=== PATIENT | male | born 1955 | race Caucasian/White ===

== ENCOUNTER 2016-06-16 18:22 | Emergency (ER) | payer OTHER ==
[~2016-06-16] VITALS: Ht 190.5 cm; Wt 123.1 kg
[~2016-06-16 18:22] MED LIST: CALC500C3 PO; LEVO200T6 PO; RANI75TA7 PO; TRAM-10 PO
[2016-06-16 18:23] VITALS: TEMP 36.5; Ht 190.5 cm; Wt 123.1 kg
[2016-06-16] MEDS ORDERED: ONDANSETRON INJ 2 MG/ML 2 ML VIAL IV STA (18:53)
[2016-06-16 18:55] LABS: BASO % 0.3 %; BASO ABS # 0.03 K/uL (0-0.2); COMPLETE YES; EOS % 1.9 %; HEMATOCRIT 41.9 % (42-52); IG% 0.2 %; LYMPH % 43.2 %; LYMPH ABS # 4.85 K/uL (1.2-3.4); MEAN CELL VOLUME 90.3 fL (80-100); MEAN CORPUSCULAR HEMOGLOBIN 32.5 pg (25-34); MEAN PLATELET VOLUME 9.7 fL (7.4-10.4); MONO % 5.3 %; NEUT % 49.1 %; PLATELET COUNT 181 K/uL (130-400); RED BLOOD COUNT 4.64 M/uL (4.7-6.1); WHITE BLOOD COUNT 11.22 K/uL (4.8-10.8)
[2016-06-16 19:02] LABS: ALT/SGPT 32 U/L (12-78); BLOOD UREA NITROGEN 27 mg/dl (7-18); BUN/CREATININE RATIO 19.5 (10-20); CALCIUM 8.4 mg/dl (8.5-10.1); CARBON DIOXIDE 22 mmol/L (21-32); CHLORIDE 102 mmol/L (98-107); GLUCOSE 128 mg/dl (70-99); POTASSIUM 3.4 mmol/L (3.5-5.1); SODIUM 139 mmol/L (136-145)
[2016-06-16 19:04] LABS: INR 1.1 (0.9-1.1); PARTIAL THROMBOPLASTIN RATIO 1.1; PROTHROMBIN TIME (PATIENT) 12.3 SECONDS (9.0-12.0)
[2016-06-16 19:05] VITALS: O2SAT 97
[2016-06-16 19:06] LABS: ISTAT CREATININE 1.2 mg/dl (0.6-1.3); ISTAT IONIZED CALCIUM 1.04 mmol/l (1.12-1.32)
[2016-06-16 19:07] LABS: ALKALINE PHOSPHATASE 60 U/L (45-117); AST/SGOT 25 U/L (15-37)
--- NOTE | 2016-06-16 19:11 | DIAGNOSTIC IMAGING REPORT ---
CHEST ONE VIEW PORTABLE CLINICAL HISTORY: CHEST PAIN dyspnea COMPARISON STUDY: 02/26/2007 FINDINGS: The bones soft tissues and hemidiaphragms are normal. The cardiomediastinal silhouette is normal. The lungs are clear. The pulmonary vasculature is normal. IMPRESSION: Negative chest. Electronically signed by: Dylan Bhatt M.D. 06/16/2016 7:09 PM Dictated Date/Time: 06/16/2016 7:09 PM
[2016-06-16] MEDS ORDERED: LABETALOL HCL IV 5 MG/ML 20ML IV STA (19:19)
[2016-06-16] MEDS ORDERED: OPTIRAY 320 IV PRN (19:30)
[2016-06-16] MEDS ORDERED: HYDROmorphone INJ 0.5 MG/0.5 ML SYR IV STA (19:32)
--- NOTE | 2016-06-16 19:32 | DIAGNOSTIC IMAGING REPORT ---
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 Dissection extends to the aortic valve with probable involvement of that structure. There is probable involvement of the proximal 1 to 2 cm of the right subclavian artery. The dissection extends through the entire length of the thoracic aorta. There is extension to the anterior margin of the anterior abdominal aorta. There is compromised vascular flow to the left kidney most likely secondary to developing thrombosis of the proximal left renal arterial vasculature. Enhancing characteristics of the right kidney continue unremarkable. There is partial involvement of the origin of the celiac axis. The dissection extends to the proximal aspect of the right iliac artery. The left iliac artery is occluded. There is surrounding soft tissue edematous change about the course of the left iliac artery to the left inguinal region. There is a trace amount of collateral vascular flow to the proximal left femoral artery and profunda artery. The bowel pattern is nonobstructive. Lungs are grossly clear. Minimal scattered bibasilar dependent atelectatic change. IMPRESSION: 1. 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 2. Probable involvement of the aortic valve with an acute dissection extending to the proximal right subclavian artery, as well as throughout the entire length of the thoracic aorta. 3. Dissection of the entire abdominal aorta with vascular occlusion of the left renal artery as well as left iliac arterial vasculature.. 4. Nonocclusive dissection proximal aspects celiac axis. 5. Nonobstructive bowel pattern. 6. Lungs are grossly clear. This report was phoned to Dr. Garcia in the emergency room at 7:25 PM Electronically signed by: Dylan Bhatt M.D. 06/16/2016 7:31 PM Dictated Date/Time: 06/16/2016 7:21 PM
[2016-06-16] MEDS ORDERED: NiCARDipine IV 25 MG in SODIUM CHLORIDE 0.9% 250ML 240 ML IV STA ×2 (19:33→19:34)
[2016-06-16] MEDS: HYDROmorphone INJ 1 MG/ML SYR IV PRN ×3 (19:35→20:04)
[2016-06-16 20:10] VITALS: BP 168/76; PULSE 54; O2SAT 98
--- NOTE | 2016-06-17 02:43 | EMERGENCY ROOM VISIT NOTE ---
History Report prepared by Jelani: Carlos Holcomb Under the Supervision of: Dr. Ramy Garcia M.D. First contact with patient: 18:44 Chief Complaint: CHEST PAIN Stated Complaint: BURNING CHEST AND ABDOMEN ,NUMB LEGS Nursing Triage Summary: "stomach pain, into chest then numbness in left leg; started about 1730 today. History of Present Illness The patient is a 61 year old male who presents to the Emergency Room with complaints of persistent back pain that started one hour prior to arrival. The patient describes the pain as severe and notes that it radiates down his left hip, buttocks, and the back of his left leg. He notes that it started all of a sudden and he has no history of this pain in the past. The patient describes the discomfort in his leg as feeling like his circulation is getting cut off and "getting crushed." In addition to the discomfort, he also complains of numbness in that same leg. He notes 6 years ago, he had a DVT in the same leg. He also complains of stomach burning that radiates into his chest and diaphoresis. Pt denies LOC, headache, fevers, chills, visual changes, neck pain , breathing difficulties, nausea, vomiting, melena, hematochezia, urinary symptoms, lymphadenopathy, rash, or other complaints. 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 A total of ten systems were reviewed and were otherwise negative. Past Medical & Surgical Medical Problems: (1) DVT (deep venous thrombosis) Family History Blood clots Cancer Social History Smoking Status: Current Every Day Smoker Marital Status: Housing Status: lives with significant other Occupation Status: employed Current/Historical Medications Scheduled Levothyroxine Sodium (Levothyroxine Sodium), 200 MCG PO DAILY Scheduled PRN Calcium Carbonate (Tums), 1,000 MG PO UD PRN for Indigestion Allergies Coded Allergies: No Known Allergies (Verified , 06/16/16) Physical Exam Vital Signs Date Time Temp Pulse Resp B/P Pulse Ox O2 Delivery O2 Flow Rate FiO2 06/16/16 20:10 54 18 168/76 98 06/16/16 19:42 58 16 195/84 98 Nasal Cannula 3.0 200/77 06/16/16 19:19 62 06/16/16 19:05 97 Nasal Cannula 2.0 06/16/16 19:00 68 18 151/60 95 Room Air 162/70 06/16/16 18:36 98 Room Air 06/16/16 18:33 97 Room Air 06/16/16 18:23 36.5 74 18 206/76 95 Room Air Physical Exam GENERAL: Awake, alert, very uncomfortable appearing, moderate distress. HENT: Normocephalic, atraumatic. Oropharynx unremarkable. EYES: Normal conjunctiva. Sclera non-icteric. NECK: Supple. No nuchal rigidity. FROM. No JVD. RESPIRATORY: Clear to auscultation. CARDIAC: Regular rate, normal rhythm. Upper Extremities warm and well perfused. Left lower extremity slightly dusky. Blood pressure 151/60 on right arm and 162/70 on left arm. ABDOMEN: Soft, non-distended. Epigastric tenderness. No rebound or guarding. No masses. RECTAL: Deferred. MUSCULOSKELETAL: Chest examination reveals no tenderness. The back is symmetrical on inspection without obvious abnormality. There is no CVA tenderness to palpation. No joint edema. NEURO: Normal sensorium. No sensory noted. Severe left leg weakness, 0 out of 5 strength. No other neurologic deficits noted. SKIN: No rash or jaundice noted. Medical Decision & Procedures ER Provider Diagnostic Interpretation: X ray results as stated below per my interpretation and radiologist interpretation. Other radiology results as stated below per my review and radiologist interpretation CHEST ONE VIEW PORTABLE CLINICAL HISTORY: CHEST PAIN dyspnea COMPARISON STUDY: 02/26/2007 FINDINGS: The bones soft tissues and hemidiaphragms are normal. The cardiomediastinal silhouette is normal. The lungs are clear. The pulmonary vasculature is normal. IMPRESSION: Negative chest. Electronically signed by: Dylan Bhatt M.D. 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 Dissection extends to the aortic valve with probable involvement of that structure. There is probable involvement of the proximal 1 to 2 cm of the right subclavian artery. The dissection extends through the entire length of the thoracic aorta. There is extension to the anterior margin of the anterior abdominal aorta. There is compromised vascular flow to the left kidney most likely secondary to developing thrombosis of the proximal left renal arterial vasculature. Enhancing characteristics of the right kidney continue unremarkable. There is partial involvement of the origin of the celiac axis. The dissection extends to the proximal aspect of the right iliac artery. The left iliac artery is occluded. There is surrounding soft tissue edematous change about the course of the left iliac artery to the left inguinal region. There is a trace amount of collateral vascular flow to the proximal left femoral artery and profunda artery. The bowel pattern is nonobstructive. Lungs are grossly clear. Minimal scattered bibasilar dependent atelectatic change. IMPRESSION: 1. 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 2. Probable involvement of the aortic valve with an acute dissection extending to the proximal right subclavian artery, as well as throughout the entire length of the thoracic aorta. 3. Dissection of the entire abdominal aorta with vascular occlusion of the left renal artery as well as left iliac arterial vasculature.. 4. Nonocclusive dissection proximal aspects celiac axis. 5. Nonobstructive bowel pattern. 6. Lungs are grossly clear. This report was phoned to Dr. Garcia in the emergency room at 7:25 PM Electronically signed by: Dylan Bhatt M.D. 06/16/2016 7:31 PM Dictated Date/Time: 06/16/2016 7:21 PM Laboratory Results 06/16/16 18:40 Red Blood Count 4.64, Mean Corpuscular Volume 90.3, Mean Corpuscular Hemoglobin 32.5, Mean Corpuscular Hemoglobin Concent 36.0, Mean Platelet Volume 9.7, Neutrophils (%) (Auto) 49.1, Lymphocytes (%) (Auto) 43.2, Monocytes (%) (Auto) 5.3, Eosinophils (%) (Auto) 1.9, Basophils (%) (Auto) 0.3, Neutrophils # (Auto) 5.51, Lymphocytes # (Auto) 4.85, Monocytes # (Auto) 0.60, Eosinophils # (Auto) 0.21, Basophils # (Auto) 0.03 1/29/17 18:40 Test 06/16/16 18:40 06/16/16 18:49 06/16/16 18:53 White Blood Count 11.22 K/uL (4.8-10.8) Red Blood Count 4.64 M/uL (4.7-6.1) Hemoglobin 15.1 g/dL (14.0-18.0) Hematocrit 41.9 % (42-52) Mean Corpuscular Volume 90.3 fL (80-100) Mean Corpuscular Hemoglobin 32.5 pg (25-34) Mean Corpuscular Hemoglobin Concent 36.0 g/dl (32-36) Platelet Count 181 K/uL (130-400) Mean Platelet Volume 9.7 fL (7.4-10.4) Neutrophils (%) (Auto) 49.1 % Lymphocytes (%) (Auto) 43.2 % Monocytes (%) (Auto) 5.3 % Eosinophils (%) (Auto) 1.9 % Basophils (%) (Auto) 0.3 % Neutrophils # (Auto) 5.51 K/uL (1.4-6.5) Lymphocytes # (Auto) 4.85 K/uL (1.2-3.4) Monocytes # (Auto) 0.60 K/uL (0.11-0.59) Eosinophils # (Auto) 0.21 K/uL (0-0.5) Basophils # (Auto) 0.03 K/uL (0-0.2) RDW Standard Deviation 41.9 fL (36.4-46.3) RDW Coefficient of Variation 12.6 % (11.5-14.5) Immature Granulocyte % (Auto) 0.2 % Immature Granulocyte # (Auto) 0.02 K/uL (0.00-0.02) Prothrombin Time 12.3 SECONDS (9.0-12.0) Prothromb Time International Ratio 1.1 (0.9-1.1) Activated Partial Thromboplast Time 27.9 SECONDS (21.0-31.0) Partial Thromboplastin Ratio 1.1 Est Creatinine Clear Calc Drug Dose 76.7 ml/min Estimated GFR () 62.8 Estimated GFR (Non- 54.2 BUN/Creatinine Ratio 19.5 (10-20) Calcium Level 8.4 mg/dl (8.5-10.1) Total Bilirubin 0.3 mg/dl (0.2-1) Direct Bilirubin < 0.1 mg/dl (0-0.2) Aspartate Amino Transf (AST/SGOT) 25 U/L (15-37) Alanine Aminotransferase (ALT/SGPT) 32 U/L (12-78) Alkaline Phosphatase 60 U/L (45-117) Creatine Kinase MB 7.0 ng/ml (0.5-3.6) Creatine Kinase MB Ratio (0-3.0) Total Protein 7.3 gm/dl (6.4-8.2) Albumin 3.9 gm/dl (3.4-5.0) Lipase 144 U/L (73-393) Bedside Hemoglobin 15.0 g/dl (14.0-18.0) Bedside Hematocrit 44 % (42-52) Bedside Sodium 139 mEq/L (135-144) Bedside Potassium 3.3 mEq/L (3.3-5.0) Bedside Chloride 101 mEq/L (101-112) Bedside Total CO2 23 mEq/l (24-31) Anion Gap 20.0 mmol/L (16-25) Bedside Blood Urea Nitrogen 26 mg/dl (7-18) Bedside Creatinine 1.2 mg/dl (0.6-1.3) Bedside Glucose (other) 132 mg/dl (70-99) Bedside Ionized Calcium (Riccardo) 1.04 mmol/l (1.12-1.32) Bedside Troponin I 0.010 ng/ml (0-0.045) Laboratory results reviewed by me Medications Administered Medications (Trade) Dose Ordered Sig/[facility] Route Start Time Stop Time Status Last Admin Dose Admin Hydromorphone HCl (Dilaudid Inj) 1 mg Q15M PRN IV 06/16/16 19:00 06/16/16 21:02 DC 06/16/16 20:04 1 MG Ondansetron HCl (Zofran Inj) 4 mg NOW STAT IV 06/16/16 18:53 06/16/16 18:54 DC 06/16/16 18:55 4 MG Labetalol HCl (Normodyne IV) 20 mg NOW STAT IV 06/16/16 19:19 06/16/16 19:20 DC 06/16/16 19:23 20 MG Hydromorphone HCl 0.5 mg 0.5 mg NOW STAT IV 06/16/16 19:32 06/16/16 19:33 DC 06/16/16 19:32 0.5 MG Nicardipine HCl/ Sodium Chloride (Cardene Iv/Nss 250ml) 250 ml @ 0 mls/hr Q0M STAT IV 06/16/16 19:33 06/16/16 19:34 DC 06/16/16 19:44 50 MLS/HR ECG Indication: back/shoulder pain Rate (beats per minute): 70 Rhythm: sinus rhythm Findings: PVC (occasional), no acute ischemic change ED Course 1851: The patient was evaluated in room A11. A complete history and physical exam was performed. 1852: Ordered Zofran Inj 4 mg IV. 1899: Ordered Dilaudid Inj 1 mg IV/pain. Patient escorted to CT scan. 1916: At this time, I discussed the patient's case with Dr. Pedroza - [place] [facility] [place] noted that he could not take the patient here because of the involvement of the arch in the dissection. 1918: Ordered Labetalol HCl 20 mg IV. 1922: At this time, I discussed the patient's case with Dr. Bhatt - Radiology [facility] and he agreed with the treatment plan. 1924: At this time, I discussed the patient's case with Dr. Sahu - Thoracic and Cardiac Surgery [facility] and he agreed to accept the patient for transfer. 0: Ordered Ioversol 100 ml IV/interaction checking. 1931: Ordered Dilaudid Inj 0.5 mg IV, Nicardipine HCl 25 mg/ NSS 250 ml @ Protocol IV, 5mg/hr. 1934: At this time, I reevaluated the patient. His pressure was still elevated, but his pain was down from an 8/10 to a 5/10. The [facility] is 15 minutes out for transfer. 1946: At this time before the patient was transferred, the Nicardipine drip was titrated from 7.5 to 10 mg. blood pressure diminished to 125/67. 1950: The patient was transferred via [facility] to [facility] Cardiothoracic Surgery at this time. Medical Decision Triage Nursing notes reviewed. The patient's presentation and history were concerning for chest, abdominal, and flank pain. Etiologies such as aortic dissection, cardiac ischemia, pulmonary embolism, pneumonia, pneumothorax, musculoskeletal, infections, gastrointestinal, as well as others were entertained. The patient was evaluated. Clinically he was ill appearing and in distress. He was hypertensive. Physical exam is was very concerning as the patient had no function of his left lower extremity. Patient had i-STAT performed. ECG was unremarkable. The patient had a normal creatinine. I contacted CT imaging and the patient was taken emergently for a dissection study. The patient did receive Dilaudid and Zofran. He underwent the imaging and this revealed a dissection from the arch down to the left iliac. I did page vascular surgery. I was contacted by Dr. bhatt of radiology. I did discuss the case with vascular here and unfortunately because of the aortic arch involvement he will need to be transferred. I did discuss this with the patient and his . They elected for [facility]. The patient was given IV labetalol. The patient's heart rate decreased but he was still hypertensive. Blood work was otherwise unremarkable. Nicardipine ordered. I did consult with Dr. Sahu of cardiothoracic surgery at [facility]. He accepted the patient in transfer. He agreed with the blood pressure management. The nicardipine drip was titrated. The patient was continuously reassessed. He received additional doses of IV Dilaudid. His blood pressure did decrease. I updated the patient's family. [facility] arrived and they were informed. The patient was prepped and taken to the [facility] for emergent transfer. The chart was completed utilizing [email or web address] Speech voice recognition software. Grammatical errors, random word insertions, pronoun errors, and incomplete sentences are an occasional consequence of this system due to software limitations, ambient noise, and hardware issues. Any formal questions or concerns about the content, text, or information contained within the body of this dictation should be directly addressed to the physician for clarification. Consults Time Called: 1911 Consulting Physician: Dr. Pedroza - [place]ovascular [place] [facility] [place] Returned Call: 1916 At this time, I discussed the patient's case with Dr. Pedroza and he noted that he could not take the patient here because of the involvement of the arch in the dissection. Additional Consults: Time Called: 1919 Consulted Physician: Dr. Bhatt - Radiology [facility] Returned Call: 1922 Additional Comments: At this time, I discussed the patient's case with Dr. Bhatt and he agreed with the treatment plan. Time Called: 1920 Consulted Physician: Dr. Sahu - Thoracic and Cardiac Surgery [facility] Returned Call: 1924 Additional Comments: At this time, I discussed the patient's case with Dr. Sahu and he agreed to accept the patient for transfer. Impression Primary Impression: Aortic dissection Critical Care I have personally spent greater than 75 minutes of critical care time in the direct management of this patient. This includes bedside care, interpretation of diagnostic studies, and testing, discussion with consultants, patient, and family members, and other required patient management activities. This 75 minutes is in excess of all separately billable procedures. Scribe Attestation The scribe's documentation has been prepared under my direction and personally reviewed by me in its entirety. I confirm that the note above accurately reflects all work, treatment, procedures, and medical decision making performed by me. Departure Information Dispostion Transfer Acute Care Facility (Transfer to Cardiothoracic Surgery at [facility] - Dr. Sahu) Referrals Shun Fraser M.D. (PCP)
[2016-11-12] MEDS ORDERED: LPR25 PO (11:24)
== END 2016-06-16 20:10 | disposition short-term general hospital (02) ==
LOC: C.EDB 18:23 → C.ED 20:10
DX: I71.03 Dissection of thoracoabdominal aorta (principal); I10 Essential (primary) hypertension; Z86.718 Personal history of other venous thrombosis and embolism; Z83.2 Family history of diseases of the blood and blood-forming organs and certain disorders involving the immune mechanism; F17.200 Nicotine dependence, unspecified, uncomplicated

== ENCOUNTER 2016-06-27 11:22 | Inpatient (IN) | payer OTHER ==
[~2016-06-27] VITALS: Ht 190.5 cm; Wt 122.8 kg
[2016-06-27] VITALS (13 sets, daily range): BP systolic 104–143; BP diastolic 57–81; PULSE 75–94; TEMP 36.5–37; O2SAT 95–100; Ht 190.5 cm; Wt 122.8 kg
[~2016-06-27 11:22] MED LIST changes: -RANI75TA7 PO; -TRAM-10 PO
[2016-06-27] MEDS ORDERED: HEPARIN SOD (PORCINE) 1000 UNIT/ML 10 ML VIAL ONE (11:24)
[2016-06-27] MEDS ORDERED: NiCARDipine HCL INJ 2.5 MG/ML 10 ML AMP ONE (11:24)
[2016-06-27] MEDS ORDERED: NITROGLYCERIN/D5W 100MCG/ML 20ML SYR ONE (11:24)
[2016-06-27] MEDS ORDERED: MIDAZOLAM HCL 1 MG/ML 2ML VIAL ONE (11:25)
[2016-06-27] MEDS ORDERED: FENTANYL CITRATE INJ 50 MCG/1 ML 2 ML VIAL ONE (11:25)
[2016-06-27 11:50] LABS: BASO % 0.2 %; BASO ABS # 0.04 K/uL (0-0.2); EOS % 1.5 %; HEMATOCRIT 22.2 % (42-52); IG% 4.4 %; LYMPH % 15.1 %; LYMPH ABS # 2.49 K/uL (1.2-3.4); MEAN CELL VOLUME 90.6 fL (80-100); MEAN CORPUSCULAR HGB CONC 34.2 g/dl (32-36); MEAN PLATELET VOLUME 9.8 fL (7.4-10.4); MONO % 9.7 %; NEUT % 69.1 %; PLATELET COUNT 357 K/uL (130-400); RED BLOOD COUNT 2.45 M/uL (4.7-6.1); WHITE BLOOD COUNT 16.47 K/uL (4.8-10.8)
--- NOTE | 2016-06-27 11:56 | DIAGNOSTIC IMAGING REPORT ---
CHEST ONE VIEW PORTABLE CLINICAL HISTORY: PORTABLE dyspnea COMPARISON STUDY: 06/16/2016 FINDINGS: Cardiomegaly post interval median sternotomy. Diaphragms smooth. Lungs are clear. IMPRESSION: Cardiomegaly post median sternotomy Electronically signed by: Dylan Bhatt M.D. 06/27/2016 11:55 AM Dictated Date/Time: 06/27/2016 11:54 AM
[2016-06-27 11:58] LABS: INR 1.3 (0.9-1.1); PARTIAL THROMBOPLASTIN RATIO 1.3; PROTHROMBIN TIME (PATIENT) 13.9 SECONDS (9.0-12.0)
[2016-06-27 12:05] LABS: ISTAT CREATININE 1.6 mg/dl (0.6-1.3); ISTAT HEMOGLOBIN 7.8 g/dl (14.0-18.0); ISTAT IONIZED CALCIUM 0.99 mmol/l (1.12-1.32)
[2016-06-27] MEDS ORDERED: NYSS/ PO (12:08)
[2016-06-27] MEDS ORDERED: MOMLX PO (12:08)
[2016-06-27] MEDS ORDERED: ALUMSUS2 PO (12:08)
[2016-06-27] MEDS ORDERED: OXYC1TAB3 PO (12:08)
[2016-06-27] MEDS ORDERED: METO25TA56 PO (12:08)
[2016-06-27] MEDS ORDERED: DOCU100C31 PO (12:08)
[2016-06-27] MEDS ORDERED: FAMO20TA11 PO (12:08)
[2016-06-27] MEDS ORDERED: SENN-65 PO (12:08)
[2016-06-27] MEDS ORDERED: PRENTAB26 PO (12:08)
[2016-06-27] MEDS ORDERED: FRS/40 PO (12:08)
[2016-06-27] MEDS ORDERED: POTA10CA28 PO (12:08)
[2016-06-27] MEDS ORDERED: WARF7.5T4 PO (12:08)
[2016-06-27] MEDS ORDERED: ATOR-54 PO (12:08)
[2016-06-27] MEDS ORDERED: POLY335019 PO (12:08)
[2016-06-27] MEDS ORDERED: FLUT0.15 NAE (12:08)
[2016-06-27] MEDS ORDERED: ENOX120I SQ (12:08)
[2016-06-27] MEDS ORDERED: ONDA4TAB46 PO (12:08)
[2016-06-27] MEDS ORDERED: ASPI-435 PO (12:08)
[2016-06-27 12:13] LABS: BUN/CREATININE RATIO 20.8 (10-20); CALCIUM 7.5 mg/dl (8.5-10.1); CKMB/CK RATIO 1.9 (0-3.0); MAGNESIUM 2.6 mg/dl (1.8-2.4)
[2016-06-27 12:22] LABS: ANISOCYTOSIS PRESENT; COMPLETE YES; POTASSIUM 4.9 mmol/L (3.5-5.1)
[2016-06-27 12:43] LABS: CREATININE 1.6 mg/dl (0.60-1.40)
--- NOTE | 2016-06-27 13:48 | DIAGNOSTIC IMAGING REPORT ---
CT ANGIO ABD/PELVIS WITH CONTRAST CT DOSE: CLINICAL HISTORY: Chest pain. Aortic dissection. TECHNIQUE: The patient was scanned in a dynamic helical fashion during intravenous administration 117 cc of Optiray 320. MIP imaging was performed. COMPARISON STUDY: 06/16/2016 FINDINGS: Images the lung bases reveal a moderate to large pericardial effusion measuring 29 mm in thickness. There are bibasal airspace opacities, likely atelectatic. No hepatic splenic or pancreatic masses are visualized. No adrenal masses are visualized. No gallbladder abnormalities are visualized. There are foci of diminished enhancement within the left kidney consistent with renal infarction. There is an 11 mm exophytic left renal mass which exceeds water attenuation and is therefore indeterminate. There are no transition zones indicate bowel obstruction. There is a fat-containing left inguinal hernia. There is air within the bladder, likely iatrogenic. The appendix appears normal. There is a dissection flap within the abdominal aorta. 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 The dissection extends into the superior mesenteric artery. The dissection extends into both renal arteries. The dissection flap extends into the right common iliac artery. There is also a dissection flap within the left common femoral artery. IMPRESSION: 1. Abdominal or dissection. The dissection flap extends into the superior mesenteric artery, both renal arteries, the right common iliac artery. There is also a dissection flap in the left common femoral artery 2. 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 Moderate to large pericardial effusion 4. Trace perihepatic fluid. 5. Foci of diminished enhancement within the left kidney consistent with renal infarcts 6. 11 mm indeterminate exophytic left renal nodule which exceeds water attenuation Electronically signed by: Tobi Alexandre M.D. 06/27/2016 1:47 PM Dictated Date/Time: 06/27/2016 1:35 PM
--- NOTE | 2016-06-27 14:00 | DIAGNOSTIC IMAGING REPORT ---
CHEST COMBO ANGIO DISSECTION CLINICAL HISTORY: Evaluate pericardial effusion post dissection. COMPARISON STUDY: CTA of the chest June 16, 2016. TECHNIQUE: Unenhanced and arterial phase images of the chest were obtained. Injection of 117 cc of Optiray 320 IV was uneventful. 3-D volume renderings and maximal intensity projections were viewed on an independent 3-D workstation. FINDINGS: There are postsurgical findings consistent with an interval median sternotomy and ascending aortic repair. The graft is intact. There is no evidence for rupture. A residual aortic dissection is noted although size of the true lumen has improved since exam of June 16, 2016. As before, the dissection extends into the proximal brachiocephalic trunk. Visualized portions of the right common carotid artery appear patent. The dissection extends into the left subclavian artery and involves visualized portions of the left axillary and brachial arteries. The distal aspect of the dissection flap is not imaged on this exam. The left common carotid artery is patent. The dissection extends along the course of the descending thoracic aorta with involvement of the superior mesenteric artery and diminished perfusion to the left kidney. There is narrowing at the origin of the celiac axis. These findings are better depicted on the CTA of the abdomen and pelvis. There is a large low-attenuation pericardial effusion. The heart is mildly enlarged. There is a small amount of gas within the epicardial fat which is postprocedural. There are trace bilateral pleural effusions. Associated lower lobe opacities likely reflect atelectasis. There is no pneumothorax. Central airways are patent. There are multiple linear filling defects within bilateral lower lobe pulmonary arteries. In retrospect, these were present on CT of June 16, 2016. IMPRESSION: 1. Large pericardial effusion. 2. Status post interval median sternotomy and ascending aortic repair with graft. Graft intact. Expected postsurgical appearance of the ascending aortic graft. Residual dissection involving the aortic arch, descending thoracic aorta, abdominal aorta, brachiocephalic trunk, left subclavian artery and superior mesenteric artery. Involvement of the abdominal aorta and branch vessels within the abdomen and pelvis is better depicted on the CTA of the abdomen and pelvis. 3. Linear filling defects within several bilateral lower lobe pulmonary arteries consistent with pulmonary emboli. In retrospect, these were present on prior CT of June 16, 2016 and likely reflect chronic pulmonary emboli. 4. Trace bilateral pleural effusions with associated opacities which likely reflect atelectasis. Electronically signed by: Reji Keller M.D. 06/27/2016 1:58 PM Dictated Date/Time: 06/27/2016 1:36 PM
[2016-06-27 14:07] LABS: URINE APPEARANCE CLEAR (CLEAR); URINE BILIRUBIN NEG (NEG); URINE COLOR YELLOW; URINE NITRITE NEG (NEG); UROBILINOGEN NEG (NEG)
[2016-06-27] MEDS ORDERED: SODIUM CHLORIDE 0.9% 1000ML 1,000 ML IV STA (14:19)
[2016-06-27 14:24] LABS: MANUAL MICROSCOPIC REQUIRED? NO; REVIEW REQ? NO
--- NOTE | 2016-06-27 14:30 | ECHOCARDIOGRAM REPORT ---
*NOTICE TO RECEIVING REPUBLICAN AGENCY This information is strictly Confidential and protected under [place] law. [place] law prohibits you from making any further disclosure of this information unless further disclosure is expressly permitted by the written consent of the person to whom it pertains or is authorized by law. A general authorization for the release of medical or other information is not sufficient for this purpose. Hospital accepts no responsibility if the information is made available to any other person, INCLUDING THE PATIENT. Interpretation Summary * Name: ZEE RENEE Study Date: 06/27/2016 11:52 AM BP: 106/68 mmHg * Patient Location: ED HR: 92 * : 1955 (M/d/yyyy) Gender: Male Height: 75 in * Age: 61 yrs Ethnicity: [place] Weight: 281 lb * Performed By: Zainab Fountain RDCS * * Reason For Study: AMI * BSA: 2.5 m2 * History: AMI * -- Conclusions -- * Limited Echo in the setting of possible Heart Alert. * 1. Normal LV size with moderate concentric LVH. * 2. Normal LV systolic function. LVEF 60-65%. No regional wall motion abnormalities. * 3. Grossly normal RV size and function. * 4. No significant aortic stenosis or regurgitation. * 5. Aortic root not well visualized. * 6. Moderate perciardial effusion. No apparent tamponade. * 7. Normal IVC suggestive of normal RA pressure. * 8. No prior studies for comparison. Procedure Details * Left Ventricle The left ventricle is grossly normal size. There is moderate concentric left ventricular hypertrophy. Ejection Fraction = 60-65%. No regional wall motion abnormalities noted. * Right Ventricle The right ventricle is grossly normal size. The right ventricular systolic function is qualitatively normal. * Atria The left atrium is mildly dilated. Right atrial size is normal. No ASD detected; PFO is not assessed. * Mitral Valve The mitral valve is grossly normal. There is trace mitral regurgitation. * Tricuspid Valve The tricuspid valve is not well visualized, but is grossly normal. * Aortic Valve No hemodynamically significant valvular aortic stenosis. There is no significant aortic regurgitation. * Great Vessels Aortic root not well visualized * Pericardium/Pleural Moderate size pericardial effusion. There is no diastolic compression of the right ventricle to suggest cardiac tamponade. * Great Vessels Normal inferior vena cava size and collapsability with sniff indicates a normal right atrial pressure of 3 mmHg * * MMode 2D Measurements and Calculations * LVAd ap4 30.1 cm\S\2 * LVLd ap4 8.5 cm * EDV(MOD-sp4) 92.9 ml * EDV(sp4-el) 90.3 ml * LVAs ap4 16.8 cm\S\2 * LVLs ap4 7.0 cm * ESV(MOD-sp4) 39.8 ml * ESV(sp4-el) 34.3 ml * EF(MOD-sp4) 57.2 % * EF(sp4-el) 62.0 % * * LVAd ap2 28.5 cm\S\2 * LVLd ap2 9.1 cm * EDV(MOD-sp2) 78.4 ml * EDV(sp2-el) 76.2 ml * LVAs ap2 15.2 cm\S\2 * LVLs ap2 7.2 cm * ESV(MOD-sp2) 41.2 ml * ESV(sp2-el) 27.2 ml * EF(MOD-sp2) 47.4 % * EF(sp2-el) 64.3 % * * LVLd %diff 5.9 % * EDV(MOD-bp) 87.7 ml * LVLs %diff 2.5 % * ESV(MOD-bp) 40.0 ml * EF(MOD-bp) 54.3 % * * SV(MOD-sp4) 53.1 ml * SI(MOD-sp4) 20.9 ml/m\S\2 * * SV(MOD-sp2) 37.2 ml * SI(MOD-sp2) 14.7 ml/m\S\2 * * SV(MOD-bp) 47.7 ml * SI(MOD-bp) 18.8 ml/m\S\2 * * SV(sp4-el) 56.1 ml * SI(sp4-el) 22.1 ml/m\S\2 * * SV(sp2-el) 49.0 ml * SI(sp2-el) 19.3 ml/m\S\2 * * * Doppler Measurements and Calculations * Ao V2 max 114.7 cm/sec * Ao max PG 5.3 mmHg * Ao max PG (full) 2.9 mmHg * * LV V1 max PG 2.3 mmHg * * LV V1 max 76.6 cm/sec * * *
[2016-06-27] MEDS ORDERED: ACETAMINOPHEN 325 MG TAB PO ONE (15:30)
[2016-06-27] MEDS ORDERED: ONDANSETRON INJ 2 MG/ML 2 ML VIAL IV PRN (15:30)
[2016-06-27] MEDS ORDERED: NITROGLYCERIN 0.4 MG SL PER TAB CHARGE SL PRN (15:30)
--- NOTE | 2016-06-27 15:34 | CARDIOLOGY CONSULTATION ---
DATE OF CONSULTATION: 06/27/2016 DATE OF CONSULTATION: 06/27/2016. CONSULTATION REQUESTED BY: Dr. Garcia. REASON FOR CONSULTATION: Heart alert, inferolateral ST elevations on EKG. HISTORY OF PRESENT ILLNESS: Mr. Soto is a 61-year-old man recently treated at [facility] [address] in the setting of type A aortic dissection. He underwent open surgical repair with Dr. Sahu 10 days ago. More recently, he has been at [facility] rehab facility. He presented to the Emergency Department today after noted persistent chest pain in the setting of leg weakness. EKG obtained at [facility] and by EMS en route showed questionable inferolateral ST elevations and a heart alert was called en route. Per documentation from recent discharge, his recent dissection extended into the left subclavian artery and down into the left iliac artery. In addition it involved the noncoronary cuspw hich had to be repaired and aortic valve had to be resituated. Post repair BRANDYN reportedly showed no significant aortic insufficiency and the patient had intact distal pulses throughout. The patient has been doing well at [facility] since discharge. He states he has been having constant 3/4 pain, worse with deep inspiration and with movement. That pain has been largely unchanged and was similar to this morning but in addition also noted weakness in his legs. Upon arrival here, the patient was comfortable, hemodynamically stable and oxygenating well on room air. A repeat EKG showed less than [address] elevations in II, III, and V5 and V6 with T-wave inversions inferiorly. Compared to prior EKG obtained post hospitalization T-wave inversions were new. He had a point of care troponin that was positive at 0.1 and at the time of interview in the ED the patient was largely chest pain free in that he continued to have only the pain he has had since his recent surgery. His leg weakness also he felt was improving. In the setting of subtle EKG changes a stat echocardiogram was obtained. This showed a moderate pericardial effusion with no significant tamponade. There was preserved LV function with an EF of approximately 60% and no regional wall motion abnormalities. Aortic valve appeared well seated with no significant aortic insufficiency. PAST MEDICAL HISTORY: 1. Type A aortic dissection status post open repair 10 days ago. 2. Prior history of DVT, previously on Coumadin. Again now on Lovenox and Coumadin. 3. Hypothyroidism. 4. Umbilical hernia. 5. GERD. 6. BPH. 7. Ongoing tobacco use. SOCIAL HISTORY: Current every day smoker up until recently. He is . Most recently been staying at [facility]. ALLERGIES: No known drug allergies. CURRENT MEDICATIONS: Include Maalox, aspirin 81, atorvastatin 20, docusate, Lovenox, 120 mg q. 12, Pepcid, fluticasone, furosemide 40 mg daily, levothyroxine, Milk of Magnesium, Toprol 25 p.o. b.i.d., multivitamin, Nystatin, Zofran, oxycodone, MiraLax, potassium, senna and warfarin 7.5 mg. REVIEW OF SYSTEMS: Unable to be obtained in the setting of an emergent situation. PHYSICAL EXAMINATION: VITAL SIGNS: Temperature 36.9, blood pressure 134/59, heart rate of 83, satting 99% on 2 liters. GENERAL: The patient appears comfortable in no acute distress. HEAD, EYES, EARS, NOSE, AND THROAT: His sclerae were anicteric. His oropharynx is clear. Mucous membranes are moist. NECK: Supple. LUNGS: Clear to auscultation bilaterally. HEART: He had a 2/6 systolic ejection murmur heard best at the right upper sternal border. Otherwise, no appreciable murmurs, rubs or gallops. ABDOMEN: Soft, nontender, nondistended with positive bowel sounds. EXTREMITIES: He had a well-healed surgical incision down the sternal midline. He also had a well-healed surgical incision below his right clavicle. There was also a well-healed surgical incision in his left groin. He had intact radial pulses bilaterally, intact femoral pulses and intact distal pulses in his lower extremities. He had 2+ lower extremity edema to his knees bilaterally. SKIN: Showed no significant rashes or lesions. NEUROLOGIC: Cranial nerves II-XII grossly intact. Remainder of his exam was nonfocal. He was alert and oriented x3 and appropriate. LABORATORY DATA: INR was 1.3, hemoglobin 7.6, white blood cell count 16.5, platelets 357. His sodium was 130, bicarbonate of 24, BUN of 33, point of care creatinine of 1.6, calcium 7.5, magnesium 2.6. His AST was mildly elevated at 116. Alk phos mildly elevated at 179, CK-MB elevated at 4.5, ratio was normal at 1.9, albumin 2.7. IMAGING: Chest x-ray showed cardiomegaly, post-median sternotomy but no lung pathology. EKG showed sinus rhythm with sinus arrhythmia. There was subtle inferolateral ST elevations in II, III, aVF and V5 through V6 with T-wave inversion in III and aVF. ST changes improved on repeat imaging. IMPRESSION AND PLAN: 1. Recent type A aortic dissection status post surgical repair. 2. Borderline ST elevations on EKG. 3. Constant postoperative chest pain. 4. Moderate pericardial effusion. 5. Preserved left ventricular function without regional wall motion abnormalities. 6. Anemia. 7. Leukocytosis. 8. Renal insufficiency. At present, the patient is stable with postoperative chest pain, largely unchanged from recent symptoms. His EKG does show subtle ST changes, although these are not significantly different from EKG immediately postop and with normal regional wall motion on echo I do not feel this represents acute coronary obstruction. Most notable finding on initial workup is moderate pericardial effusion. There is no evidence of tamponade at this time, but in the setting of recent complicated type A aortic repair need to rule out leak/persistent dissection. I have discussed this with the Emergency Department and recommend obtaining a repeat CT scan to evaluate his aorta. Otherwise, from a cardiac standpoint, no indication for cardiac catheterization at this time. Would hold off on any anticoagulation as patient is already on Lovenox and Coumadin. When things are more stable, can be started back on prior regimen including aspirin, beta jacqueline and statin. Will continue to follow while patient is in the hospital. Thank you for consultation. LIZANDRO
[2016-06-27] MEDS ORDERED: ONDANSETRON 4 MG TAB PO PRN (15:45)
[2016-06-27] MEDS ORDERED: POLYETHYLENE (MIRALAX) 17 GM PACK PO PRN (15:45)
[2016-06-27] MEDS ORDERED: OXYCODONE HCL IR 5 MG TAB (IMMEDIATE RELEASE) PO PRN (15:45)
--- NOTE | 2016-06-27 17:25 | EMERGENCY ROOM VISIT NOTE ---
History Report prepared by Jelani: Janelle Mcgregor Under the Supervision of: Dr. Ramy Garcia M.D. First contact with patient: 11:29 Chief Complaint: HEART ALERT Stated Complaint: HEART ALERT History of Present Illness The patient is a 61 year old male who presents to the Emergency Room via EMS with complaints of intermittent mid-chest discomfort occurring for the past week and worsening today. The patient had AAA repair about a week and a half ago. He had temporarily lost function of his left leg due to the AAA. He is now able to fully use his left leg as normal. He describes the discomfort to be a pressure and fullness in his chest. He has worsening discomfort with lying on his back and with coughing. He has symptom improvement with sitting up. Since the surgery, he has been having the discomfort intermittently. He had been receiving pain medication with relief. Yesterday, he had nausea and diaphoresis with eating. It resolved with Zofran. Today, the patient had chest discomfort while walking over to the bathroom. He also had severe bilateral lower extremity weakness. He received baby Aspirin, Nitro, and Maalox in route to the Emergency Room. He currently rates a pain intensity of 3/10. He currently denies any weakness. Pt denies LOC, headache, fevers, chills, visual changes, neck pain, tearing pain radiating to the back, breathing difficulties, leg swelling, coagulation abnormalities, prolonged travel, vomiting, abdominal pain, melena, hematochezia , urinary symptoms, numbness, lymphadenopathy, rash, or other complaints. Source of History: patient Onset: about a week ago Position: chest (mid) Symptom Intensity: 3/10 Quality: pressure, other (fullness) Timing: intermittent Modifying Factors (Worsening): other (lying on his back and with coughing) Modifying Factors (Relieving): other (Sitting up; Aspirin, Nitro, and Maalox in route to the Emergency Room) Associated Symptoms: + diaphoresis, + nausea, + weakness Review of Systems See HPI for pertinent positives and negatives. A total of ten systems were reviewed and were otherwise negative. Past Medical & Surgical Medical Problems: (1) Anemia (2) Aortic dissection (3) Chest pain (4) DVT (deep venous thrombosis) (5) Hypertension (6) Pericardial effusion Family History Blood clots Cancer Social History Smoking Status: Current Every Day Smoker Marital Status: Housing Status: lives with significant other Occupation Status: employed Current/Historical Medications Scheduled Aluminum/Magnesium/Simeth (Maalox Max Susp), 30 ML PO Q4 Aspirin (Aspirin 81), 81 MG PO DAILY Atorvastatin (Lipitor), 20 MG PO DAILY Docusate Sodium (Docusate Sodium), 100 MG PO BID Enoxaparin (Lovenox), 120 MG SQ Q12H Famotidine (Pepcid), 10 MG PO DAILY Fluticasone Propionate (Nasal) (Flonase Allergy Relief), 2 SPRAYS TONE DAILY Furosemide (Lasix), 40 MG PO DAILY Levothyroxine Sodium (Levothyroxine Sodium), 200 MCG PO DAILY Magnesium Hydroxide (Milk of Magnesia), 30 ML PO DAILY Metoprolol Tartrate (Lopressor) (Lopressor), 25 MG PO BID Multivit/Min/Iron/Fol Ac/Pren ( Vitamin), 1 TAB PO DAILY Nystatin (Nystatin Suspension), 5 ML PO DAILY Potassium Chloride (Micro-K Ext Rel), 10 MEQ PO DAILY Senna/Docusate Sod (Senokot S), 1 TAB PO BID Warfarin Sod (Jantoven), 7.5 MG PO DAILY Scheduled PRN Ondansetron Hcl (Zofran), 4 MG PO Q6 PRN for Nausea Oxycodone Immediate Rel Tab (Roxicodone Ir), 5 MG PO Q6H PRN for Pain Polyethylene Glycol 3350 (Miralax), 17 GM PO DAILY PRN for Constipation Allergies Coded Allergies: No Known Allergies (Verified , 06/16/16) Physical Exam Vital Signs Date Time Temp Pulse Resp B/P Pulse Ox O2 Delivery O2 Flow Rate FiO2 06/27/16 16:15 82 18 102/59 98 Nasal Cannula 2.0 06/27/16 15:49 88 20 90/65 98 Nasal Cannula 2.0 06/27/16 14:31 105 18 90/67 99 Nasal Cannula 2.0 06/27/16 14:11 102 06/27/16 14:02 92 20 103/68 100 Nasal Cannula 2.0 06/27/16 13:51 96 18 92/71 96 Nasal Cannula 2.0 06/27/16 13:32 92 20 104/79 98 Nasal Cannula 2.0 06/27/16 12:54 94 20 99/65 93 Nasal Cannula 2.0 06/27/16 12:39 106 20 113/74 98 Nasal Cannula 2.0 06/27/16 12:21 80 20 104/69 97 Room Air 06/27/16 12:14 83 20 134/59 99 Nasal Cannula 2.0 06/27/16 12:03 92 06/27/16 11:59 90 18 106/68 97 Nasal Cannula 2.0 06/27/16 11:54 92 20 105/59 97 Nasal Cannula 2.0 06/27/16 11:44 Nasal Cannula 2.0 06/27/16 11:42 95 22 89/60 92 Room Air 06/27/16 11:40 96 Room Air 06/27/16 11:34 94 Room Air 06/27/16 11:31 36.9 92 20 109/68 96 Room Air Physical Exam GENERAL: Awake, alert, tired-appearing, in no distress HENT: Normocephalic, atraumatic. Oropharynx unremarkable. EYES: Normal conjunctiva. Sclera non-icteric. NECK: Supple. No nuchal rigidity. FROM. No JVD. RESPIRATORY: Clear to auscultation. CARDIAC: Regular rate, normal rhythm. Extremities warm and well perfused. Pulses equal. ABDOMEN: Soft, non-distended. No tenderness to palpation. No rebound or guarding. No masses. Ecchymosis on the abdomen. RECTAL: Deferred. MUSCULOSKELETAL: Chest examination reveals no tenderness. Sternotomy and surgical incisions clean, dry, and intact. The back is symmetrical on inspection without obvious abnormality. There is no CVA tenderness to palpation. No joint edema. LOWER EXTREMITIES: Calves are equal size bilaterally and non-tender. No discoloration. 3+ edema slightly worse on the left. NEURO: Normal sensorium. No sensory or motor deficits noted. SKIN: No rash or jaundice noted. Medical Decision & Procedures ER Provider Diagnostic Interpretation: X ray results as stated below per my interpretation and radiologist interpretation. CT results as stated below per my review and radiologist interpretation CHEST ONE VIEW PORTABLE CLINICAL HISTORY: PORTABLE dyspnea COMPARISON STUDY: 06/16/2016 FINDINGS: Cardiomegaly post interval median sternotomy. Diaphragms smooth. Lungs are clear. IMPRESSION: Cardiomegaly post median sternotomy Electronically signed by: Dylan Bhatt M.D. 06/27/2016 11:55 AM Dictated Date/Time: 06/27/2016 11:54 AM CHEST COMBO ANGIO DISSECTION CLINICAL HISTORY: Evaluate pericardial effusion post dissection. COMPARISON STUDY: CTA of the chest June 16, 2016. TECHNIQUE: Unenhanced and arterial phase images of the chest were obtained. Injection of 117 cc of Optiray 320 IV was uneventful. 3-D volume renderings and maximal intensity projections were viewed on an independent 3-D workstation. FINDINGS: There are postsurgical findings consistent with an interval median sternotomy and ascending aortic repair. The graft is intact. There is no evidence for rupture. A residual aortic dissection is noted although size of the true lumen has improved since exam of June 16, 2016. As before, the dissection extends into the proximal brachiocephalic trunk. Visualized portions of the right common carotid artery appear patent. The dissection extends into the left subclavian artery and involves visualized portions of the left axillary and brachial arteries. The distal aspect of the dissection flap is not imaged on this exam. The left common carotid artery is patent. The dissection extends along the course of the descending thoracic aorta with involvement of the superior mesenteric artery and diminished perfusion to the left kidney. There is narrowing at the origin of the celiac axis. These findings are better depicted on the CTA of the abdomen and pelvis. There is a large low-attenuation pericardial effusion. The heart is mildly enlarged. There is a small amount of gas within the epicardial fat which is postprocedural. There are trace bilateral pleural effusions. Associated lower lobe opacities likely reflect atelectasis. There is no pneumothorax. Central airways are patent. There are multiple linear filling defects within bilateral lower lobe pulmonary arteries. In retrospect, these were present on CT of June 16, 2016. IMPRESSION: 1. Large pericardial effusion. 2. Status post interval median sternotomy and ascending aortic repair with graft. Graft intact. Expected postsurgical appearance of the ascending aortic graft. Residual dissection involving the aortic arch, descending thoracic aorta, abdominal aorta, brachiocephalic trunk, left subclavian artery and superior mesenteric artery. Involvement of the abdominal aorta and branch vessels within the abdomen and pelvis is better depicted on the CTA of the abdomen and pelvis. 3. Linear filling defects within several bilateral lower lobe pulmonary arteries consistent with pulmonary emboli. In retrospect, these were present on prior CT of June 16, 2016 and likely reflect chronic pulmonary emboli. 4. Trace bilateral pleural effusions with associated opacities which likely reflect atelectasis. Electronically signed by: Reji Keller M.D. 06/27/2016 1:58 PM Dictated Date/Time: 06/27/2016 1:[address] ANGIO ABD/PELVIS WITH CONTRAST CT DOSE: CLINICAL HISTORY: Chest pain. Aortic dissection. TECHNIQUE: The patient was scanned in a dynamic helical fashion during intravenous administration 117 cc of Optiray 320. MIP imaging was performed. COMPARISON STUDY: 06/16/2016 FINDINGS: Images the lung bases reveal a moderate to large pericardial effusion measuring 29 mm in thickness. There are bibasal airspace opacities, likely atelectatic. No hepatic splenic or pancreatic masses are visualized. No adrenal masses are visualized. No gallbladder abnormalities are visualized. There are foci of diminished enhancement within the left kidney consistent with renal infarction. There is an 11 mm exophytic left renal mass which exceeds water attenuation and is therefore indeterminate. There are no transition zones indicate bowel obstruction. There is a fat-containing left inguinal hernia. There is air within the bladder, likely iatrogenic. The appendix appears normal. There is a dissection flap within the abdominal aorta. 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 The dissection extends into the superior mesenteric artery. The dissection extends into both renal arteries. The dissection flap extends into the right common iliac artery. There is also a dissection flap within the left common femoral artery. IMPRESSION: 1. Abdominal or dissection. The dissection flap extends into the superior mesenteric artery, both renal arteries, the right common iliac artery. There is also a dissection flap in the left common femoral artery 2. 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 Moderate to large pericardial effusion 4. Trace perihepatic fluid. 5. Foci of diminished enhancement within the left kidney consistent with renal infarcts 6. 11 mm indeterminate exophytic left renal nodule which exceeds water attenuation Electronically signed by: Tobi Alexandre M.D. 06/27/2016 1:47 PM Dictated Date/Time: 06/27/2016 1:35 PM Laboratory Results 06/27/16 11:40 Red Blood Count 2.45, Mean Corpuscular Volume 90.6, Mean Corpuscular Hemoglobin 31.0, Mean Corpuscular Hemoglobin Concent 34.2, Mean Platelet Volume 9.8, Neutrophils (%) (Auto) 69.1, Lymphocytes (%) (Auto) 15.1, Monocytes (%) (Auto) 9.7, Eosinophils (%) (Auto) 1.5, Basophils (%) (Auto) 0.2, Neutrophils # (Auto) 11.37, Lymphocytes # (Auto) 2.49, Monocytes # (Auto) 1.59, Eosinophils # (Auto) 0.25, Basophils # (Auto) 0.04 06/27/16 11:40 Test 06/27/16 11:40 06/27/16 11:43 06/27/16 13:45 06/27/16 15:33 White Blood Count 16.47 K/uL (4.8-10.8) Red Blood Count 2.45 M/uL (4.7-6.1) Hemoglobin 7.6 g/dL (14.0-18.0) Hematocrit 22.2 % (42-52) Mean Corpuscular Volume 90.6 fL (80-100) Mean Corpuscular Hemoglobin 31.0 pg (25-34) Mean Corpuscular Hemoglobin Concent 34.2 g/dl (32-36) Platelet Count 357 K/uL (130-400) Mean Platelet Volume 9.8 fL (7.4-10.4) Neutrophils (%) (Auto) 69.1 % Lymphocytes (%) (Auto) 15.1 % Monocytes (%) (Auto) 9.7 % Eosinophils (%) (Auto) 1.5 % Basophils (%) (Auto) 0.2 % Neutrophils # (Auto) 11.37 K/uL (1.4-6.5) Lymphocytes # (Auto) 2.49 K/uL (1.2-3.4) Monocytes # (Auto) 1.59 K/uL (0.11-0.59) Eosinophils # (Auto) 0.25 K/uL (0-0.5) Basophils # (Auto) 0.04 K/uL (0-0.2) RDW Standard Deviation 46.3 fL (36.4-46.3) RDW Coefficient of Variation 14.4 % (11.5-14.5) Immature Granulocyte % (Auto) 4.4 % Immature Granulocyte # (Auto) 0.73 K/uL (0.00-0.02) Anisocytosis PRESENT Prothrombin Time 13.9 SECONDS (9.0-12.0) Prothromb Time International Ratio 1.3 (0.9-1.1) Activated Partial Thromboplast Time 33.2 SECONDS (21.0-31.0) Partial Thromboplastin Ratio 1.3 Est Creatinine Clear Calc Drug Dose 70.7 ml/min Estimated GFR () 53.5 Estimated GFR (Non- 46.1 BUN/Creatinine Ratio 20.8 (10-20) Calcium Level 7.5 mg/dl (8.5-10.1) Magnesium Level 2.6 mg/dl (1.8-2.4) Total Bilirubin 0.6 mg/dl (0.2-1) Direct Bilirubin 0.2 mg/dl (0-0.2) Aspartate Amino Transf (AST/SGOT) 75 U/L (15-37) Alanine Aminotransferase (ALT/SGPT) 116 U/L (12-78) Alkaline Phosphatase 179 U/L (45-117) Total Creatine Kinase 242 U/L (39-308) Creatine Kinase MB 4.5 ng/ml (0.5-3.6) Creatine Kinase MB Ratio 1.9 (0-3.0) Bedside Troponin I 0.120 ng/ml (0-0.045) Total Protein 6.7 gm/dl (6.4-8.2) Albumin 2.7 gm/dl (3.4-5.0) Lipase 127 U/L (73-393) Bedside Hemoglobin 7.8 g/dl (14.0-18.0) Bedside Hematocrit 23 % (42-52) Bedside Sodium 127 mEq/L (135-144) Bedside Potassium 4.7 mEq/L (3.3-5.0) Bedside Chloride 92 mEq/L (101-112) Bedside Total CO2 24 mEq/l (24-31) Anion Gap 16.0 mmol/L (16-25) Bedside Blood Urea Nitrogen 34 mg/dl (7-18) Bedside Creatinine 1.6 mg/dl (0.6-1.3) Bedside Glucose (other) 115 mg/dl (70-99) Bedside Ionized Calcium (Riccardo) 0.99 mmol/l (1.12-1.32) Urine Color YELLOW Urine Appearance CLEAR (CLEAR) Urine pH 5.0 (4.5-7.5) Urine Specific [place] 1.010 (1.000-1.030) Urine Protein NEG (NEG) Urine Glucose (UA) NEG (NEG) Urine Ketones NEG (NEG) Urine Occult Blood NEG (NEG) Urine Nitrite NEG (NEG) Urine Bilirubin NEG (NEG) Urine Urobilinogen NEG (NEG) Urine Leukocyte Esterase NEG (NEG) Laboratory results reviewed by me Medications Administered Medications (Trade) Dose Ordered Sig/Saumya Route Start Time Stop Time Status Last Admin Dose Admin Sodium Chloride (Nss 1000ml) 1,000 ml @ 200 mls/hr Q5H STAT IV 06/27/16 14:19 06/27/16 19:18 06/27/16 14:31 200 MLS/HR ECG Indication: chest pain Rate (beats per minute): 97 Rhythm: sinus rhythm Findings: nonspecific-ST abn, PAC, T-wave inversion (Inferior) Comparison ECG Date: June 16, 2016 Change: When compared to post-op ECG at [place], T-wave inversions are new, ST elevation is similar however there is slight convexity to the ST segment. T-wave inversion and ST segments are new when compared to June 16, 2016. First repeat ECG showed sinus with sinus arrhythmia, 92 beats per minute, inferior T-wave inversion with subtle inferolateral ST elevation. Second repeat ECG showed A flutter with variable block, 104 beats per minute, minimal lateral ST elevation persists, no ectopy. ED Course 1129: The patient was evaluated in room A01. A complete history and physical exam was performed. 1131: I discussed the patient's case with Dr. Luna, reinforcer with [facility]. 1158: I discussed the patient's case with Dr. Boland, reinforcer with [facility]. 1205: Echocardiogram showed normal wall motions, moderate pericardial effusion. 1207: Dr. Luna advised not sending the patient to the sleep lab technician for the moment. Dr. Luna and Dr. Boland would like to do a dissection study if possible because of the patient's pericardial effusion. 1217: I discussed the patient's case with his . 1220: ISTAT reveals mildly elevated troponin, creatinine of 1.6, hemoglobin low at 7.8. 1242: I reevaluated the patient. He is asymptomatic with the A flutter. 1243: I discussed the patient's case with Dr. Keller, radiologist with [facility]. 1336: Dr. Luna does not recommend taking him to the sleep lab technician. 1413: Dr. Boland agreed that the patient should be watched overnight. Dr. Luna will primarily follow the patient. 1418: I discussed the patient's case with Alanna Boone PA-C with [facility]. 1419: Sodium Chloride 1000 ml @ 200 mls/hr IV 1436: Upon reexamination, the patient was resting comfortably. He does not have any complaints. I discussed the test results and treatment plan with him. The patient will be evaluated for further management. Medical Decision Triage Nursing notes reviewed. The patient's presentation and history were concerning for possible acute LA. Etiologies such as cardiac ischemia, aortic dissection, pulmonary embolism, pneumonia, pneumothorax, musculoskeletal, infections, gastrointestinal, as well as others were entertained. The patient presented and had a heart alert initiated prehospital. Upon arrival he was feeling well. She has a complex history. Records were obtained from the [facility] through [employer]. He was evaluated in the Emergency Room promptly by Dr. Luna of cardiology for evaluation of possible acute LA. The patient had some very subtle ECG changes. Multiple ECGs were performed. I did consult with Dr. Boland of [facility] cardiology for assistance with his [facility] cardiology and cardiothoracic information. The patient also had positional changes with his pain. He felt better sitting up. It was felt that a bedside echo would be most appropriate and this was performed by Dr. Luna. The patient has a pericardial effusion but no evidence of wall motion abnormality. He was felt given his recent surgery that a dissection CT scan would be most appropriate rather than going to the catheterization suite as he has minimal symptoms at this time. The patient underwent this dissection study. The patient has a graft in place. There is no obvious leaking. Pericardial effusion present. The patient did have an episode of a flutter. This was relatively rate controlled around 100 bpm without intervention. He did have a slight leukocytosis and impressive anemia on CBC. Urinalysis unremarkable. He had hyponatremia as well as hypocalcemia. The patient did have mild elevation of his cardiac markers and LFTs. Consultation was made with the [facility] hospitalist service. The patient was evaluated in the Emergency Room for further management. The chart was completed utilizing K[employer] voice recognition software. Grammatical errors, random word insertions, pronoun errors, and incomplete sentences are an occasional consequence of this system due to software limitations, ambient noise, and hardware issues. Any formal questions or concerns about the content, text, or information contained within the body of this dictation should be directly addressed to the physician for clarification. Consults Time Called: 1130 Consulting Physician: Dr. Luna reinforcer with [facility] Returned Call: 1131 I discussed the patient's case with Dr. Luna, reinforcer with [facility]. Additional Consults: Time Called: 1156 Consulted Physician: Dr. Boland, reinforcer with [facility] Returned Call: 1158 Additional Comments: I discussed the patient's case with Dr. Boland, reinforcer with [facility]. Time Called: 1240 Consulted Physician: Dr. Keller, radiologist with [facility] Returned Call: 1243 Additional Comments: I discussed the patient's case with Dr. Keller, radiologist with [facility]. Impression Primary Impression: Substernal chest pain Additional Impressions: Pericardial effusion Chronic pulmonary embolism Aortic dissection Elevated troponin Critical Care I have personally spent greater than 30 minutes of critical care time in the direct management of this patient. This includes bedside care, interpretation of diagnostic studies, and testing, discussion with consultants, patient, and family members, and other required patient management activities. This 30 minutes is in excess of all separately billable procedures. Scribe Attestation The scribe's documentation has been prepared under my direction and personally reviewed by me in its entirety. I confirm that the note above accurately reflects all work, treatment, procedures, and medical decision making performed by me. Departure Information Dispostion Being Evaluated By Hospitalist Referrals No Doctor, Assigned (PCP) Forms WORK / SCHOOL INSTRUCTIONS, HOME CARE DOCUMENTATION FORM, IMPORTANT VISIT INFORMATION Patient Instructions [facility] Problem Qualifiers
[2016-06-27] MEDS ORDERED: FUROSEMIDE INJ 20 MG in SYRINGE 0 ML IV ONE (18:00)
[2016-06-27] MEDS: WARFARIN SOD 7.5 MG TAB PO SCH (18:08)
--- NOTE | 2016-06-27 18:16 | History and Physical ---
History & Physical Date & Time of Service: Jun 27, 2016 at 15:12 Chief Complaint: Heart Alert Primary Care Physician: Bradford Chamberlain M.D. History of Present Illness Source: patient, family, clinic records, hospital records Patient seen and examined. 61 year old male with PMHx of Recent Type A Aortic Dissection on 06/16 s/p repair, acute DVT, Hypothyroidism, and h/o tobacco abuse presents to the ED complaining of chest pain. Patient was seen in this ED on for chest pain and LLE weakness. CT revealed Type A aortic dissection and the patient was life flighted to [facility] [place] where he emergently underwent repair. He was discharged to [facility] on 06/22. Since then he has been doing fairly well. He reports he has been having incisional chest pain but otherwise his LLE weakness has been improving. During his stay he developed right calf pain and was diagnosed with an acute DVT. He is currently on a warfarin with a Lovenox bridge. He reports this morning he was shaving when he again developed some substernal chest pain described as burning and pressure. He rates this pain as a 6-7/10. This time the pain was associated with generalized BLLE weakness he states symptoms lasted for approximately 15 minutes and he told staff members. He denies fevers, chills, URI symptoms, SOB, palpitations, nausea, vomiting, diarrhea, dysuria, calf pain and edema. An EKG at [facility] was obtained and there were concerns for STEMI. He received ASA and nitro and was transferred to [facility]. He reports that he is currently pain free. Enroute, EMS called a heart alert. Dr. Luna and Dr. Boland of cardiology saw the patient at bedside and did not believe the subtle ST changes were different than previous or indicative of STEMI. A bedside echo was preformed and showed a moderate pericardial effusion. There was no evidence of cardiac tamponade or wall motion abnormality. It was decided that emergent cath was not indicated at this time. Troponin was 0.12, Hgb is 7.8, Na was 129, INR was 1.3. CT chest showed surgical changes. He received gentle IVF hydration. He is resting comfortably. He will be admitted for further workup and treatment. Past Medical/Surgical History Medical Problems: (1) Aortic dissection Status: Resolved (2) Aortic dissection Permanent Comment: s/p repair Status: Chronic (3) CKD (chronic kidney disease), stage III Status: Chronic (4) DVT (deep venous thrombosis) Status: Resolved (5) DVT (deep venous thrombosis) Status: Chronic (6) Hypertension Status: Chronic (7) Hypothyroidism Status: Chronic (8) Tobacco abuse Status: Chronic Surgical Problems: (1) H/O hernia repair Status: Chronic (2) H/O thyroidectomy Status: Chronic Family History Blood clots Cancer Social History Smoking Status: Former Smoker Alcohol Use: none Marital Status: Housing status: lives with family Occupational Status: employed Immunizations History of Influenza Vaccine: No History of Tetanus Vaccine?: No History of Pneumococcal: No History of Hepatitis B Vaccine: No Allergies Coded Allergies: No Known Allergies (Verified , 06/16/16) Home Medications Scheduled Aluminum/Magnesium/Simeth (Maalox Max Susp), 30 ML PO Q4 Aspirin (Aspirin 81), 81 MG PO DAILY Atorvastatin (Lipitor), 20 MG PO DAILY Docusate Sodium (Docusate Sodium), 100 MG PO BID Enoxaparin (Lovenox), 120 MG SQ Q12H Famotidine (Pepcid), 10 MG PO DAILY Fluticasone Propionate (Nasal) (Flonase Allergy Relief), 2 SPRAYS TONE DAILY Furosemide (Lasix), 40 MG PO DAILY Levothyroxine Sodium (Levothyroxine Sodium), 200 MCG PO DAILY Magnesium Hydroxide (Milk of Magnesia), 30 ML PO DAILY Metoprolol Tartrate (Lopressor) (Lopressor), 25 MG PO BID Multivit/Min/Iron/Fol Ac/Pren ( Vitamin), 1 TAB PO DAILY Nystatin (Nystatin Suspension), 5 ML PO DAILY Potassium Chloride (Micro-K Ext Rel), 10 MEQ PO DAILY Senna/Docusate Sod (Senokot S), 1 TAB PO BID Warfarin Sod (Jantoven), 7.5 MG PO DAILY Scheduled PRN Ondansetron Hcl (Zofran), 4 MG PO Q6 PRN for Nausea Oxycodone Immediate Rel Tab (Roxicodone Ir), 5 MG PO Q6H PRN for Pain Polyethylene Glycol 3350 (Miralax), 17 GM PO DAILY PRN for Constipation Review of Systems See above for pertinent positives & negatives. A total of 10 systems reviewed and were otherwise negative. Physical Exam Vital Signs Date Time Temp Pulse Resp B/P Pulse Ox O2 Delivery O2 Flow Rate FiO2 06/27/16 14:31 105 18 90/67 99 Nasal Cannula 2.0 06/27/16 14:11 102 06/27/16 14:02 92 20 103/68 100 Nasal Cannula 2.0 06/27/16 13:51 96 18 92/71 96 Nasal Cannula 2.0 06/27/16 13:32 92 20 104/79 98 Nasal Cannula 2.0 06/27/16 12:54 94 20 99/65 93 Nasal Cannula 2.0 06/27/16 12:39 106 20 113/74 98 Nasal Cannula 2.0 06/27/16 12:21 80 20 104/69 97 Room Air 06/27/16 12:14 83 20 134/59 99 Nasal Cannula 2.0 06/27/16 12:03 92 06/27/16 11:59 90 18 106/68 97 Nasal Cannula 2.0 06/27/16 11:54 92 20 105/59 97 Nasal Cannula 2.0 06/27/16 11:44 Nasal Cannula 2.0 06/27/16 11:42 95 22 89/60 92 Room Air 06/27/16 11:40 96 Room Air 06/27/16 11:34 94 Room Air 06/27/16 11:31 36.9 92 20 109/68 96 Room Air General Appearance: + pertinent finding (Very pleasant WD/WN 61 year old male lying in bed in NAD with family at bedside ) Head: normocephalic, atraumatic Eyes: PERRL, EOMI, sclerae normal ENT: hearing grossly normal, pharynx normal Neck: supple, no JVD Respiratory/Chest: no respiratory distress, no accessory muscle use, + crackles (trace, bibasilar ), + pertinent finding (well healing incisions left chest and sternum, no signs of infection ) Cardiovascular: regular rate, rhythm, no gallop, no JVD, no murmur, normal peripheral pulses Abdomen/GI: normal bowel sounds, non tender, soft Back: normal inspection, no muscle spasm Extremities/Musculoskelatal: no calf tenderness, normal capillary refill, + pedal edema (+1-2) Neurologic/Psych: alert, oriented x 3, + pertinent finding (no focal deficits noted) Skin: normal color, warm/dry, no rash Lymphatic: no adenopathy Diagnostics Laboratory Results Results Past 24 Hours Test 06/27/16 11:40 06/27/16 11:43 06/27/16 13:45 Range/Units White Blood Count 16.47 4.8-10.8 K/uL Red Blood Count 2.45 4.7-6.1 M/uL Hemoglobin 7.6 14.0-18.0 g/dL Hematocrit 22.2 42-52 % Mean Corpuscular Volume 90.6 80-100 fL Mean Corpuscular Hemoglobin 31.0 25-34 pg Mean Corpuscular Hemoglobin Concent 34.2 32-36 g/dl Platelet Count 357 130-400 K/uL Mean Platelet Volume 9.8 7.4-10.4 fL Neutrophils (%) (Auto) 69.1 % Lymphocytes (%) (Auto) 15.1 % Monocytes (%) (Auto) 9.7 % Eosinophils (%) (Auto) 1.5 % Basophils (%) (Auto) 0.2 % Neutrophils # (Auto) 11.37 1.4-6.5 K/uL Lymphocytes # (Auto) 2.49 1.2-3.4 K/uL Monocytes # (Auto) 1.59 0.11-0.59 K/uL Eosinophils # (Auto) 0.25 0-0.5 K/uL Basophils # (Auto) 0.04 0-0.2 K/uL RDW Standard Deviation 46.3 36.4-46.3 fL RDW Coefficient of Variation 14.4 11.5-14.5 % Immature Granulocyte % (Auto) 4.4 % Immature Granulocyte # (Auto) 0.73 0.00-0.02 K/uL Anisocytosis PRESENT Prothrombin Time 13.9 9.0-12.0 SECONDS Prothromb Time International Ratio 1.3 0.9-1.1 Activated Partial Thromboplast Time 33.2 21.0-31.0 SECONDS Partial Thromboplastin Ratio 1.3 Sodium Level 129 136-145 mmol/L Potassium Level 4.9 3.5-5.1 mmol/L Chloride Level 95 98-107 mmol/L Carbon Dioxide Level 24 21-32 mmol/L Anion Gap 10.0 16.0 16-25 mmol/L Blood Urea Nitrogen 33 7-18 mg/dl Creatinine 1.60 0.60-1.40 mg/dl Est Creatinine Clear Calc Drug Dose 70.7 ml/min Estimated GFR () 53.5 Estimated GFR (Non- 46.1 BUN/Creatinine Ratio 20.8 10-20 Random Glucose 109 70-99 mg/dl Calcium Level 7.5 8.5-10.1 mg/dl Magnesium Level 2.6 1.8-2.4 mg/dl Total Bilirubin 0.6 0.2-1 mg/dl Direct Bilirubin 0.2 0-0.2 mg/dl Aspartate Amino Transf (AST/SGOT) 75 15-37 U/L Alanine Aminotransferase (ALT/SGPT) 116 12-78 U/L Alkaline Phosphatase 179 45-117 U/L Total Creatine Kinase 242 39-308 U/L Creatine Kinase MB 4.5 0.5-3.6 ng/ml Creatine Kinase MB Ratio 1.9 0-3.0 Total Protein 6.7 6.4-8.2 gm/dl Albumin 2.7 3.4-5.0 gm/dl Lipase 127 73-393 U/L Bedside Hemoglobin 7.8 14.0-18.0 g/dl Bedside Hematocrit 23 42-52 % Bedside Sodium 127 135-144 mEq/L Bedside Potassium 4.7 3.3-5.0 mEq/L Bedside Chloride 92 101-112 mEq/L Bedside Total CO2 24 24-31 mEq/l Bedside Blood Urea Nitrogen 34 7-18 mg/dl Bedside Creatinine 1.6 0.6-1.3 mg/dl Bedside Glucose (other) 115 70-99 mg/dl Bedside Ionized Calcium (Riccardo) 0.99 1.12-1.32 mmol/l Urine Color YELLOW Urine Appearance CLEAR CLEAR Urine pH 5.0 4.5-7.5 Urine Specific [place] 1.010 1.000-1.030 Urine Protein NEG NEG Urine Glucose (UA) NEG NEG Urine Ketones NEG NEG Urine Occult Blood NEG NEG Urine Nitrite NEG NEG Urine Bilirubin NEG NEG Urine Urobilinogen NEG NEG Urine Leukocyte Esterase NEG NEG Diagnostic Radiology CTA Per radiologist read: IMPRESSION: 1. Abdominal or dissection. The dissection flap extends into the superior mesenteric artery, both renal arteries, the right common iliac artery. There is also a dissection flap in the left common femoral artery 2. 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 Moderate to large pericardial effusion 4. Trace perihepatic fluid. 5. Foci of diminished enhancement within the left kidney consistent with renal infarcts 6. 11 mm indeterminate exophytic left renal nodule which exceeds water attenuation CT FOR DISSECTION per radiologist read: IMPRESSION: 1. Large pericardial effusion. 2. Status post interval median sternotomy and ascending aortic repair with graft. Graft intact. Expected postsurgical appearance of the ascending aortic graft. Residual dissection involving the aortic arch, descending thoracic aorta, abdominal aorta, brachiocephalic trunk, left subclavian artery and superior mesenteric artery. Involvement of the abdominal aorta and branch vessels within the abdomen and pelvis is better depicted on the CTA of the abdomen and pelvis. 3. Linear filling defects within several bilateral lower lobe pulmonary arteries consistent with pulmonary emboli. In retrospect, these were present on prior CT of June 16, 2016 and likely reflect chronic pulmonary emboli. 4. Trace bilateral pleural effusions with associated opacities which likely reflect atelectasis. CXR Per radiologist read: IMPRESSION: Cardiomegaly post median sternotomy EKG EKG 1 NSR with PACs 97 BPM, Nonspecific ST and T wave changes QTc 467 EKG 2 Atrial Flutter 104 BPM, ST elevations similar to previous EKGs, QTc 405 EKG 3 Sinus Rhythm with sinus arrhythmia, ST elevation similar to previous 92 BPM, QTc 472 Impression Assessment and Plan 61 year old male with complicated recent history of aortic dissection presents to the ED from [facility] complaining of chest pain and BLLE weakness . CHEST PAIN r/o ACS -Admit to tele -Bedside echo shows moderate pericardial effusion, no tamponade, no wall motion abnormalities -Troponin 0.12 -EKG with ST elevation but similar to previous -Seen by Dr. Boland and Dr. Luna -Formal consult placed for Dr. Luna, input appreciated -Serial Tahmina, EKGs -continue Statin, BB, ASA -monitor in tele ACUTE BLOOD LOSS ANEMIA -likely secondary to recent aortic dissection, Hgb was 9 at discharge -will transfuse 2 units PRBCs now -consent on chart -pretreat with Tylenol, Benadryl -Lasix between units -Post transfusion H&H ordered -follow CBC daily ATRIAL FLUTTER -continue BB, anticoagulation -monitor in tele -management per cardiology PERICARDIAL EFFUSION -no sign of tamponade -management per cardiology RIGHT ACUTE DVT -CT chest with chronic PE -continue Coumadin with Lovenox bridge -INR 1.3 today HYPONATREMIA -129 -appears euvolemic on exam -Check serum osm, urine studies -follow PRP GENERALIZED WEAKNESS -likely secondary to acute illness -no focal deficits -continue PT/OT LEUKOCYTOSIS -16K -likely reactive -will follow daily -no indication for Abx at this time CONSTIPATION -likely secondary to narcotic use -Tylenol with codeine ordered for pain, when ACS is r/o consider NSAIDs -continue bowel regimen CKD STAGE 3 WITH ? RENAL INFARCT -Crea 1.6 which is baseline -follow PRP daily H/O RECENT TYPE A AORTIC DISSECTION -s/p repair -stable -management per Cardiology HYPOTHYROIDISM -continue Synthroid DVT PROPHYLAXIS: warfarin with Lovenox bridge CODE STATUS: FULL CODE DISPO:In my clinical judgment this beneficiary meets acute admission criteria, established by [facility], that includes being hospitalized through two midnights. Discharge planning eval Patient seen in collaboration with Dr. Gutiérrez ADDENDUM: I have seen and examined the patient and agree with the assessment and plan as above. Jane Gutiérrez DO (Hospitalist) Level of Care Telemetry Resuscitation Status FULL RESUSCITATION VTE Prophylaxis VTE Risk Assessment Done? Y/N: Yes Risk Level: High Given or contraindicated: Warfarin (Coumadin)
[2016-06-27 18:37] LABS: CKMB/CK RATIO 2.3 (0-3.0)
[2016-06-27] MEDS ORDERED: ACETAMINOPHEN 325 MG TAB PO PRN (19:30)
[2016-06-27] MEDS: METOPROLOL TARTRATE 25 MG TAB PO SCH (20:06)
[2016-06-27] MEDS: DOCUSATE SODIUM 100 MG CAP PO SCH (20:07)
[2016-06-27] MEDS: ENOXAPARIN 120 MG/0.8 ML SYR SQ SCH (20:07)
[2016-06-27] MEDS: DOCUSATE SODIUM/SENNA 50/8.6MG TAB PO SCH (20:07)
[2016-06-27] MEDS: ACETAMINOPHEN/CODEINE 300/30MG TAB PO PRN (20:09)
[2016-06-27] MEDS ORDERED: PNEUMOCOCCAL POLYSACCHARIDES 25 MCG/0.5 ML VIAL/SYR IM. ONE (20:45)
[2016-06-27] MEDS ORDERED: PNEUMOCOCCAL ADMINISTRATION CHARGE ONE (20:45)
[2016-06-27] MEDS ORDERED: INFLUENZA VIRUS QUAD VACCINE 0.5 ML SYR IM. ONE (21:00)
[2016-06-27] MEDS ORDERED: INFLUENZA ADMINISTRATION CHARGE ONE (21:00)
[2016-06-27] MEDS ORDERED: BISACODYL 10 MG SUPP PR PRN (22:30)
[2016-06-27 23:30] LABS: HEMATOCRIT 24.7 % (42-52)
[2016-06-28 00:03] LABS: BUN/CREATININE RATIO 21.2 (10-20); CALCIUM 7.4 mg/dl (8.5-10.1); CKMB/CK RATIO 2.6 (0-3.0); CREATININE 1.6 mg/dl (0.60-1.40); POTASSIUM 4.3 mmol/L (3.5-5.1)
[2016-06-28] MEDS ORDERED: MoRPHine SULFATE 2 MG/ML CARP IV PRN (00:30)
[2016-06-28] MEDS: ACETAMINOPHEN/CODEINE 300/30MG TAB PO PRN ×2 (00:40→20:50)
[2016-06-28 03:31] VITALS: BP 107/82; PULSE 86; TEMP 36.6; O2SAT 96
[2016-06-28] MEDS: LEVOTHYROXINE 200 MCG TAB PO SCH (06:26)
[2016-06-28 06:40] LABS: HEMATOCRIT 24.1 % (42-52); MEAN CELL VOLUME 91.6 fL (80-100); MEAN CORPUSCULAR HEMOGLOBIN 31.9 pg (25-34); MEAN CORPUSCULAR HGB CONC 34.9 g/dl (32-36); MEAN PLATELET VOLUME 9.9 fL (7.4-10.4); PLATELET COUNT 346 K/uL (130-400); RED BLOOD COUNT 2.63 M/uL (4.7-6.1); WHITE BLOOD COUNT 16.06 K/uL (4.8-10.8)
[2016-06-28 06:46] LABS: INR 1.5 (0.9-1.1); PROTHROMBIN TIME (PATIENT) 15.8 SECONDS (9.0-12.0)
[2016-06-28 07:17] LABS: BUN/CREATININE RATIO 19.3 (10-20); CALCIUM 7.8 mg/dl (8.5-10.1); CREATININE 1.7 mg/dl (0.60-1.40); MAGNESIUM 2.6 mg/dl (1.8-2.4); POTASSIUM 4.5 mmol/L (3.5-5.1)
[2016-06-28 07:23] LABS: CHOLESTEROL/HDL RATIO 4.8
[2016-06-28 08:05] VITALS: BP 120/72; PULSE 63; TEMP 36.7; O2SAT 98
[2016-06-28] MEDS: ENOXAPARIN 120 MG/0.8 ML SYR SQ SCH ×2 (08:28→20:45)
[2016-06-28] MEDS: DOCUSATE SODIUM/SENNA 50/8.6MG TAB PO SCH ×2 (08:29→20:44)
[2016-06-28] MEDS: PRENATAL VITAMIN TAB PO SCH (08:29)
[2016-06-28] MEDS: METOPROLOL TARTRATE 25 MG TAB PO SCH ×2 (08:29→20:45)
[2016-06-28] MEDS: DOCUSATE SODIUM 100 MG CAP PO SCH ×2 (08:29→20:44)
[2016-06-28] MEDS: POTASSIUM CHLORIDE 10 MEQ TABCR PO SCH (08:29)
[2016-06-28] MEDS: FUROSEMIDE 40 MG TAB PO SCH (08:30)
[2016-06-28] MEDS: ASPIRIN 81 MG ECTAB PO SCH (08:30)
[2016-06-28] MEDS: FAMOTIDINE 20 MG TAB PO SCH (08:30)
[2016-06-28] MEDS: ATORVASTATIN 20 MG TAB PO SCH (08:30)
[2016-06-28] MEDS: NYSTATIN SUSP 500,000 U/5 ML UDC PO SCH (08:31)
[2016-06-28] MEDS: FLUTICASONE PROPIONATE NA SPR 16 GM BTL NAE SCH (08:31)
[2016-06-28] MEDS: MAGNESIUM HYDROXIDE SUSP 30 ML UDC PO SCH (08:32)
[2016-06-28 11:32] VITALS: BP 132/76; PULSE 66; TEMP 36.5; O2SAT 98
[2016-06-28 15:18] VITALS: BP 125/69; PULSE 89; TEMP 36.8; O2SAT 94
[2016-06-28] MEDS: WARFARIN SOD 7.5 MG TAB PO SCH (16:35)
[2016-06-28] MEDS: ALUMINUM/MAGNESIUM/SIMETH (MAALOX MAX) 30 ML UDC PO PRN (16:35)
--- NOTE | 2016-06-28 17:12 | Progress Note ---
Internal Med Progress Note Date of Service: Jun 28, 2016. Provider Documentation: SUBJECTIVE: Patient is awake/alert and is in no apparent distress. No chest pain/pressure or SOB today. has been able to ambulate in the hallway.Denies any other new change or complaint. OBJECTIVE: Vital Signs-as noted below Examination: General Appearance: Very pleasant WD/WN 61 year old male lying in bed in NAD with family at bedside Head: normocephalic, atraumatic Eyes: PERRL, EOMI, sclerae normal ENT: hearing grossly normal, pharynx normal Neck: supple, no JVD Respiratory/Chest: no respiratory distress, no accessory muscle use, well healing incisions left chest and sternum, no signs of infection Cardiovascular: regular rate, rhythm, no gallop, no JVD, no murmur, normal peripheral pulses Abdomen/GI: normal bowel sounds, non tender, soft Back: normal inspection, no muscle spasm Extremities/Musculoskeletal: no calf tenderness, normal capillary refill, + pedal edema Neurologic/Psych: alert, oriented x 3, No focal deficits noted Skin: normal color, warm/dry, no rash Lymphatic: no adenopathy Lab data as noted below. ASSESSMENT & PLAN: Limited Echo in the setting of possible Heart Alert. 1. Normal LV size with moderate concentric LVH. 2. Normal LV systolic function. LVEF 60-65%. No regional wall motion abnormalities. 3. Grossly normal RV size and function. 4. No significant aortic stenosis or regurgitation. 5. Aortic root not well visualized. 6. Moderate pericardial effusion. No apparent tamponade. 7. Normal IVC suggestive of normal RA pressure. 8. No prior studies for comparison. CT FOR DISSECTION per radiologist read: IMPRESSION: 1. Large pericardial effusion. 2. Status post interval median sternotomy and ascending aortic repair with graft. Graft intact. Expected postsurgical appearance of the ascending aortic graft. Residual dissection involving the aortic arch, descending thoracic aorta , abdominal aorta, brachiocephalic trunk, left subclavian artery and superior mesenteric artery. Involvement of the abdominal aorta and branch vessels within the abdomen and pelvis is better depicted on the CTA of the abdomen and pelvis. 3. Linear filling defects within several bilateral lower lobe pulmonary arteries consistent with pulmonary emboli. In retrospect, these were present on prior CT of June 16, 2016 and likely reflect chronic pulmonary emboli. 4. Trace bilateral pleural effusions with associated opacities which likely reflect atelectasis. CXR Per radiologist read: IMPRESSION: Cardiomegaly post median sternotomy Chest Pain R/O ACS: Clinically & hemodynamically remains stable. -Reviewed Echo findings -Troponin trend is ).103 --> 0.094 --> 0.076 -EKG with ST elevation but similar to previous -Seen by Dr. Boland and Dr. Luna & Dr. Luna has been following for Cardiology -Continue Statin, BB, ASA Acute Blood Loss Anemia: Likely secondary to recent aortic dissection, Hgb was 9 at discharge -Transfused 2 units PRBCs -Following CBC closely Leukocytosis: Likely reactive -will follow daily -no indication for Abx at this time Atrial Flutter: HR is stable now. -Continue BB, anticoagulation Pericardial Effusion: Post-surgical. No sign of tamponade -Management per cardiology Hyponatremia: Sodium is 130 today.Appears euvolemic on exam -Low Serum osmolality -follow PRP -lasxi X one dose given Right Acute DVT: CT chest with chronic PE -Continue Coumadin with Lovenox bridge -INR 1.5 today Constipation: Likely secondary to narcotic use -Tylenol with codeine ordered for pain, when ACS is r/o consider NSAIDs -continue bowel regimen CKD Stage III With Renal Infarct: Crea 1.6 which is baseline -follow PRP daily -Avoid any Nephrotoxin History Type Type A Dissection Repair: Stable. -Management per Cardiology Hypothyroidism: Continue Synthroid DVT Prophylaxis: Warfarin with Lovenox bridge Code Status: FULL CODE Disposition: Discharge once is clinically stable. Vital Signs: Date Time Temp Pulse Resp B/P Pulse Ox O2 Delivery O2 Flow Rate FiO2 06/28/16 16:39 Room Air 06/28/16 15:18 36.8 89 20 125/69 94 Room Air 06/28/16 12:02 Room Air 06/28/16 11:32 36.5 66 16 132/76 98 06/28/16 08:05 Room Air 06/28/16 08:05 36.7 63 16 120/72 98 06/28/16 04:00 Nasal Cannula 1.0 06/28/16 03:31 36.6 86 18 107/82 96 Nasal Cannula 1.0 06/27/16 23:59 Nasal Cannula 1.0 06/27/16 23:57 37.0 92 18 133/75 100 Nasal Cannula 1.0 06/27/16 22:42 37.0 85 18 118/68 96 1.0 06/27/16 21:47 36.9 75 18 105/57 95 1.0 06/27/16 20:47 36.5 85 18 125/71 96 1.0 06/27/16 20:18 36.8 87 18 126/72 99 2.0 06/27/16 20:00 Nasal Cannula 2.0 06/27/16 19:55 36.9 86 18 104/81 99 2.0 06/27/16 18:32 36.9 91 18 107/69 98 2.0 06/27/16 18:02 37.0 94 18 143/74 96 2.0 06/27/16 17:41 36.9 87 18 118/69 99 2.0 06/27/16 17:26 36.9 87 18 115/67 98 2.0 Lab Results: Results Past 24 Hours Test 06/27/16 17:46 06/27/16 21:22 06/27/16 23:25 06/28/16 00:01 Range/Units Total Creatine Kinase 226 202 39-308 U/L Creatine Kinase MB 5.3 5.2 0.5-3.6 ng/ml Creatine Kinase MB Ratio 2.3 2.6 0-3.0 Troponin I 0.103 0.094 0-0.045 ng/ml Hepatitis C Antibody Screen NEG NEG Osmolality 277 280-300 mOsm/kg Hemoglobin 8.4 14.0-18.0 g/dL Hematocrit 24.7 42-52 % Sodium Level 131 136-145 mmol/L Potassium Level 4.3 3.5-5.1 mmol/L Chloride Level 97 98-107 mmol/L Carbon Dioxide Level 23 21-32 mmol/L Anion Gap 11.0 3-11 mmol/L Blood Urea Nitrogen 34 7-18 mg/dl Creatinine 1.60 0.60-1.40 mg/dl Est Creatinine Clear Calc Drug Dose 69.1 ml/min Estimated GFR () 53.5 Estimated GFR (Non- 46.1 BUN/Creatinine Ratio 21.2 10-20 Random Glucose 104 70-99 mg/dl Calcium Level 7.4 8.5-10.1 mg/dl Urine Random Creatinine 54.0 mg/dl Urine Random Sodium 13 mEq/L Test 06/28/16 06:15 06/28/16 13:28 Range/Units White Blood Count 16.06 4.8-10.8 K/uL Red Blood Count 2.63 4.7-6.1 M/uL Hemoglobin 8.4 14.0-18.0 g/dL Hematocrit 24.1 42-52 % Mean Corpuscular Volume 91.6 80-100 fL Mean Corpuscular Hemoglobin 31.9 25-34 pg Mean Corpuscular Hemoglobin Concent 34.9 32-36 g/dl RDW Standard Deviation 48.1 36.4-46.3 fL RDW Coefficient of Variation 14.8 11.5-14.5 % Platelet Count 346 130-400 K/uL Mean Platelet Volume 9.9 7.4-10.4 fL Nucleated RBC Absolute Count (auto) 0.04 0-0 K/uL Nucleated Red Blood Cells % 0.2 % Prothrombin Time 15.8 9.0-12.0 SECONDS Prothromb Time International Ratio 1.5 0.9-1.1 Sodium Level 130 136-145 mmol/L Potassium Level 4.5 3.5-5.1 mmol/L Chloride Level 97 98-107 mmol/L Carbon Dioxide Level 23 21-32 mmol/L Anion Gap 10.0 3-11 mmol/L Blood Urea Nitrogen 33 7-18 mg/dl Creatinine 1.70 0.60-1.40 mg/dl Est Creatinine Clear Calc Drug Dose 65.7 ml/min Estimated GFR () 49.7 Estimated GFR (Non- 42.9 BUN/Creatinine Ratio 19.3 10-20 Random Glucose 101 70-99 mg/dl Calcium Level 7.8 8.5-10.1 mg/dl Magnesium Level 2.6 1.8-2.4 mg/dl Total Bilirubin 0.7 0.2-1 mg/dl Direct Bilirubin 0.3 0-0.2 mg/dl Aspartate Amino Transf (AST/SGOT) 55 15-37 U/L Alanine Aminotransferase (ALT/SGPT) 110 12-78 U/L Alkaline Phosphatase 187 45-117 U/L Total Protein 6.5 6.4-8.2 gm/dl Albumin 2.8 3.4-5.0 gm/dl Triglycerides Level 121 0-150 mg/dl Cholesterol Level 125 0-200 mg/dl HDL Cholesterol 26 mg/dl LDL Cholesterol, Calculated 75 mg/dl VLDL Cholesterol, Calculated 24 mg/dl Cholesterol/HDL Ratio 4.8 Troponin I 0.076 0-0.045 ng/ml
[2016-06-28 20:09] VITALS: BP 115/63; PULSE 85; TEMP 37; O2SAT 96
[2016-06-28 23:40] VITALS: BP 96/68; PULSE 85; TEMP 36.8; O2SAT 94
--- NOTE | 2016-06-28 23:45 | Cardiology Follow-Up ---
Subjective Subjective Date of Service: Jun 28, 2016. Pt evaluation today including: conversation w/ patient, conversation w/ family , physical exam, chart review, lab review, review of studies, review of inpatient medication list Additional Details: Feeling better than yesterday. Chest pain unchanged from symptoms has had since surgery. Legs feel stronger Able to walk the halls with PT telemetry reviewed - no events Problem List Medical Problems: (1) Chronic pulmonary embolism Status: Acute (2) Elevated troponin Status: Acute (3) Substernal chest pain Status: Acute Review of Systems Constitutional: No fever Respiratory: + cough, No shortness of breath Cardiac: + chest pain, + edema Abdomen: No nausea, No pain Male : No dysuria Neurologic: No memory loss Psychiatric: No depression symptoms Heme: No abnormal bleeding/bruising Endo: No fatigue Skin: No rash Objective Vital Signs Last Vital Signs Documentation Date Time Temp Pulse Resp B/P Pulse Ox O2 Delivery O2 Flow Rate FiO2 06/28/16 20:09 37.0 85 18 115/63 96 Room Air 06/28/16 04:00 1.0 Physical Exam: General Appearance: WD/WN Neck: supple, no JVD Respiratory/Chest: lungs clear Cardiovascular: regular rate, rhythm, no murmur Abdomen: non tender, soft Extremities: + pertinent finding Neurologic/Psychiatric: alert, normal mood/affect Skin: normal color, warm/dry, no rash Assessment and Plan 1. Chest Pain/subtle ST changes -- post sternotomy pain, symptoms not secondary to ACS 2. Moderate pleural effusion -- not unexpected finding post cardiac surgery, no evidence of tamponade 3. Post type A aortic dissection repair/aortic arch reconstruction/aortic valve resuspension -- aortic valve functioning appropriately 4. Residual abdominal aortic dissection -- non-flow limiting, good distal pulses 5. Recent VTE on anticoagulation 6. Periop Atrial flutter -- on AV leti agents, antioagulation as above 7. Lower extremity edema 8. Anemia -- appropriate response post transfusion Overall patient stable following complex type A dissection repair 2 weeks ago. No active cardiac conditions at this time. Will need scheduled follow-up with CT surgery Continue ASA/Statin/BBlocker Continue current anticoagulation Continue lasix From a cardiac standpoint OK for discharge when safe from medical standpoint Medications: Current Inpatient Medications Medications (Trade) Dose Ordered Sig/Saumya Route Start Time Stop Time Status Last Admin Dose Admin Acetaminophen (Tylenol Tab) 650 mg Q4H PRN PO 06/27/16 19:30 07/27/16 19:29 06/28/16 14:04 650 MG Ondansetron HCl (Zofran Inj) 4 mg Q6H PRN IV 06/27/16 15:30 07/27/16 15:29 Nitroglycerin (Nitrostat Tab) 0.4 mg UD PRN SL 06/27/16 15:30 07/27/16 15:29 Al Hydrox/Mg Hydrox/Simethicone (Maalox Max Susp) 30 ml Q4 PRN PO 06/27/16 15:45 07/27/16 15:44 06/28/16 16:35 30 ML Aspirin (Ecotrin Tab) 81 mg DAILY PO 06/28/16 09:00 07/28/16 08:59 06/28/16 08:30 81 MG Atorvastatin Calcium (Lipitor Tab) 20 mg DAILY PO 06/28/16 09:00 07/28/16 08:59 06/28/16 08:30 20 MG Docusate Sodium (coLACE CAP) 100 mg BID PO 06/27/16 21:00 07/27/16 20:59 06/28/16 20:44 100 MG Enoxaparin Sodium (Lovenox Inj) 120 mg Q12 SQ 06/27/16 21:00 07/27/16 20:59 06/28/16 20:45 120 MG Famotidine (Pepcid Tab) 10 mg DAILY PO 06/28/16 09:00 07/28/16 08:59 06/28/16 08:30 10 MG Fluticasone Propionate (Flonase Nasal [place]) 2 sprays DAILY TONE 06/28/16 09:00 07/28/16 08:59 06/28/16 08:31 2 SPRAYS Furosemide (Lasix Tab) 40 mg DAILY PO 06/28/16 09:00 07/28/16 08:59 06/28/16 08:30 40 MG Levothyroxine Sodium (Synthroid Tab) 200 mcg DAILYBB PO 06/28/16 06:00 07/28/16 06:59 06/28/16 06:26 200 MCG Magnesium Hydroxide (Milk Of Magnesia Susp) 30 ml DAILY PO 06/28/16 09:00 07/28/16 08:59 Metoprolol Tartrate (Lopressor Tab) 25 mg BID PO 06/27/16 21:00 07/27/16 20:59 06/28/16 20:45 25 MG Prenat Multivit/ Square Shear Operator/Iron/Folic Ac ( Vitamin Tab) 1 tab DAILY PO 06/28/16 09:00 07/28/16 08:59 06/28/16 08:29 1 TAB Nystatin (Mycostatin Susp) 5 ml DAILY PO 06/28/16 09:00 07/08/16 08:59 06/28/16 08:31 5 ML Ondansetron HCl (Zofran Tab) 4 mg Q6 PRN PO 06/27/16 15:45 07/27/16 15:44 06/28/16 08:29 4 MG Potassium Chloride (Klor-Con M10) 10 meq DAILY PO 06/28/16 09:00 07/28/16 08:59 06/28/16 08:29 10 MEQ Senna/Docusate Sodium (Senokot S Tab) 1 tab BID PO 06/27/16 21:00 07/27/16 20:59 06/28/16 20:44 1 TAB Warfarin Sodium (Coumadin Tab) 7.5 mg DAILY@1600 PO 06/27/16 18:00 07/27/16 17:59 06/28/16 16:35 7.5 MG Polyethylene (Miralax Powder Packet) 17 gm DAILY PRN PO 06/27/16 15:45 07/27/16 15:44 Acetaminophen/ Codeine Phosphate (Tylenol w/ Codeine #3 Tab) 1 tab Q4H PRN PO 06/27/16 16:15 07/27/16 16:14 06/28/16 20:50 1 TAB Bisacodyl (Dulcolax Supp) 10 mg DAILY PRN [place] 06/27/16 22:30 07/27/16 22:29 Morphine Sulfate (MoRPHine SULFATE INJ) 1 mg Q4 PRN IV 06/28/16 00:30 07/12/16 00:29 Lab Results: 06/28/16 06:15 06/28/16 06:15 Test 06/28/16 00:01 06/28/16 06:15 06/28/16 13:28 Urine Random Creatinine 54.0 mg/dl Urine Random Sodium 13 mEq/L Red Blood Count 2.63 M/uL (4.7-6.1) Mean Corpuscular Volume 91.6 fL (80-100) Mean Corpuscular Hemoglobin 31.9 pg (25-34) Mean Corpuscular Hemoglobin Concent 34.9 g/dl (32-36) RDW Standard Deviation 48.1 fL (36.4-46.3) RDW Coefficient of Variation 14.8 % (11.5-14.5) Mean Platelet Volume 9.9 fL (7.4-10.4) Nucleated RBC Absolute Count (auto) 0.04 K/uL (0-0) Nucleated Red Blood Cells % 0.2 % Prothrombin Time 15.8 SECONDS (9.0-12.0) Prothromb Time International Ratio 1.5 (0.9-1.1) Anion Gap 10.0 mmol/L (3-11) Est Creatinine Clear Calc Drug Dose 65.7 ml/min Estimated GFR () 49.7 Estimated GFR (Non- 42.9 BUN/Creatinine Ratio 19.3 (10-20) Calcium Level 7.8 mg/dl (8.5-10.1) Magnesium Level 2.6 mg/dl (1.8-2.4) Total Bilirubin 0.7 mg/dl (0.2-1) Direct Bilirubin 0.3 mg/dl (0-0.2) Aspartate Amino Transf (AST/SGOT) 55 U/L (15-37) Alanine Aminotransferase (ALT/SGPT) 110 U/L (12-78) Alkaline Phosphatase 187 U/L (45-117) Total Protein 6.5 gm/dl (6.4-8.2) Albumin 2.8 gm/dl (3.4-5.0) Triglycerides Level 121 mg/dl (0-150) Cholesterol Level 125 mg/dl (0-200) HDL Cholesterol 26 mg/dl LDL Cholesterol, Calculated 75 mg/dl VLDL Cholesterol, Calculated 24 mg/dl Cholesterol/HDL Ratio 4.8 Troponin I 0.076 ng/ml (0-0.045)
[2016-06-29 01:30] VITALS: BP 107/51; PULSE 118; O2SAT 94
[2016-06-29] MEDS: ACETAMINOPHEN/CODEINE 300/30MG TAB PO PRN (01:35)
[2016-06-29] MEDS ORDERED: METOPROLOL TARTRATE 1 MG/ML VIAL IV PRN (02:00)
[2016-06-29] MEDS: ALUMINUM/MAGNESIUM/SIMETH (MAALOX MAX) 30 ML UDC PO PRN (02:04)
[2016-06-29 03:04] VITALS: BP 121/51; PULSE 61; TEMP 36.7; O2SAT 95
[2016-06-29] MEDS: LEVOTHYROXINE 200 MCG TAB PO SCH (05:12)
[2016-06-29 06:04] LABS: BASO % 0.2 %; BASO ABS # 0.03 K/uL (0-0.2); EOS % 1.4 %; HEMATOCRIT 26.4 % (42-52); IG% 2.3 %; LYMPH % 15.9 %; LYMPH ABS # 2.18 K/uL (1.2-3.4); MEAN CORPUSCULAR HEMOGLOBIN 31.3 pg (25-34); MEAN CORPUSCULAR HGB CONC 33.7 g/dl (32-36); MEAN PLATELET VOLUME 9.6 fL (7.4-10.4); MONO % 6.7 %; NEUT % 73.5 %; PLATELET COUNT 347 K/uL (130-400); RED BLOOD COUNT 2.84 M/uL (4.7-6.1); WHITE BLOOD COUNT 13.68 K/uL (4.8-10.8)
[2016-06-29 06:24] LABS: PROTHROMBIN TIME (PATIENT) 22.4 SECONDS (9.0-12.0)
[2016-06-29 06:33] LABS: BUN/CREATININE RATIO 18.8 (10-20); CALCIUM 7.9 mg/dl (8.5-10.1); CREATININE 1.6 mg/dl (0.60-1.40); POTASSIUM 4.3 mmol/L (3.5-5.1)
[2016-06-29 06:50] LABS: COMPLETE YES
[2016-06-29] MEDS: PRENATAL VITAMIN TAB PO SCH (07:56)
[2016-06-29] MEDS: ENOXAPARIN 120 MG/0.8 ML SYR SQ SCH (07:56)
[2016-06-29] MEDS: DOCUSATE SODIUM/SENNA 50/8.6MG TAB PO SCH (07:56)
[2016-06-29] MEDS: ASPIRIN 81 MG ECTAB PO SCH (07:57)
[2016-06-29] MEDS: FAMOTIDINE 20 MG TAB PO SCH (07:57)
[2016-06-29] MEDS: POTASSIUM CHLORIDE 10 MEQ TABCR PO SCH (07:57)
[2016-06-29] MEDS: DOCUSATE SODIUM 100 MG CAP PO SCH (07:57)
[2016-06-29] MEDS: FUROSEMIDE 40 MG TAB PO SCH (07:57)
[2016-06-29] MEDS: METOPROLOL TARTRATE 25 MG TAB PO SCH (07:57)
[2016-06-29] MEDS: ATORVASTATIN 20 MG TAB PO SCH (07:58)
[2016-06-29] MEDS: NYSTATIN SUSP 500,000 U/5 ML UDC PO SCH (07:58)
[2016-06-29] MEDS: MAGNESIUM HYDROXIDE SUSP 30 ML UDC PO SCH (07:58)
[2016-06-29 08:02] VITALS: BP 132/75; PULSE 83; TEMP 36.7; O2SAT 96
[2016-06-29] MEDS ORDERED: IRON SUCROSE INJ 100 MG in SODIUM CHLORIDE 0.9% 100ML 100 ML IV SCH ×2 (08:30→10:00)
[2016-06-29] MEDS: FLUTICASONE PROPIONATE NA SPR 16 GM BTL NAE SCH (09:00)
[2016-06-29 12:00] VITALS: BP 100/65; PULSE 78; TEMP 36.8; O2SAT 99
--- NOTE | 2016-06-29 12:52 | Progress Note ---
Internal Med Progress Note Date of Service: Jun 29, 2016. Provider Documentation: SUBJECTIVE: Patient is awake/alert and is in no apparent distress. No chest pain/pressure or SOB today. has been able to ambulate in the hallway.Slept comfortably last night.Denies any other new change or complaint. OBJECTIVE: Vital Signs-as noted below Examination: General Appearance: Very pleasant WD/WN 61 year old male lying in bed in NAD with family at bedside Head: normocephalic, atraumatic Eyes: PERRL, EOMI, sclerae normal ENT: hearing grossly normal, pharynx normal Neck: supple, no JVD Respiratory/Chest: no respiratory distress, no accessory muscle use, well healing incisions left chest and sternum, no signs of infection Cardiovascular: regular rate, rhythm, no gallop, no JVD, no murmur, normal peripheral pulses Abdomen/GI: normal bowel sounds, non tender, soft Back: normal inspection, no muscle spasm Extremities/Musculoskeletal: no calf tenderness, normal capillary refill, + pedal edema Neurologic/Psych: alert, oriented x 3, No focal deficits noted Skin: normal color, warm/dry, no rash Lymphatic: no adenopathy Lab data as noted below. ASSESSMENT & PLAN: Limited Echo in the setting of possible Heart Alert. 1. Normal LV size with moderate concentric LVH. 2. Normal LV systolic function. LVEF 60-65%. No regional wall motion abnormalities. 3. Grossly normal RV size and function. 4. No significant aortic stenosis or regurgitation. 5. Aortic root not well visualized. 6. Moderate pericardial effusion. No apparent tamponade. 7. Normal IVC suggestive of normal RA pressure. 8. No prior studies for comparison. CT FOR DISSECTION per radiologist read: IMPRESSION: 1. Large pericardial effusion. 2. Status post interval median sternotomy and ascending aortic repair with graft. Graft intact. Expected postsurgical appearance of the ascending aortic graft. Residual dissection involving the aortic arch, descending thoracic aorta , abdominal aorta, brachiocephalic trunk, left subclavian artery and superior mesenteric artery. Involvement of the abdominal aorta and branch vessels within the abdomen and pelvis is better depicted on the CTA of the abdomen and pelvis. 3. Linear filling defects within several bilateral lower lobe pulmonary arteries consistent with pulmonary emboli. In retrospect, these were present on prior CT of June 16, 2016 and likely reflect chronic pulmonary emboli. 4. Trace bilateral pleural effusions with associated opacities which likely reflect atelectasis. CXR Per radiologist read: IMPRESSION: Cardiomegaly post median sternotomy Chest Pain R/O ACS: Clinically & hemodynamically remains stable. -Reviewed Echo findings -Troponin trend is ).103 --> 0.094 --> 0.076--> 0.052. -EKG with ST elevation but similar to previous -Seen by Dr. Boland and Dr. Luna & Dr. Luna has been following for Cardiology -Continue Statin, BB, ASA Acute Blood Loss Anemia: Likely secondary to recent aortic dissection, Hgb was 9 at discharge -Transfused 2 units PRBCs -Following CBC closely Leukocytosis: Likely reactive -will follow daily -no indication for Abx at this time Atrial Flutter: HR is stable now. -Continue BB, anticoagulation Pericardial Effusion: Post-surgical. No sign of tamponade -Management per cardiology Hyponatremia: Sodium is 133 today.Appears euvolemic on exam -Low Serum osmolality -follow PRP -lasxi X one dose given Right Acute DVT: CT chest with chronic PE -Continue Coumadin with Lovenox bridge -INR 12.0 today Constipation: Likely secondary to narcotic use -Tylenol with codeine ordered for pain, when ACS is r/o consider NSAIDs -continue bowel regimen CKD Stage III With Renal Infarct: Crea 1.6 which is baseline -follow PRP daily -Avoid any Nephrotoxin History Type Type A Dissection Repair: Stable. -Management per Cardiology Hypothyroidism: Continue Synthroid DVT Prophylaxis: Warfarin Code Status: FULL CODE Disposition: Discharge home later today. Has been cleared by Cardiology. Follow up with PCP within one week after discharge. Follow up with Cardio-thoracic as per the scheduled follow up plan. Vital Signs: Date Time Temp Pulse Resp B/P Pulse Ox O2 Delivery O2 Flow Rate FiO2 06/29/16 12:02 Room Air 06/29/16 12:00 36.8 78 20 100/65 99 Room Air 06/29/16 08:05 Room Air 06/29/16 08:02 36.7 83 17 132/75 96 Room Air 06/29/16 04:00 Room Air 06/29/16 03:27 125 06/29/16 03:04 36.7 61 18 121/51 95 Room Air 06/29/16 01:30 118 20 107/51 94 Ambu-Bag 06/28/16 23:59 Room Air 06/28/16 23:40 36.8 85 18 96/68 94 Room Air 06/28/16 20:09 37.0 85 18 115/63 96 Room Air 06/28/16 20:00 Room Air 06/28/16 16:39 Room Air 06/28/16 15:18 36.8 89 20 125/69 94 Room Air Lab Results: Results Past 24 Hours Test 06/29/16 05:45 Range/Units White Blood Count 13.68 4.8-10.8 K/uL Red Blood Count 2.84 4.7-6.1 M/uL Hemoglobin 8.9 14.0-18.0 g/dL Hematocrit 26.4 42-52 % Mean Corpuscular Volume 93.0 80-100 fL Mean Corpuscular Hemoglobin 31.3 25-34 pg Mean Corpuscular Hemoglobin Concent 33.7 32-36 g/dl Platelet Count 347 130-400 K/uL Mean Platelet Volume 9.6 7.4-10.4 fL Neutrophils (%) (Auto) 73.5 % Lymphocytes (%) (Auto) 15.9 % Monocytes (%) (Auto) 6.7 % Eosinophils (%) (Auto) 1.4 % Basophils (%) (Auto) 0.2 % Neutrophils # (Auto) 10.06 1.4-6.5 K/uL Lymphocytes # (Auto) 2.18 1.2-3.4 K/uL Monocytes # (Auto) 0.91 0.11-0.59 K/uL Eosinophils # (Auto) 0.19 0-0.5 K/uL Basophils # (Auto) 0.03 0-0.2 K/uL RDW Standard Deviation 49.3 36.4-46.3 fL RDW Coefficient of Variation 14.8 11.5-14.5 % Immature Granulocyte % (Auto) 2.3 % Immature Granulocyte # (Auto) 0.31 0.00-0.02 K/uL Red Blood Cell Morphology Unremarkable Prothrombin Time 22.4 9.0-12.0 SECONDS Prothromb Time International Ratio 2.0 0.9-1.1 Sodium Level 133 136-145 mmol/L Potassium Level 4.3 3.5-5.1 mmol/L Chloride Level 98 98-107 mmol/L Carbon Dioxide Level 25 21-32 mmol/L Anion Gap 10.0 3-11 mmol/L Blood Urea Nitrogen 30 7-18 mg/dl Creatinine 1.60 0.60-1.40 mg/dl Est Creatinine Clear Calc Drug Dose 69.8 ml/min Estimated GFR () 53.5 Estimated GFR (Non- 46.1 BUN/Creatinine Ratio 18.8 10-20 Random Glucose 117 70-99 mg/dl Calcium Level 7.9 8.5-10.1 mg/dl Iron Level 41 35-175 mcg/dl Total Iron Binding Capacity 285 250-450 mcg/dl Troponin I 0.052 0-0.045 ng/ml
--- NOTE | 2016-06-29 15:15 | Discharge Instructions ---
Discharge Instructions Admission Reason for Admission: Heart Alert Discharge Discharge Diagnosis / Problem: Chest Pain (Resolved) Discharge Goals Goal(s): Decrease discomfort, Improve function, Increase independence, Improve disease control, Improve nutritional status, Learn about illness, Diagnostic testing, Therapeutic intervention Activity Recommendations Activity Limitations: resume your previous activity (As tolerated.) Lifting Limitations: no more than 5 pounds Exercise/Sports Limitations: as tolerated May Resume Sexual Activity: when tolerated Shower/Bathe: no limitations Driving or Machine Use: no limitations (As tolerated.) . Instructions / Follow-Up Instructions / Follow-Up Follow up with PCP within one week after discharge. Follow up with Cardio-thoracic as per the scheduled follow up plan. Follow up with [facility]madin Clinic in 2-3 days for PT/INR check. Current Hospital Diet Patient's current hospital diet: AHA Diet (Heart Healthy), Renal Diet Discharge Diet Recommended Diet: AHA Diet (Heart Healthy), Renal Diet Fluid Restriction: 1800 ml (7 cups) Pending Studies Studies pending at discharge: no Laboratory Results Lipid Panel Test 06/28/16 06:15 Range/Units Triglycerides Level 121 0-150 mg/dl Cholesterol Level 125 0-200 mg/dl HDL Cholesterol 26 mg/dl Cholesterol/HDL Ratio 4.8 LDL Cholesterol, Calculated 75 mg/dl Medical Emergencies . Who to Call and When: Medical Emergencies: If at any time you feel your situation is an emergency, please call 911 immediately. . Non-Emergent Contact Non-Emergency issues call your: Primary Care Provider . . "Provider Documentation" section prepared by Jairo Hollingsworth. VTE Core Measure Inpt VTE Proph given/why not?: Enoxaparin (Lovenox)SQ, Warfarin (Coumadin)
--- NOTE | 2016-06-29 15:19 | Discharge Summary ---
Discharge Summary Admission Date: Jun 27, 2016 at 15:30 Discharge Date: Jun 29, 2016 Discharge Disposition: Home Principal Diagnosis: Chest pain Elevated Troponin Acute Blood Loss Anemia Hyponatremia Pericardial Effusion (Post-surgical) Secondary Diagnoses/Problems: S/P Type A Aortic Dissection Repair CKD Stage III Right Acute DVT Atrial Flutter Chronic Constipation Hypothyroidism Procedures: Echocardiogram CT Dissection Study Chest x-Ray Vaccinations: NONE Consultations: Cardiology Medication Reconciliation Continued Medications: Aluminum/Magnesium/Simeth (Maalox Max Susp) Susp 30 ML PO Q4 Aspirin (Aspirin 81) 81 Mg Tab 81 MG PO DAILY Atorvastatin (Lipitor) 20 Mg Tab 20 MG PO DAILY, TAB Docusate Sodium (Docusate Sodium) 100 Mg Cap 100 MG PO BID for 7 Days, #14 CAP Enoxaparin (Lovenox) 120 Mg/0.8 Ml Inj 120 MG SQ Q12H, SYR Famotidine (Pepcid) 20 Mg Tab 10 MG PO DAILY, TAB Fluticasone Propionate (Nasal) (Flonase Allergy Relief) 50 Mcg/Act Spr 2 SPRAYS TONE DAILY Furosemide (Lasix) 40 Mg Tab 40 MG PO DAILY, TAB Levothyroxine Sodium (Levothyroxine Sodium) 200 Mcg Tab 200 MCG PO DAILY Magnesium Hydroxide (Milk of Magnesia) 30 Ml Susp 30 ML PO DAILY Metoprolol Tartrate (Lopressor) (Lopressor) 25 Mg Tab 25 MG PO BID, TAB Multivit/Min/Iron/Fol Ac/Pren ( Vitamin) Tab 1 TAB PO DAILY, TAB Nystatin (Nystatin Suspension) 1 Ml Susp 5 ML PO DAILY swish and swallow Ondansetron Hcl (Zofran) 4 Mg Tab 4 MG PO Q6 PRN for Nausea, TAB Oxycodone Immediate Rel Tab (Roxicodone Ir) 5 Mg Tab 5 MG PO Q6H PRN for Pain, TAB Polyethylene Glycol 3350 (Miralax) 1 Pow Pow 17 GM PO DAILY PRN for Constipation, #255 GM Potassium Chloride (Micro-K Ext Rel) 10 Meq Capcr 10 MEQ PO DAILY, CAP Senna/Docusate Sod (Senokot S) 1 Tab Tab 1 TAB PO BID, TAB Warfarin Sod (Jantoven) 7.5 Mg Tab 7.5 MG PO DAILY, TAB Admission Information HPI (per Admitting provider): Patient seen and examined. 61 year old male with PMHx of Recent Type A Aortic Dissection on 06/16 s/p repair, acute DVT, Hypothyroidism, and h/o tobacco abuse presents to the ED complaining of chest pain. Patient was seen in this ED on for chest pain and LLE weakness. CT revealed Type A aortic dissection and the patient was life flighted to [facility] where he emergently underwent repair. He was discharged to [facility] on 06/22. Since then he has been doing fairly well. He reports he has been having incisional chest pain but otherwise his LLE weakness has been improving. During his stay he developed right calf pain and was diagnosed with an acute DVT. He is currently on a warfarin with a Lovenox bridge. He reports this morning he was shaving when he again developed some substernal chest pain described as burning and pressure. He rates this pain as a 6-7/10. This time the pain was associated with generalized BLLE weakness he states symptoms lasted for approximately 15 minutes and he told staff members. He denies fevers, chills, URI symptoms, SOB, palpitations, nausea, vomiting, diarrhea, dysuria, calf pain and edema. An EKG at [facility] was obtained and there were concerns for STEMI. He received ASA and nitro and was transferred to [facility]. He reports that he is currently pain free. Enroute, EMS called a heart alert. Dr. Luna and Dr. Boland of cardiology saw the patient at bedside and did not believe the subtle ST changes were different than previous or indicative of STEMI. A bedside echo was preformed and showed a moderate pericardial effusion. There was no evidence of cardiac tamponade or wall motion abnormality. It was decided that emergent cath was not indicated at this time. Troponin was 0.12, Hgb is 7.8, Na was 129, INR was 1.3. CT chest showed surgical changes. He received gentle IVF hydration. He is resting comfortably. He will be admitted for further workup and treatment. Physical Exam (per Admitting): General Appearance: + pertinent finding (Very pleasant WD/WN 61 year old male lying in bed in NAD with family at bedside ) Head: normocephalic, atraumatic Eyes: PERRL, EOMI, sclerae normal ENT: hearing grossly normal, pharynx normal Neck: supple, no JVD Respiratory/Chest: no respiratory distress, no accessory muscle use, + crackles (trace, bibasilar ), + pertinent finding (well healing incisions left chest and sternum, no signs of infection ) Cardiovascular: regular rate, rhythm, no gallop, no JVD, no murmur, normal peripheral pulses Abdomen/GI: normal bowel sounds, non tender, soft Back: normal inspection, no muscle spasm Extremities/Musculoskelatal: no calf tenderness, normal capillary refill, + pedal edema (+1-2) Neurologic/Psych: alert, oriented x 3, + pertinent finding (no focal deficits noted) Skin: normal color, warm/dry, no rash Lymphatic: no adenopathy Hospital Course Limited Echo in the setting of possible Heart Alert. 1. Normal LV size with moderate concentric LVH. 2. Normal LV systolic function. LVEF 60-65%. No regional wall motion abnormalities. 3. Grossly normal RV size and function. 4. No significant aortic stenosis or regurgitation. 5. Aortic root not well visualized. 6. Moderate pericardial effusion. No apparent tamponade. 7. Normal IVC suggestive of normal RA pressure. 8. No prior studies for comparison. CT FOR DISSECTION per radiologist read: IMPRESSION: 1. Large pericardial effusion. 2. Status post interval median sternotomy and ascending aortic repair with graft. Graft intact. Expected postsurgical appearance of the ascending aortic graft. Residual dissection involving the aortic arch, descending thoracic aorta , abdominal aorta, brachiocephalic trunk, left subclavian artery and superior mesenteric artery. Involvement of the abdominal aorta and branch vessels within the abdomen and pelvis is better depicted on the CTA of the abdomen and pelvis. 3. Linear filling defects within several bilateral lower lobe pulmonary arteries consistent with pulmonary emboli. In retrospect, these were present on prior CT of June 16, 2016 and likely reflect chronic pulmonary emboli. 4. Trace bilateral pleural effusions with associated opacities which likely reflect atelectasis. CXR Per radiologist read: IMPRESSION: Cardiomegaly post median sternotomy Chest Pain R/O ACS: Clinically & hemodynamically remains stable. -Reviewed Echo findings -Troponin trend is ).103 --> 0.094 --> 0.076--> 0.052. -EKG with ST elevation but similar to previous -Seen by Dr. Boland and Dr. Luna & Dr. Luna has been following for Cardiology -Continue Statin, BB, ASA Acute Blood Loss Anemia: Likely secondary to recent aortic dissection, Hgb was 9 at discharge -Transfused 2 units PRBCs -Following CBC closely Leukocytosis: Likely reactive -will follow daily -no indication for Abx at this time Atrial Flutter: HR is stable now. -Continue BB, anticoagulation Pericardial Effusion: Post-surgical. No sign of tamponade -Management per cardiology Hyponatremia: Sodium is 133 today.Appears euvolemic on exam -Low Serum osmolality -follow PRP -lasxi X one dose given Right Acute DVT: CT chest with chronic PE -Continue Coumadin with Lovenox bridge -INR 12.0 today Constipation: Likely secondary to narcotic use -Tylenol with codeine ordered for pain, when ACS is r/o consider NSAIDs -continue bowel regimen CKD Stage III With Renal Infarct: Crea 1.6 which is baseline -follow PRP daily -Avoid any Nephrotoxin History Type Type A Dissection Repair: Stable. -Management per Cardiology Hypothyroidism: Continue Synthroid DVT Prophylaxis: Warfarin Code Status: FULL CODE Disposition: Discharge home later today. Has been cleared by Cardiology. Follow up with PCP within one week after discharge. Follow up with Cardio-thoracic as per the scheduled follow up plan. Total time spent on discharge = 40 minutes. This includes examination of the patient, discharge planning, medication reconciliation, and communication with other providers. Discharge Instructions Discharge Goals Goal(s): Decrease discomfort, Improve function, Increase independence, Improve disease control, Improve nutritional status, Learn about illness, Diagnostic testing, Therapeutic intervention Activity Recommendations Activity Limitations: resume your previous activity (As tolerated.) Lifting Limitations: no more than 5 pounds Exercise/Sports Limitations: as tolerated May Resume Sexual Activity: when tolerated Shower/Bathe: no limitations Driving or Machine Use: no limitations (As tolerated.) . Instructions / Follow-Up Instructions / Follow-Up Follow up with PCP within one week after discharge. Follow up with Cardio-thoracic as per the scheduled follow up plan. Follow up with Coumadin Clinic in 2-3 days for PT/INR check. Current Hospital Diet Patient's current hospital diet: AHA Diet (Heart Healthy), Renal Diet Discharge Diet Recommended Diet: AHA Diet (Heart Healthy), Renal Diet Fluid Restriction: 1800 ml (7 cups) Additional Copies To Bradford Hector M.D.
[2016-06-29 15:28] VITALS: BP 100/65
[2016-06-29 15:40] VITALS: PULSE 85; TEMP 37; O2SAT 96
[2016-06-29] MEDS: WARFARIN SOD 7.5 MG TAB PO SCH (15:40)
[2016-11-12] MEDS ORDERED: LPR25 PO (11:24)
== END 2016-06-29 06:10 | disposition home health service (06) | DRG 315 ==
LOC: ENRESERVTM → ENRESERVDT → C.ED 11:22 → EDBD 11:22 → C.2E 15:30 → UNDOADMIN 16:57 → C.2E 16:57
PROVIDERS: ADMIT Hospitalist; ATTEND Emergency Medicine
DX: I31.3 Pericardial effusion (noninflammatory) (principal); I27.82 Chronic pulmonary embolism; D62 Acute posthemorrhagic anemia; I48.92 Unspecified atrial flutter; E87.1 Hypo-osmolality and hyponatremia; I82.4Z1 Acute embolism and thrombosis of unspecified deep veins of right distal lower extremity; I12.9 Hypertensive chronic kidney disease with stage 1 through stage 4 chronic kidney disease, or unspecified chronic kidney disease; N18.3 Chronic kidney disease, stage 3 (moderate); G89.18 Other acute postprocedural pain; E03.9 Hypothyroidism, unspecified; Z87.891 Personal history of nicotine dependence; Z79.01 Long term (current) use of anticoagulants; K59.03 Drug induced constipation; T40.605A Adverse effect of unspecified narcotics, initial encounter; Y92.009 Unspecified place in unspecified non-institutional (private) residence as the place of occurrence of the external cause; N40.0 Benign prostatic hyperplasia without lower urinary tract symptoms; Z98.890 Other specified postprocedural states; Z86.718 Personal history of other venous thrombosis and embolism

== ENCOUNTER 2016-10-14 03:59 | Emergency (ER) | payer OTHER ==
[~2016-10-14] VITALS: Ht 190.5 cm; Wt 118.3 kg
[~2016-10-14 03:59] MED LIST changes: +ALUMSUS2 PO; +ASPI-435 PO; +ATOR-54 PO; -CALC500C3 PO; +DOCU100C31 PO; +ENOX120I SQ; +FAMO20TA11 PO; +FLUT0.15 NAE; +FRS/40 PO; +METO25TA56 PO; +MOMLX PO; +NYSS/ PO; +ONDA4TAB46 PO; +OXYC1TAB3 PO; +POLY335019 PO; +POTA10CA28 PO; +PRENTAB26 PO; +SENN-65 PO; +WARF7.5T4 PO
[2016-10-14 04:04] VITALS: Ht 190.5 cm; Wt 118.3 kg
[2016-10-14] MEDS ORDERED: ONDANSETRON INJ 2 MG/ML 2 ML VIAL IV STA (04:14)
[2016-10-14] MEDS ORDERED: SODIUM CHLORIDE 0.9% 500ML 500 ML IV STA (04:14)
[2016-10-14] MEDS ORDERED: MoRPHine SULFATE 4 MG/ML 1 ML CARP\\VIAL IV STA (04:14)
[2016-10-14] MEDS ORDERED: AMPICILLIN/SULBACTAM SOD INJ 3,000 MG in SODIUM CHLORIDE 0.9% 100ML 100 ML IV ONE (04:15)
[2016-10-14] MEDS ORDERED: DEXAMETHASONE SOD INJ 10 MG/ML VIAL IV ONE (04:15)
[2016-10-14] MEDS ORDERED: OPTIRAY 320 IV PRN (04:30)
[2016-10-14 04:46] LABS: BASO % 0.2 %; BASO ABS # 0.02 K/uL (0-0.2); COMPLETE YES; EOS % 2.1 %; HEMATOCRIT 38.2 % (42-52); IG% 0.2 %; LYMPH % 19.3 %; LYMPH ABS # 1.63 K/uL (1.2-3.4); MEAN CELL VOLUME 90.7 fL (80-100); MEAN CORPUSCULAR HEMOGLOBIN 30.2 pg (25-34); MEAN CORPUSCULAR HGB CONC 33.2 g/dl (32-36); MEAN PLATELET VOLUME 9.6 fL (7.4-10.4); MONO % 8.9 %; NEUT % 69.3 %; PLATELET COUNT 223 K/uL (130-400); RED BLOOD COUNT 4.21 M/uL (4.7-6.1); WHITE BLOOD COUNT 8.45 K/uL (4.8-10.8)
[2016-10-14 04:53] LABS: ISTAT CREATININE 1.3 mg/dl (0.6-1.3); ISTAT HEMOGLOBIN 13.6 g/dl (14.0-18.0); ISTAT IONIZED CALCIUM 1.07 mmol/l (1.12-1.32)
[2016-10-14 04:55] LABS: INR 2.3 (0.9-1.1); PARTIAL THROMBOPLASTIN RATIO 1.5; PROTHROMBIN TIME (PATIENT) 25.1 SECONDS (9.0-12.0)
[2016-10-14 05:05] LABS: CALCIUM 8.1 mg/dl (8.5-10.1); CREATININE 1.4 mg/dl (0.60-1.40); POTASSIUM 4.5 mmol/L (3.5-5.1)
[2016-10-14] MEDS ORDERED: LEVO25TA5 PO (05:28)
[2016-10-14] MEDS ORDERED: ASPCH81X PO (05:29)
[2016-10-14] MEDS ORDERED: [UNRECOGNIZED DRUG - CODE] UT (05:33)
[2016-10-14] MEDS ORDERED: WARF7.5T PO (05:33)
[2016-10-14] MEDS ORDERED: TERA1CAP PO (05:33)
[2016-10-14] MEDS ORDERED: FINA5TAB PO (05:33)
[2016-10-14 05:36] VITALS: BP 116/79; PULSE 108; TEMP 36.9; O2SAT 93
--- NOTE | 2016-10-14 05:51 | EMERGENCY ROOM VISIT NOTE ---
History First contact with patient: 04:08 Chief Complaint: DENTAL PAIN Stated Complaint: ABCESS TOOTH Nursing Triage Summary: pt woke yesterday morning with facial swelling states every couple years it flares up, gets an abcess left upper canine tooth. History of Present Illness The patient is a 61 year old male who presents to the Emergency Room with complaints of left-sided facial pain and infection for the past day. This has happened before. This is worse than normal. Patient states he needs to see a dentist. He has not seen one in a while. He does have extensive dental decay. Patient describes the pain as throbbing, ranging in severity 7 out of 10 worse with palpation and better with rest. It does not radiate. Patient denies fevers, chest pain, dyspnea, neck pain, cough, congestion, abdominal pain, diaphoresis. Tetanus is current. He does not smoke. He is on Coumadin for recurrent DVT. Review of Systems See HPI for pertinent positives & negatives. A total of 10 systems reviewed and were otherwise negative. Past Medical/Surgical History Medical Problems: (1) Anemia (2) Aortic dissection (3) Aortic dissection (4) Chest pain (5) CKD (chronic kidney disease), stage III (6) DVT (deep venous thrombosis) (7) DVT (deep venous thrombosis) (8) Hypertension (9) Hypothyroidism (10) Pericardial effusion (11) Tobacco abuse Surgical Problems: (1) H/O hernia repair (2) H/O thyroidectomy Family History Blood clots Cancer Social History Smoking Status: Never Smoker Marital Status: Housing Status: lives with significant other Occupation Status: employed Current/Historical Medications Scheduled Amoxicillin & Pot Clavulanate (Augmentin 875-125 mg), 1 TAB PO BID Aspirin (Aspirin Chewable), 2 TABS PO DAILY Atorvastatin (Lipitor), 20 MG PO DAILY Finasteride (Proscar), 5 MG PO DAILY Fluticasone Propionate (Nasal) (Flonase Allergy Relief), 2 SPRAYS TONE DAILY Furosemide (Lasix), 40 MG PO DAILY Levothyroxine Sodium (Levothyroxine Sodium), 200 MCG PO DAILY Levothyroxine Sodium (Levothyroxine Sodium), 1 TAB PO DAILY Metoprolol Tartrate (Lopressor) (Lopressor), 37.5 MG PO BID Potassium Chloride (Micro-K Ext Rel), 10 MEQ PO DAILY Terazosin Hcl (Hytrin), 1 MG PO HS Warfarin Sodium (Coumadin), 7.5 MG PO DAILY Scheduled PRN Nitroglycerin (Nitrostat), 0.6 MG UT UD PRN for Chest Pain Oxycodone Immediate Rel Tab (Roxicodone Ir), 1-2 TAB PO Q4H PRN for Severe Pain Allergies Coded Allergies: No Known Allergies (Verified , 10/14/16) Physical Exam Vital Signs Date Time Temp Pulse Resp B/P Pulse Ox O2 Delivery O2 Flow Rate FiO2 10/14/16 05:36 36.9 108 18 116/79 93 Room Air 10/14/16 04:04 104 18 150/83 92 Room Air Physical Exam VITALS: Vitals are noted on the nurse's note and reviewed by myself. Vital signs mildly hypertensive and tachycardic. GENERAL: Pleasant male, in no acute distress, nondiaphoretic, well-developed well-nourished. SKIN: The skin was without rashes, erythema, edema, or bruising. There is no tenting of the skin. Capillary reflex less than 2 seconds. HEAD: Normocephalic atraumatic. EARS: External auditory canals clear, tympanic membranes pearly dumont without erythema or effusion bilaterally. EYES: Pupils equal round and reactive to light and accommodation. Conjunctivae without injection, sclerae without icterus. Extraocular movements intact. NOSE: Patent, turbinates without inflammation or discharge. Left maxillary sinus tenderness. MOUTH: Mucous membranes moist. Pharynx without erythema or exudate. Uvula midline. Airway patent. Tongue does not deviate. No signs of Blair angina Face: Left zygomatic area erythematous edematous concerning for infection. Patient can fully open and close jaw without pain Dental exam: Multiple missing teeth with dental decay with left upper gumline erythematous and edematous concerning for abscess NECK: Supple without nuchal rigidity. No lymphadenopathy. No thyromegaly. Cervical spine is nontender. No JVD. HEART: Regular rate and rhythm LUNGS: Clear to auscultation bilaterally without wheezes, rales or rhonchi. No dullness to percussion. No retractions or accessory muscle use. ABDOMEN: Positive bowel sounds x 4. Normal tympanic percussion. Soft, nontender, without masses or organomegaly. Montoya sign negative. No guarding or rebound tenderness. MUSCULOSKELETAL: No muscle atrophy, erythema, or edema noted. NEURO: Patient was alert and oriented to person place and time. Normal sensation to light and sharp touch. No focal neurological deficits. Medical Decision & Procedures Laboratory Results 10/14/16 04:30 Red Blood Count 4.21, Mean Corpuscular Volume 90.7, Mean Corpuscular Hemoglobin 30.2, Mean Corpuscular Hemoglobin Concent 33.2, Mean Platelet Volume 9.6, Neutrophils (%) (Auto) 69.3, Lymphocytes (%) (Auto) 19.3, Monocytes (%) (Auto) 8.9, Eosinophils (%) (Auto) 2.1, Basophils (%) (Auto) 0.2, Neutrophils # (Auto) 5.85, Lymphocytes # (Auto) 1.63, Monocytes # (Auto) 0.75, Eosinophils # (Auto) 0.18, Basophils # (Auto) 0.02 10/14/16 04:30 Test 10/14/16 04:30 10/14/16 04:35 10/14/16 04:40 White Blood Count 8.45 K/uL (4.8-10.8) Red Blood Count 4.21 M/uL (4.7-6.1) Hemoglobin 12.7 g/dL (14.0-18.0) Hematocrit 38.2 % (42-52) Mean Corpuscular Volume 90.7 fL (80-100) Mean Corpuscular Hemoglobin 30.2 pg (25-34) Mean Corpuscular Hemoglobin Concent 33.2 g/dl (32-36) Platelet Count 223 K/uL (130-400) Mean Platelet Volume 9.6 fL (7.4-10.4) Neutrophils (%) (Auto) 69.3 % Lymphocytes (%) (Auto) 19.3 % Monocytes (%) (Auto) 8.9 % Eosinophils (%) (Auto) 2.1 % Basophils (%) (Auto) 0.2 % Neutrophils # (Auto) 5.85 K/uL (1.4-6.5) Lymphocytes # (Auto) 1.63 K/uL (1.2-3.4) Monocytes # (Auto) 0.75 K/uL (0.11-0.59) Eosinophils # (Auto) 0.18 K/uL (0-0.5) Basophils # (Auto) 0.02 K/uL (0-0.2) RDW Standard Deviation 47.3 fL (36.4-46.3) RDW Coefficient of Variation 14.3 % (11.5-14.5) Immature Granulocyte % (Auto) 0.2 % Immature Granulocyte # (Auto) 0.02 K/uL (0.00-0.02) Prothrombin Time 25.1 SECONDS (9.0-12.0) Prothromb Time International Ratio 2.3 (0.9-1.1) Activated Partial Thromboplast Time 37.9 SECONDS (21.0-31.0) Partial Thromboplastin Ratio 1.5 Est Creatinine Clear Calc Drug Dose 77.8 ml/min Estimated GFR () 62.8 Estimated GFR (Non- 54.2 BUN/Creatinine Ratio 15.0 (10-20) Calcium Level 8.1 mg/dl (8.5-10.1) Bedside Lactic Acid Venous 1.15 mmol/L (0.90-1.70) Bedside Hemoglobin 13.6 g/dl (14.0-18.0) Bedside Hematocrit 40 % (42-52) Bedside Sodium 137 mEq/L (135-144) Bedside Potassium 4.7 mEq/L (3.3-5.0) Bedside Chloride 99 mEq/L (101-112) Bedside Total CO2 26 mEq/l (24-31) Anion Gap 18.0 mmol/L (16-25) Bedside Blood Urea Nitrogen 26 mg/dl (7-18) Bedside Creatinine 1.3 mg/dl (0.6-1.3) Bedside Glucose (other) 134 mg/dl (70-99) Bedside Ionized Calcium (Riccardo) 1.07 mmol/l (1.12-1.32) Medications Administered Medications (Trade) Dose Ordered Sig/Saumya Route Start Time Stop Time Status Last Admin Dose Admin Ampicillin Sodium/ Sulbactam Sodium/ Sodium Chloride (Unasyn Inj/Nss 100ml) 108 ml @ 200 mls/hr ONE ONCE IV 10/14/16 04:15 10/14/16 04:47 DC 10/14/16 04:55 200 MLS/HR Dexamethasone Sodium Phosphate (Decadron Inj) 10 mg NOW ONCE IV 10/14/16 04:15 10/14/16 04:17 DC 10/14/16 04:55 10 MG Morphine Sulfate (MoRPHine SULFATE INJ) 4 mg NOW STAT IV 10/14/16 04:14 10/14/16 04:17 DC 10/14/16 04:56 4 MG Ondansetron HCl 4 mg 4 mg NOW STAT IV 10/14/16 04:14 10/14/16 04:17 DC 10/14/16 04:55 4 MG Sodium Chloride (Nss 500ml) 500 ml @ 999 mls/hr Q31M STAT IV 10/14/16 04:14 10/14/16 04:44 DC 10/14/16 04:54 999 MLS/HR ED Course Prior records reviewed and summarized as above. Triage Nursing notes reviewed. Additional history obtained from family. The patient's history was concerning for dental pain with facial swelling and redness of the skin. Differential diagnosis: Etiologies such as cellulitis, abscess, Blair angina, gingivitis, cavity, as well as others were entertained.. Physical examination: The physical examination was consistent with dental pain from dental infection with facial cellulitis ER treatment provided: Unasyn, Decadron, morphine, Zofran On reassessment the patient felt better. Diagnostics interpreted by me: The labs revealed no leukocytosis. Negative lactic acid Imaging studies: CT FACIAL: Periapical abscess involving the left upper canine tooth. Cellulitis suspected along the soft tissues of the left mandible and maxilla extending to the left infraorbital region. Local reactive adenopathy. No acute or healing facial fractures. The paranasal sinuses show scattered mucosal thickening and mastoid air cells are clear. Globes are intact. Retrobulbar soft tissues are unremarkable. No radiopaque foreign bodies. Up to moderate luminal narrowing of the right carotid bulb. Radiologist: Taqueria Gilman M.D. Consultation: A consultation was placed with Dr. Barker, oral surgery. The case was discussed and diagnostics were reviewed. He states he'll see the patient tomorrow in clinic. Have him call in a.m. Leave the Hep-Lock in place for IV medications. This appears to be dental abscess with facial cellulitis. Patient was neurovascularly and neurologically intact. No signs of meningitis. No signs of airways, redness. No signs of Blair angina. Patient states she will see the oral surgeon tomorrow for definitive care for his infection. Patient understands not to touch the Hep-Lock at all and leave it in place. He is advised to stay at home. He is advised take medications as directed and to call tomorrow morning at 8 AM to see the oral surgeon tomorrow for definitive care for his infection. He is advised to return to the ER immediately for fevers, spreading infection, dysphagia, worsening signs or symptoms or as needed. Patient had no signs of IV drug abuse. He seemed reliable. I felt comfortable with this treatment plan. By the evaluation outlined above emergent etiologies such as Blair angina, as well as others were deemed relatively unlikely. The pt informed about the findings as listed above. All questions were answered and pleased with the treatment. Return instructions were outlined and the patient was discharged in stable condition. Outpatient prescription management: Augmentin, OxyIR Referral: The patient was referred to oral surgery tomorrow for definitive care and for a recheck of the current condition. Case reviewed with my attending. Medical Decision As above [place] Drug Monitoring Program Search Results: patient reviewed within database, no issues identified Impression Primary Impression: Periapical abscess Additional Impression: Facial cellulitis Departure Information Dispostion Home / Self-Care Condition GOOD Prescriptions Amoxicillin & Pot Clavulanate (Augmentin 875-125 mg) 1 Tab Tab 1 TAB PO BID, #18 TAB Prov: Claudia Root .JOSE 10/14/16 Oxycodone Immediate Rel Tab (ROXICODONE IR) 5 Mg Tab 1-2 TAB PO Q4H Y for Severe Pain, #15 TAB Prov: Claudia Root PA-C 10/14/16 Referrals Bradford Chamberlain M.D. (PCP) Patient Instructions My [facility] Additional Instructions DO NOT drive, drink alcohol, operate machinery, or perform dangerous activities today. You were given medications in the ER that can affect your ability to safely function or operate a vehicle. Leave the Hep-Lock alone. Do not touch this. Keep it dry and clean. Augmentin 875 mg: Take one pill 2 times daily for 10 days for your infection. All antibiotics can cause diarrhea. If this occurs and you feel worse or it does not resolve in 1-2 days follow up with your doctor or return to the Emergency Department as this could be signs of serious underlying problems. Any medication can cause an allergic reaction, stop the pills immediately and return to the ER for rash, hives, breathing difficulties, or swelling. Oxycodone (OxyIR) 5mg: Take 1-2 pills every four hours for breakthrough pain. Avoid alcohol, operating machinery or dangerous equipment, working on ladders or roofs, DRIVING, or situations where being under the influence may be dangerous. It is recommended to use an [id number] stool softener such as Colace, 100mg twice daily while taking this medication to avoid constipation. Acetaminophen(Tylenol) may be used for fever or pain. Use 1000mg every six hours as needed. Avoid using more than 3000mg in a 24 hour period. This medication can be taken if you need to drive, work, or perform activities which may be dangerous when taking narcotic pain medication. [place] teeth twice a day, floss daily and do warm saltwater gargles 3 times a day. Call oral surgery tomorrow morning at 8 AM and they will see her tomorrow for definitive care for your dental problem. Return to ER sooner for facial swelling, fever, redness, worsening signs or symptoms or as needed. Problem Qualifiers
[2016-10-14] MEDS ORDERED: AMOX875T PO (05:54)
[2016-10-14] MEDS ORDERED: OXYC1TAB3 PO (05:54)
[2016-10-14] MEDS ORDERED: AMOXICIL/CLAVU 875MG HOME PACK PO ONE (06:00)
[2016-10-14] MEDS ORDERED: OXYCODONE IR HOME PACK PO ONE (06:00)
--- NOTE | 2016-10-14 07:33 | DIAGNOSTIC IMAGING REPORT ---
CT MAXILLOFACIAL WITH INTRAVENOUS CONTRAST HISTORY: Left facial swelling. TECHNIQUE: Multiaxial CT images of the maxillofacial region were performed reformatted in the coronal plane following the use of intravenous contrast. COMPARISON STUDY: None. FINDINGS: There is a 1 cm periapical lucency at ADA 11 which demonstrates cortical breakthrough and an adjacent 9 x 3 mm abscess abutting the buccal surface of the maxilla. There is associated left facial fat stranding/soft tissue swelling consistent with a cellulitis. Mild left submandibular lymphadenopathy is likely reactive. There is 50% narrowing of the right carotid bulb. This is due to the atherosclerotic plaque. The orbits and visualized brain parenchyma are unremarkable. Mild mucosal thickening within the left maxillary sinus. The mastoid or cells are near. No fluid levels within the paranasal sinuses. No fractures identified. Multiple additional dental caries are identified. IMPRESSION: 1. A 1 cm periapical lucency at ADA 11 which demonstrates cortical breakthrough and an adjacent 9 x 3 mm abscess abutting the buccal surface of the maxilla. 2. Left facial soft tissue swelling consistent with a cellulitis. 3. Approximately 50% narrowing at the right carotid bulb. Electronically signed by: Anselmo Mckeon M.D. 10/14/2016 7:31 AM Dictated Date/Time: 10/14/2016 7:25 AM
[2016-11-12] MEDS ORDERED: LPR25 PO (11:24)
[2017-02-25] MEDS ORDERED: LPR25 PO (11:17)
[2017-02-25] MEDS ORDERED: METO50TA16 PO (11:20)
== END 2016-10-14 06:12 | disposition home or self-care (01) ==
LOC: C.EDB 04:00
DX: K04.7 Periapical abscess without sinus (principal); L03.211 Cellulitis of face; Z86.718 Personal history of other venous thrombosis and embolism; N18.3 Chronic kidney disease, stage 3 (moderate); I12.9 Hypertensive chronic kidney disease with stage 1 through stage 4 chronic kidney disease, or unspecified chronic kidney disease; E03.9 Hypothyroidism, unspecified; Z80.9 Family history of malignant neoplasm, unspecified; Z82.49 Family history of ischemic heart disease and other diseases of the circulatory system; Z79.01 Long term (current) use of anticoagulants; Z79.82 Long term (current) use of aspirin; Z79.899 Other long term (current) drug therapy

== ENCOUNTER 2016-11-12 06:41 | Observation (INO) | payer OTHER ==
[2016-11-12] VITALS (21 sets, daily range): BP systolic 104–159; BP diastolic 57–101; PULSE 64–98; TEMP 36.4–36.6; O2SAT 93–98; Ht 190.5 cm; Wt 115.4 kg
[~2016-11-12] VITALS: Ht 190.5 cm; Wt 115.4 kg
[~2016-11-12 06:41] MED LIST changes: -ALUMSUS2 PO; +ASPCH81X PO; -ASPI-435 PO; -DOCU100C31 PO; -ENOX120I SQ; -FAMO20TA11 PO; +FINA5TAB PO; +LEVO25TA5 PO; -MOMLX PO; -NYSS/ PO; -ONDA4TAB46 PO; -POLY335019 PO; -PRENTAB26 PO; -SENN-65 PO; +TERA1CAP PO; +WARF7.5T PO; -WARF7.5T4 PO; +[UNRECOGNIZED DRUG - CODE] UT
[2016-11-12] MEDS ORDERED: PRENTAB26 PO (06:52)
[2016-11-12] MEDS ORDERED: ACET-1311 PO (06:52)
[2016-11-12] MEDS ORDERED: LANS15CA6 PO (06:52)
[2016-11-12] MEDS ORDERED: FAMO20TA11 PO (06:52)
[2016-11-12] MEDS ORDERED: FENTANYL CITRATE INJ 50 MCG/1 ML 2 ML VIAL ONE ×3 (07:45→10:11)
[2016-11-12] MEDS ORDERED: MIDAZOLAM HCL 5 MG/ML 1 ML VIAL ONE ×3 (07:45→10:38)
--- NOTE | 2016-11-12 08:21 | History & Physical Bridge Note ---
H&P Re-Evaluation Bridge Note: I have examined the patient, reviewed the History & Physical and in the interval since the performance of the History & Physical I have noted the following changes of clinical significance: Updated HNP dictated today
--- NOTE | 2016-11-12 08:22 | Procedure Note ---
Pre-Mod Sedation Assessment General Date of Moderate Sedation: Nov 12, 2016. Vital Signs: Vital Signs Past 12 Hours Date Time Temp Pulse Resp B/P (MAP) Pulse Ox O2 Delivery O2 Flow Rate FiO2 11/12/16 07:20 36.6 84 16 148/82 98 Room Air Review Cardiovascular: no edema, + irregularly irregular Abdomen: soft Lungs: lungs clear Airway Class: II Pre-Sedation Airway Assessment Oral Cavity: WNL Short Thick Neck: No Hx of Sleep Apnea: No Smoking Status: Former Smoker Mallampati Classification: Class II ASA Classification: Class II Procedure Planning Contraindications-for Mod Sed: None Yes Notes The planned sedation has been discussed with the patient and consent obtained. I have identified the patient, determined the appropriateness of sedation and have assessed the patient immediately prior to the procedure. All medicine(s) and interventions are by my order.
[2016-11-12] MEDS ORDERED: HEPARIN SOD (PORCINE) 1000 UNIT/ML 10 ML VIAL ONE (09:28)
--- NOTE | 2016-11-12 09:33 | Procedure Note ---
Pre-Mod Sedation Assessment General Date of Moderate Sedation: Nov 12, 2016. Vital Signs: Vital Signs Past 12 Hours Date Time Temp Pulse Resp B/P (MAP) Pulse Ox O2 Delivery O2 Flow Rate FiO2 11/12/16 08:52 72 16 123/60 (81) 96 Nasal Cannula 6 11/12/16 08:48 64 16 104/57 98 Nasal Cannula 5 11/12/16 08:43 64 16 121/70 98 Nasal Cannula 5 11/12/16 08:36 65 16 116/65 98 Nasal Cannula 5 11/12/16 08:34 66 16 123/70 98 Nasal Cannula 5 11/12/16 08:31 66 16 145/75 98 Nasal Cannula 5 11/12/16 08:28 69 16 120/100 98 Nasal Cannula 5 11/12/16 07:20 36.6 84 16 148/82 98 Room Air Review Cardiovascular: no edema, no gallop, no JVD, no murmur, normal peripheral pulses, + irregularly irregular Abdomen: normal bowel sounds, non tender, soft, no organomegaly, no pulsatile mass Lungs: chest non-tender, lungs clear, normal breath sounds, no respiratory distress, no accessory muscle use Airway Class: II Pre-Sedation Airway Assessment Oral Cavity: WNL Short Thick Neck: No Hx of Sleep Apnea: No Smoking Status: Former Smoker Notes The planned sedation has been discussed with the patient and consent obtained. I have identified the patient, determined the appropriateness of sedation and have assessed the patient immediately prior to the procedure. All medicine(s) and interventions are by my order.
--- NOTE | 2016-11-12 09:33 | Procedure Note ---
Post-Mod Sedation Assessment General Date of Moderate Sedation Nov 12, 2016. Vital Signs: Vital Signs Past 12 Hours Date Time Temp Pulse Resp B/P (MAP) Pulse Ox O2 Delivery O2 Flow Rate FiO2 11/12/16 08:52 72 16 123/60 (81) 96 Nasal Cannula 6 11/12/16 08:48 64 16 104/57 98 Nasal Cannula 5 11/12/16 08:43 64 16 121/70 98 Nasal Cannula 5 11/12/16 08:36 65 16 116/65 98 Nasal Cannula 5 11/12/16 08:34 66 16 123/70 98 Nasal Cannula 5 11/12/16 08:31 66 16 145/75 98 Nasal Cannula 5 11/12/16 08:28 69 16 120/100 98 Nasal Cannula 5 11/12/16 07:20 36.6 84 16 148/82 98 Room Air Review - Discharge Criteria Vital Signs Stable: Yes Alert/Oriented/Conversant: Yes Returned to Baseline Mental St: Yes Nausea Absent/Minimal: Yes Pain/Discomfort/Absent/Minimal: Yes Normal/Baseline Respirations: Yes Active Bleeding?: No Pt Received D/C Instructions: No
--- NOTE | 2016-11-12 09:35 | [facility] Post Operative Brief Note ---
Immediate Operative Summary Operative Date Nov 12, 2016. Pre-Operative Diagnosis atrial flutter Post-Operative Diagnosis same, no left atrial thrombus present Procedure(s) Performed BRANDYN Start time: 837. Stop time: 851. 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
--- NOTE | 2016-11-12 09:47 | TEE ---
*NOTICE TO RECEIVING REPUBLICAN AGENCY This information is strictly Confidential and protected under [place] law. [place] law prohibits you from making any further disclosure of this information unless further disclosure is expressly permitted by the written consent of the person to whom it pertains or is authorized by law. A general authorization for the release of medical or other information is not sufficient for this purpose. Hospital accepts no responsibility if the information is made available to any other person, INCLUDING THE PATIENT. Interpretation Summary * Name: ZEE RENEE Study Date: 11/12/2016 08:39 AM BP: 148/82 mmHg * Patient Location: [facility] HR: 72 * : 1955 (M/d/yyyy) Gender: Male Height: 73 in * Age: 61 yrs Ethnicity: [place] Weight: 255 lb * Ordering Physician: PAO BLAIR MD * Performed By: Silvana Narvaez * * Reason For Study: ATRIAL FLUTTER * BSA: 2.4 m2 * -- Conclusions -- * Normal left atrial size and no thombus present in the left atrial appendage. Velocities in the appendage averaging 5 m/s. * No significant valvular pathology. * Intimal flap present in the descending aorta, no flow in false lumen. * Atrial septal aneurysm incidentally noted. Closure not currently indicated. Procedure Details * The transesophageal portion of this study was personally supervised by the undersigned interpreting physician. * BRANDYN Probe #2 utilized for procedure. * The study was performed in Cardiac Catheterization Lab. * Time out was conducted by the physician, nurse, and hydrological technical officer with positive identification of patient and procedure. * Informed consent for Transesophageal Echocardiogram was obtained prior to the procedure. * An intravenous line was placed. A topical anesthetic agent was used for oropharangeal anesthesia. A bite block was inserted. * The patient's vital signs, including blood pressure, heart rate, pulse oximetry and cardiac rhythm were monitored throughout the procedure . * Midazolam 5 mg administered for sedation. * Fentanyl 125 mcg was administered for procedural sedation. * The posterior oropharynx was anesthetized using a topical anesthetic spray. A bite guard was inserted. * A multifrequency, multiplane transesopheageal echocardiographic endoscope was inserted and manipulated in the standard fashion to achieve multiplane views. * The transesophageal probe was passed without difficulty. * The patient tolerated the procedure well without evidence of orophangeal or esophageal trauma. * The usual views were obtained; basal, mid-esophageal, transgastric and aortic views. * A 2D transesophageal echocardiogram with spectral and color flow Doppler was performed. * BRANDYN probe was insereted at 8:38am and was taken out at 8:52am. * A 2D transesophageal echocardiogram was performed. * A 2D transesophageal echocardiogram with color flow Doppler was performed. * A 2D transesophageal echocardiogram with Doppler and color flow Doppler was performed. Left Ventricle * The left ventricle is grossly normal size. * The left ventricular wall motion is normal. Atria * The left atrial size is normal. * No thrombus is detected in the left atrial appendage. * Right atrial size is normal. * The interatrial septum is intact with no evidence for an atrial septal defect. * Atrial septal aneurysm incidentally noted, with small, hemodynamically insigificant shunt. Consider daily aspirin for stroke prophylaxis. Closure not currently indicated. Mitral Valve * The mitral valve anatomy is normal. * There is no mitral valve stenosis. * There is trace mitral regurgitation. Tricuspid Valve * The tricuspid valve anatomy is normal. * There is no tricuspid stenosis. * There is trace tricuspid regurgitation. Aortic Valve * The aortic valve is normal in structure and function. Pulmonic Valve * The pulmonary valve is not well seen, but the Doppler examination is normal without significant regurgitation or stenosis. Great Vessels * The aortic root and proximal ascending aorta are normal sized. * Intimal flap visualized in the descending aorta consistent with an aortic dissection. Pericardium * There is no pericardial effusion.
--- NOTE | 2016-11-12 11:17 | Procedure Note ---
Post-Mod Sedation Assessment General Date of Moderate Sedation Nov 12, 2016. Vital Signs: Vital Signs Past 12 Hours Date Time Temp Pulse Resp B/P (MAP) Pulse Ox O2 Delivery O2 Flow Rate FiO2 11/12/16 11:12 85 18 125/83 (97) 98 Mask 6 11/12/16 08:52 72 16 123/60 (81) 96 Nasal Cannula 6 11/12/16 08:48 64 16 104/57 98 Nasal Cannula 5 11/12/16 08:43 64 16 121/70 98 Nasal Cannula 5 11/12/16 08:36 65 16 116/65 98 Nasal Cannula 5 11/12/16 08:34 66 16 123/70 98 Nasal Cannula 5 11/12/16 08:31 66 16 145/75 98 Nasal Cannula 5 11/12/16 08:28 69 16 120/100 98 Nasal Cannula 5 11/12/16 07:20 36.6 84 16 148/82 98 Room Air Review - Discharge Criteria Vital Signs Stable: Yes Alert/Oriented/Conversant: Yes Returned to Baseline Mental St: Yes Nausea Absent/Minimal: Yes Pain/Discomfort/Absent/Minimal: Yes Normal/Baseline Respirations: Yes Active Bleeding?: No Pt Received D/C Instructions: N/A Prescriptions Given: None Specific Proced. D/C Criteria Distal Pulses Present (Cardiac: Yes Groin site assessed-Card Cath: Yes Voided Prior To Discharge: No Discharged Patients Adult Escort/Transportation: N/A
--- NOTE | 2016-11-12 11:23 | Discharge Instructions ---
Discharge Instructions Date of Service Nov 12, 2016. Admission Reason for Admission: Atrial Flutter,Ep-,Venu- Discharge Discharge Diagnosis / Problem: persistent atrial flutter Discharge Goals Goal(s): Improve function Activity Recommendations Activity Limitations: as noted below Lifting Limitations: no more than 10 pounds (no heavy lifting or squating for 1 week) May Resume Sexual Activity: after one week Shower/Bathe: tomorrow Driving or Machine Use: resume 1 day after discharge . Instructions / Follow-Up Instructions / Follow-Up You need weekly INRs for next 4 weeks. ACTIVITY RECOMMENDATIONS: It is common to feel weak and fatigue for a few days. * Do not drive or operate any motorized equipment for the next 1 day. * Limit stair usage (2 or 3 trips a day only) for the next three days. * Do not lift anything heavier than 10 pounds for the next 7 days. * Do not engage in vigorous exercise or any sports for the next five days. * You may shower the day after your procedure, but do not immerse the area for three days. Cleanse the site gently with soap and water. SPECIAL CARE INSTRUCTIONS: * You may replace the pressure dressing or band-aid the morning after the procedure. * After your procedure, it is normal to have a small bruise or small lump at the site. Examine your site daily for any change in the bruise or lump, redness, swelling, drainage or numbness. Notify your doctor if any change. BLEEDING: * If there is a small amount of bleeding at the site, lie down and apply firm pressure with a clean cloth for ten minutes. When the bleeding stops, lie quietly keeping the procedure limb straight for six hours. Notify your doctor as soon as possible. * If the bleeding does not stop after ten minutes or if there is a large amount of bleeding or spurting, call 911 immediately. Continue to lie down and hold firm pressure until help arrives. SKIN IRRITATION: * You may experience some redness and/or swelling in the area where radiation was administered. If any skin irritation occurs, please contact your family physician. FOLLOW UP VISIT: Keep any scheduled doctor appointments. Current Hospital Diet Patient's current hospital diet: AHA Diet (Heart Healthy) Discharge Diet Recommended Diet: AHA Diet (Heart Healthy) Procedures Procedures Performed: VENU EPS, 3d mapping of atrial flutter/ra/coronary sinus os; radiofrequency ablation of CTI Pending Studies Studies pending at discharge: no Medical Emergencies . Who to Call and When: Medical Emergencies: If at any time you feel your situation is an emergency, please call 911 immediately. . Non-Emergent Contact Non-Emergency issues call your: Associate Professor Of Management . . "Provider Documentation" section prepared by Geovanna Anderson. . VTE Core Measure Inpt VTE Proph given/why not?: Warfarin (Coumadin)
[2016-11-12] MEDS ORDERED: LPR25 PO (11:24)
[2016-11-12] MEDS ORDERED: ACETAMINOPHEN 325 MG TAB PO PRN (11:30)
[2016-11-12] MEDS ORDERED: NITROGLYCERIN 0.6 MG/1 TAB 100 TAB BTL UT PRN (11:30)
--- NOTE | 2016-11-12 11:30 | Discharge Summary ---
Discharge Summary Date of Service Nov 12, 2016. 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 Hypothyroidism GERD BPH Procedures: EPS with 3D mapping of RA/atrial flutter and coronary sinus os; radiofrequency ablation of CTI Medication Reconciliation New Medications: Metoprolol Tartrate (Lopressor) 25 Mg Tab 25 MG PO BID for 30 Days, #60 TAB Continued Medications: Acetaminophen (Tylenol) 325 Mg Tab 325 MG PO, TAB Aspirin (Aspirin Chewable) 81 Mg Chew 2 TABS PO DAILY Atorvastatin (Lipitor) 20 Mg Tab 20 MG PO DAILY, TAB Famotidine (Pepcid) 20 Mg Tab 20 MG PO DAILY, TAB Finasteride (Proscar) 5 Mg Tab 5 MG PO DAILY, TAB Fluticasone Propionate (Nasal) (Flonase Allergy Relief) 50 Mcg/Act Spr 2 SPRAYS TONE DAILY Lansoprazole (Prevacid) 15 Mg Capcr 15 MG PO DAILY, CAP Levothyroxine Sodium (Levothyroxine Sodium) 200 Mcg Tab 200 MCG PO DAILY Levothyroxine Sodium (Levothyroxine Sodium) 25 Mcg Tab 1 TAB PO DAILY for 90 Days, #90 TAB 3 Refills Multivit/Min/Iron/Fol Ac/Pren ( Vitamin) Tab 1 TAB PO DAILY, TAB Nitroglycerin (Nitrostat) 0.6 Mg Sub 0.6 MG UT UD PRN for Chest Pain Terazosin Hcl (Hytrin) 1 Mg Cap 1 MG PO HS, CAP Warfarin Sodium (Coumadin) 7.5 Mg Tab 7.5 MG PO DAILY, TAB Discontinued Medications: Furosemide (Lasix) 40 Mg Tab 40 MG PO DAILY, TAB Metoprolol Tartrate (Lopressor) (Lopressor) 25 Mg Tab 37.5 MG PO BID 1 & 1/2 tablet dose Potassium Chloride (Micro-K Ext Rel) 10 Meq Capcr 10 MEQ PO DAILY, CAP Admission Information Physical Exam (per Admitting): aaox3, NAD Supple No JVD Irregular S1S2 no murmur CTA b/l No w/r/r soft NT/ND no edema b/l no focal deficits skin intact Hospital Course Pt admitted for elective EPS and radiofrequency ablation due to persistent atrial flutter. Pt first had BRANDYN performed that ensured no KRISTI thrombus by Dr. Boland. Then he underwent EPS with radiofrequency ablation of atrial flutter to SR. INR was 2.5 performed at during the EPS procedure. He was monitored overnight and discharged home on a lower dose of metoprolol and his lasix and potassium were stopped. Total time spent on discharge = 30 minutes This includes examination of the patient, discharge planning, medication reconciliation, and communication with other providers. Discharge Instructions You need weekly INRs for next 4 weeks. ACTIVITY RECOMMENDATIONS: It is common to feel weak and fatigue for a few days. * Do not drive or operate any motorized equipment for the next 1 day. * Limit stair usage (2 or 3 trips a day only) for the next three days. * Do not lift anything heavier than 10 pounds for the next 7 days. * Do not engage in vigorous exercise or any sports for the next five days. * You may shower the day after your procedure, but do not immerse the area for three days. Cleanse the site gently with soap and water. SPECIAL CARE INSTRUCTIONS: * You may replace the pressure dressing or band-aid the morning after the procedure. * After your procedure, it is normal to have a small bruise or small lump at the site. Examine your site daily for any change in the bruise or lump, redness, swelling, drainage or numbness. Notify your doctor if any change. BLEEDING: * If there is a small amount of bleeding at the site, lie down and apply firm pressure with a clean cloth for ten minutes. When the bleeding stops, lie quietly keeping the procedure limb straight for six hours. Notify your doctor as soon as possible. * If the bleeding does not stop after ten minutes or if there is a large amount of bleeding or spurting, call 911 immediately. Continue to lie down and hold firm pressure until help arrives. SKIN IRRITATION: * You may experience some redness and/or swelling in the area where radiation was administered. If any skin irritation occurs, please contact your family physician. FOLLOW UP VISIT: Keep any scheduled doctor appointments.
--- NOTE | 2016-11-12 11:31 | [facility] Post Operative Brief Note ---
Immediate Operative Summary Operative Date Nov 12, 2016. Pre-Operative Diagnosis presistent atrial flutter Post-Operative Diagnosis same, sinus rhythm Procedure(s) Performed EPS, 3d mapping of atrial flutter/ra/coronary sinus os; radiofrequency ablation of CTI Surgeon Monica Occupational Health Coordinator Surgeon(s) none Estimated Blood Loss <5cc Findings see official OP note Fluids (cc crystalloids) 650cc Specimens none Drains none Anesthesia 7mg versed and 175mcg fentanyl Complication(s) None Disposition PCU
[2016-11-12] MEDS ORDERED: IV FLUIDS COMPLETED PRN (12:00)
[2016-11-12 12:52] LABS: HEMATOCRIT 37.9 % (42-52); MEAN CELL VOLUME 90.7 fL (80-100); MEAN CORPUSCULAR HEMOGLOBIN 29.9 pg (25-34); MEAN PLATELET VOLUME 9.7 fL (7.4-10.4); PLATELET COUNT 203 K/uL (130-400); RED BLOOD COUNT 4.18 M/uL (4.7-6.1); WHITE BLOOD COUNT 5.81 K/uL (4.8-10.8)
[2016-11-12 13:06] LABS: INR 2.8 (0.9-1.1); PROTHROMBIN TIME (PATIENT) 31.8 SECONDS (9.0-12.0)
[2016-11-12] MEDS: METOPROLOL TARTRATE 25 MG TAB PO SCH (20:14)
[2016-11-13] VITALS: BP 124/72; PULSE 89; TEMP 36.7; O2SAT 94
[2016-11-13 04:00] VITALS: BP 145/85; PULSE 104; TEMP 36.3; O2SAT 94
[2016-11-13] MEDS ORDERED: LEVOTHYROXINE 200 MCG TAB PO SCH (06:00)
[2016-11-13] MEDS ORDERED: LEVOTHYROXINE 25 MCG TAB PO SCH (06:00)
[2016-11-13 08:07] VITALS: BP 115/66; PULSE 87; TEMP 36.8; O2SAT 99
[2016-11-13] MEDS: METOPROLOL TARTRATE 25 MG TAB PO SCH (08:10)
--- NOTE | 2016-11-13 08:28 | Cardiology Follow-Up ---
Subjective Subjective Date of Service: Nov 13, 2016. Pt evaluation today including: conversation w/ patient, physical exam, chart review, lab review Pain: none Voiding: no voiding problems Problem List Medical Problems: (1) Chronic pulmonary embolism Status: Acute (2) Elevated troponin Status: Acute (3) Facial cellulitis Status: Acute (4) Periapical abscess Status: Acute (5) Substernal chest pain Status: Acute Review of Systems Constitutional: No fever, No fatigue Respiratory: No cough, No shortness of breath Cardiac: No chest pain, No edema, No palpitations Abdomen: No nausea, No vomiting, No diarrhea Neurologic: No weakness Endo: No fatigue Objective Vital Signs Last Vital Signs Documentation Date Time Temp Pulse Resp B/P (MAP) Pulse Ox O2 Delivery O2 Flow Rate FiO2 11/13/16 08:07 36.8 87 18 115/66 (82) 99 11/13/16 04:00 Room Air 11/12/16 11:17 6 Physical Exam: General Appearance: WD/WN, no apparent distress Eyes: bilateral eyes PERRL, bilateral eyes EOMI Neck: supple, no JVD Respiratory/Chest: lungs clear, normal breath sounds Cardiovascular: regular rate, rhythm, no edema, no JVD, + systolic murmur Abdomen: non tender (b/l groins soft, no hematoma, no ecchymosis), soft Extremities: + pertinent finding Neurologic/Psychiatric: alert, normal mood/affect Skin: normal color, warm/dry Assessment and Plan Impression: 1. Persistent atrial flutter post op, s/p CTI ablation 11/12/2016 2. H/o Thoracic Type A aortic dissection s/p emergent repair 3. S/p AVR and coronary resuspension at time of emergent dissection repair 4. 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 BPH Plan: -Ok for discharge home today -Decrease metoprolol 25mg BID -Stop lasix and potassium -Continue other home medications -Needs weekly INRs for next month -F/u with me in 1 month Discharge planning: home Medications: Medications Administered Medications (Trade) Dose Ordered Sig/Saumya Route Start Time Stop Time Status Last Admin Dose Admin Midazolam HCl (Versed Inj) 10 mg STK-MED ONCE .ROUTE 11/12/16 07:45 11/12/16 07:46 DC 11/12/16 07:45 5 MG Fentanyl Citrate (Fentanyl Inj) 300 mcg STK-MED ONCE .ROUTE 11/12/16 07:45 11/12/16 07:46 DC 11/12/16 07:45 125 MCG Midazolam HCl (Versed Inj) 5 mg STK-MED ONCE .ROUTE 11/12/16 08:58 11/12/16 08:59 DC 11/12/16 08:58 5 MG Fentanyl Citrate (Fentanyl Inj) 100 mcg STK-MED ONCE .ROUTE 11/12/16 09:00 11/12/16 09:01 DC 11/12/16 09:00 100 MCG Fentanyl Citrate (Fentanyl Inj) 100 mcg STK-MED ONCE .ROUTE 11/12/16 10:11 11/12/16 10:12 DC 11/12/16 10:11 75 MCG Midazolam HCl (Versed Inj) 5 mg STK-MED ONCE .ROUTE 11/12/16 10:38 11/12/16 10:39 DC 11/12/16 10:38 2 MG Levothyroxine Sodium (Synthroid Tab) 25 mcg DAILYBB PO 11/13/16 06:00 12/13/16 05:59 11/13/16 06:00 25 MCG Levothyroxine Sodium (Synthroid Tab) 200 mcg DAILYBB PO 11/13/16 06:00 12/13/16 05:59 11/13/16 06:00 200 MCG Metoprolol Tartrate (Lopressor Tab) 25 mg BID PO 11/12/16 21:00 12/12/16 20:59 11/12/16 20:14 25 MG Terazosin HCl (Hytrin Cap) 1 mg HS PO 11/12/16 21:00 12/12/16 20:59 11/12/16 20:15 1 MG Lab Results: Telemetry: SR 80-90s ECG: SR 1st degree AV block Last 24 Hours Test 11/12/16 09:37 11/12/16 12:26 11/13/16 08:13 Bedside Prothrombin Time INR 2.5 White Blood Count 5.81 K/uL Red Blood Count 4.18 M/uL Hemoglobin 12.5 g/dL Hematocrit 37.9 % Mean Corpuscular Volume 90.7 fL Mean Corpuscular Hemoglobin 29.9 pg Mean Corpuscular Hemoglobin Concent 33.0 g/dl RDW Standard Deviation 47.6 fL RDW Coefficient of Variation 14.3 % Platelet Count 203 K/uL Mean Platelet Volume 9.7 fL Prothrombin Time 31.8 SECONDS Prothromb Time International Ratio 2.8
[2016-11-13 08:46] LABS: INR 2.5 (0.9-1.1); PROTHROMBIN TIME (PATIENT) 27.4 SECONDS (9.0-12.0)
[2016-11-13] MEDS ORDERED: FUROSEMIDE 40 MG TAB PO SCH (09:00)
[2016-11-13] MEDS ORDERED: PRENATAL VITAMIN TAB PO SCH (09:00)
[2016-11-13] MEDS ORDERED: FAMOTIDINE 20 MG TAB PO SCH (09:00)
[2016-11-13] MEDS ORDERED: FLUTICASONE PROPIONATE NA SPR 16 GM BTL NAE SCH (09:00)
[2016-11-13] MEDS ORDERED: FINASTERIDE 5 MG TAB PO SCH (09:00)
[2016-11-13] MEDS ORDERED: ASPIRIN 81 MG ECTAB PO SCH (09:00)
[2016-11-13] MEDS ORDERED: POTASSIUM CHLORIDE 10 MEQ TABCR PO SCH (09:00)
[2016-11-13] MEDS ORDERED: ATORVASTATIN 20 MG TAB PO SCH (09:00)
[2016-11-13 09:52] VITALS: BP 115/66; PULSE 87; TEMP 36.8; O2SAT 99
[2016-11-13] MEDS ORDERED: WARFARIN SOD 7.5 MG TAB PO SCH (16:00)
--- NOTE | 2016-11-27 13:29 | [facility] Operative Report ---
Operative Report Operative Date Nov 27, 2016. Pre-Operative Diagnosis presistent atrial flutter Post-Operative Diagnosis same, sinus rhythm Procedure(s) Performed EPS, 3d mapping of atrial flutter/ra/coronary sinus os; radiofrequency ablation of CTI Surgeon Monica Hard Tile Setter Apprentice Surgeon(s) none Estimated Blood Loss <5cc Findings DATE OF OPERATION: 11/12/2016 PREOPERATIVE DIAGNOSIS: Persistent atrial flutter. POSTOPERATIVE DIAGNOSES: Typical rclockwise right atrial flutter, sinus rhythm, bidirectional block over the cavotricuspid isthmus. SURGEON: Geovanna Anderson, DO PROCEDURES: 3D activation mapping of typical clockwise right atrial flutter, radiofrequency ablation of a cavotricuspid isthmus line, electrophysiology study. ANESTHESIA: Monitored conscious sedation administered by Jorge Pratt under my supervision. Start time 09:21; end time 11:12; total of 7mg versed and 175mcg fentanyl. ESTIMATED BLOOD LOSS: Less than 10 mL. IV FLUIDS: 650 mL. URINE OUTPUT: Not applicable. SPECIMENS: None. FINDINGS: See below. COMPLICATIONS: None. CONDITION: Stable. DRAINS: None. INDICATIONS: This is a 61-year-old gentleman who has a past medical history for persistent atrial flutter post cardiac surgery and symptomatic remains on coumadin. Additional PMH Type A aortic disection s/p emergent repair with coronary artery resuspension and AVR, post op DVT with history of DVT as well, CKD stage III, HLD, Hypothyroidism, h/o renal artery occlusion due to the extension of the aortic dissection, BPH and GERD. Due to his persistent atrial flutter, he was recommended an atrial flutter ablation. Along with a BRANDYN prior to the procedure which was performed by my partner Dr. Boland due to persistent AF and h/o DVT. CONSENT: Consent was obtained prior to the patient going into the electrophysiology lab. The patient was informed of the risks, benefits and alternatives to the procedure. Risks include but not limited to sudden cardiac , cardiac arrhythmias, cerebrovascular accident, myocardial infarction, injury to the blood vessels, chamber of the heart or the unga electrical system where we would need a permanent pacemaker, bleeding, infection, or blood clot. The patient understood these risks and agreed to have the procedure as planned. Informed consent was obtained. DESCRIPTION OF PROCEDURE: The patient was brought into the electrophysiology lab in a fasting state. He was connected to continuous cardiac monitoring. A timeout was performed to ensure patient's identity and procedure correctly. The patient was prepped and draped over the bilateral groins in normal surgical standard fashion. [place] precautions were maintained throughout the procedure. Monitored general anesthesia was given throughout the procedure for the patient's comfort level, administered via anesthesiology. Of note the patient had a BRANDYN prior to entering the EP lab by my partner Dr. Boland and there was no KRISTI thrombus. Using the modified Seldinger technique, venous access was obtained in the following manner. The left femoral vein, I did not have any trouble with the access however and the wire went up smoothly when I placed a 7-Namibian and 8-Namibian sheath in and when I aspirated, I got a good blood drawn back but when I went to advance the CS catheter, it was not going, I felt some resistance. So I then opted to give IV contrast through both sheaths. It looked like maybe I was in possibly a branch or there was some stenosis, so I opted to abort the access on the left femoral vein. We pulled the sheath and used manual compression to establish hemostasis. Using the modified Seldinger technique, the right femoral vein was accessed 3 times in the following way. A 6-Namibian sheath was placed and then eventually swapped out for an SRO, followed by the ablation 4 mm Biosense SmartTouch ThermoCool DF curve catheter. An 8-Namibian sheath, followed by a Halo 20 pole catheter that was positioned around the right atrium. A 7-Namibian sheath, followed by a Biosense coronary sinus Decapolar catheter was positioned out in the coronary sinus. The atrial flutter cycle length was 244 milliseconds and it was clockwise through the tricuspid isthmus. With entrainment from CTI the TCL-PPI was 10ms proving the CTI was part of the circuit. Entrainment from c/s prox the TCL-PPI was 30ms; and entrainment from the distal C/S the activation pattern was different on the Halo catheter and the TCL-PPI was 90ms indicating that the flutter was not from the LA. We did 3D activation map of atrial flutter. Then I positioned the ablation catheter at the cavotricuspid isthmus, starting from the tricuspid valve and gave a series of radiofrequency kraft, 35 clark each for a minute, down along the cavotricuspid isthmus line to the IVC. We did break in back to sinus rhythm during one of the ablations, very close to the IVC. During this, there was a 4.3-second conversion pause and then he went back into sinus rhythm. I continued with ablation particularly in the area where there was a pocket and pouch after we had broken to sinus rhythm until we had bidirectional block. During our 30-minute waiting period, I did perform the electrophysiology study. The ablation catheter was swapped out and a Zedmo quad catheter was placed initially over the His bundle to get His recordings and then eventually placed into the right ventricle apex to get RV ERP. ELECTROPHYSIOLOGY STUDY FINDINGS: 1. NM interval 200ms, QRS 120 milliseconds, QT 396 milliseconds. 2. Sinus cycle length 768 milliseconds, AH 118 milliseconds, HV 56 milliseconds. 3. AV Wenckebach 520 milliseconds, AV node ERP 650/360 and 500/340. 4. Atrial ERP 650/220, 500/200. 5. The right ventricular ERP is 600/280 and 400/250. I gave up to double atrial extrastimuli from the high right atrium. I was not able to induce any atrial flutter. We then continued after a 30-minute waiting period. Checked for bidirectional block along the cavotricuspid isthmus line again. With pacing proximal, measuring to lateral to the line, I had 180-millisecond time interval. When pacing lateral and measuring medial to the line, I had a 170-millisecond time interval. All the catheters were removed from the body and the sheaths were pulled and manual compression was used to establish hemostasis. The patient was monitored post general anesthesia and then eventually brought up to his room. IMPRESSION: 1. Successful bidirectional block of the cavotricuspid isthmus due to persistent typical clockwise right atrial flutter. 2. Normal AV leti conduction. PLAN: Monitor patient overnight, 12-lead ECG. He can probably stop lasix and we will decrease his metoprolol. He should continue his coumadin with weekly INR checks for the next month and I will see him in the office in 1 month. He is not to do any heavy lifting or squatting for 1 week. Fluids 650cc Specimens none Drains none Anesthesia 7mg versed and 175mcg fentanyl Complication(s) None Disposition PCU I attest to the content of the Intraoperative Record and any orders documented therein. Any exceptions are noted below.
--- NOTE | 2016-12-04 09:55 | History and Physical ---
History & Physical Date Dec 04, 2016. Chief Complaint sob, palpitations History of Present Illness The patient is a 61 year old male with complaints of sob and palpitations due to persistent atrial flutter Past Medical/Surgical History Medical Problems: (1) Anemia (2) Aortic dissection (3) Aortic dissection (4) Atrial flutter (5) Chest pain (6) CKD (chronic kidney disease), stage III (7) DVT (deep venous thrombosis) (8) DVT (deep venous thrombosis) (9) Hypertension (10) Hypothyroidism (11) Pericardial effusion (12) Tobacco abuse Surgical Problems: (1) H/O hernia repair (2) H/O thyroidectomy Additional History Hepatic Disease: No Endocrine Disorder: Yes Kidney Disease: Yes Hypertension: No Heart Disease: Yes Bleeding Tendencies: No Infectious Diseases: No Allergies Coded Allergies: No Known Allergies (Verified , 10/14/16) Home Medications Scheduled Aspirin (Aspirin Chewable), 2 TABS PO DAILY Atorvastatin (Lipitor), 20 MG PO DAILY Famotidine (Pepcid), 20 MG PO DAILY Finasteride (Proscar), 5 MG PO DAILY Fluticasone Propionate (Nasal) (Flonase Allergy Relief), 2 SPRAYS TONE DAILY Lansoprazole (Prevacid), 15 MG PO DAILY Levothyroxine Sodium (Levothyroxine Sodium), 200 MCG PO DAILY Levothyroxine Sodium (Levothyroxine Sodium), 1 TAB PO DAILY Metoprolol Tartrate (Lopressor), 25 MG PO BID Multivit/Min/Iron/Fol Ac/Pren ( Vitamin), 1 TAB PO DAILY Terazosin Hcl (Hytrin), 1 MG PO HS Warfarin Sodium (Coumadin), 7.5 MG PO DAILY Scheduled PRN Nitroglycerin (Nitrostat), 0.6 MG UT UD PRN for Chest Pain Miscellaneous Medications Acetaminophen (Tylenol), 325 MG PO Physical Examination Skin: warm/dry Eyes: EOMI Neck: supple Respiratory/Chest: lungs clear, normal breath sounds Cardiovascular: no edema, + irregularly irregular Abdomen / GI: normal bowel sounds Back: normal inspection Extremities: normal inspection Neurologic/Psych: alert, oriented x 3 Diagnosis 1. Persistent atrial flutter; post open heart surgery 2. Type A aortic dissection s/p repair with coronary resuspension and AVR 3. Post op DVT with history of DVT 4. CKD stage III 5. HLD 6. Hypothyroidism 7. H/o renal artery occlusion at time of aortic dissection 8. BPH 9. GERD ASA Classification: ASA Class II Plan of Treatment recommend BRANDYN followed by radiofrequency ablation for atrial flutter
[2017-02-25] MEDS ORDERED: LPR25 PO (11:17)
[2017-02-25] MEDS ORDERED: METO50TA16 PO (11:20)
== END 2016-11-13 10:30 | disposition home or self-care (01) ==
LOC: C.EP 06:41 → ENRESERV 10:36 → C.2T 11:21
PROVIDERS: ADMIT Internal Medicine; ATTEND Internal Medicine
DX: I48.92 Unspecified atrial flutter (principal); N40.0 Benign prostatic hyperplasia without lower urinary tract symptoms; E78.5 Hyperlipidemia, unspecified; N18.3 Chronic kidney disease, stage 3 (moderate); E03.9 Hypothyroidism, unspecified; K21.9 Gastro-esophageal reflux disease without esophagitis; Z79.82 Long term (current) use of aspirin; Z79.899 Other long term (current) drug therapy; Z79.01 Long term (current) use of anticoagulants; Z87.891 Personal history of nicotine dependence

== ENCOUNTER → 2017-08-07 | Outpatient (CLI) | payer OTHER ==
[~2017-08-07] MED LIST changes: +ACET-1311 PO; +FAMO20TA11 PO; -FRS/40 PO; +LANS15CA6 PO; -METO25TA56 PO; +METO50TA16 PO; -OXYC1TAB3 PO; -POTA10CA28 PO
[2017-08-07 13:06] LABS: HEMATOCRIT 41.7 % (42-52); HEMOGLOBIN 14.6 g/dL (14.0-18.0); MEAN CELL VOLUME 94.6 fL (80-100); MEAN CORPUSCULAR HEMOGLOBIN 33.1 pg (25-34); MEAN PLATELET VOLUME 10.1 fL (7.4-10.4); PLATELET COUNT 223 K/uL (130-400)
[2017-08-07 13:18] LABS: INR 1.9 (0.9-1.1)
[2017-08-07 13:56] LABS: ALT/SGPT 48 U/L (12-78); BLOOD UREA NITROGEN 26 mg/dl (7-18); CALCIUM 8.6 mg/dl (8.5-10.1); CARBON DIOXIDE 27 mmol/L (21-32); CHOLESTEROL 177 mg/dl (0-200); CREATININE 1.41 mg/dl (0.60-1.40); GLUCOSE 102 mg/dl (70-99); POTASSIUM 4.1 mmol/L (3.5-5.1); SODIUM 133 mmol/L (136-145)
[2017-08-07 14:07] LABS: ALKALINE PHOSPHATASE 56 U/L (45-117); AST/SGOT 34 U/L (15-37); LDL CHOLESTEROL CALCULATED 101 mg/dl; TOTAL PROTEIN 7.5 gm/dl (6.4-8.2)
== END | disposition home or self-care (01) ==
LOC: C.LABPVFM 09:10
PROVIDERS: ATTEND Family Medicine
DX: I27.82 Chronic pulmonary embolism (principal); E03.9 Hypothyroidism, unspecified

== ENCOUNTER → 2017-08-28 | Outpatient (CLI) | payer OTHER ==
[~2017-08-28] MED LIST changes: +OPTIRAY 320 IV PRN
--- NOTE | 2017-08-28 13:56 | DIAGNOSTIC IMAGING REPORT ---
CT ANGIOGRAM OF THE CHEST COMBO CLINICAL HISTORY: Thoracic aortic dissection status post surgical repair. COMPARISON STUDY: Chest CT scans dated 06/27/2016 and 06/16/2016. TECHNIQUE: Before and following the IV administration of 94 cc of Optiray 320, CT angiogram of the chest was performed from the thoracic inlet to the upper abdomen utilizing the dissection protocol. Images are reviewed in the axial, sagittal, and coronal planes. 3-D MIPS images are created and assessed. IV contrast was administered without complication. A dose lowering technique was utilized adhering to the principles of ALARA. CT DOSE: 2026.93 mGy.cm FINDINGS: Thyroid: Atrophic. Thoracic aorta: No intramural hematoma is identified on the unenhanced series. Postoperative change is seen at the aortic root, and there is ectasia/aneurysmal dilatation of the thoracic aorta. The ascending thoracic aorta measures up to 2.7 cm, the aortic arch measures up to 3.0 cm, and the descending thoracic aorta measures up to 4.0 cm. The aorta measures 3.9 cm at the esophageal hiatus. A type-A dissection is again seen, and this originates in the ascending thoracic aorta and extends into the visualized upper abdominal aorta. Both the true and false lumen are patent. The aortic arch demonstrates standard 3-vessel anatomy. The arch vessels are patent. Dissection extends into the left subclavian artery and into the left axillary artery and the shoulder. Dissection also extends approximately 4 cm into the innominate artery. There is no involvement of the left common carotid artery. Pulmonary vasculature: The pulmonary trunk is normal in caliber. A small amount of residual chronic pulmonary embolus is again seen within the right lower lobe pulmonary artery on image #195. Heart: The patient is status post midline sternotomy. The heart is enlarged and without pericardial effusion. Lungs and pleural spaces: Emphysema is suspected. The trachea and central airways are clear. There are patchy tree-in-bud airspace opacities with groundglass consolidation identified at the right lung base. Mild tree-in-bud opacities are seen in the right upper lobe. A 6 mm right lower lobe nodule is seen on image #201, a 6 mm right lower lobe nodule seen image #196, and an 8 mm right lower lobe nodule is seen on image #204. No pleural effusion is identified. There are scattered calcified granulomas. Mediastinum: There is no mediastinal lymphadenopathy. Marilin: Clear. Axillae: There is no axillary lymphadenopathy. Upper abdomen: Dissection is seen extending to the superior mesenteric artery and the right renal artery. The partially visualized left kidney demonstrates foci of cortical scarring. A small hiatal hernia is noted. Skeletal structures: The skeletal structures are osteopenic. Degenerative change is noted in the shoulders and thoracic spine. No lytic or blastic bony lesions are seen. IMPRESSION: 1. There is unchanged ectasia/aneurysmal dilatation of the thoracic aorta as above with evidence of postoperative change at the aortic root. 2. Again seen is a large Type A aortic dissection as above. The true and false lumen are patent. 3. Dissection extends into the innominate artery and the left subclavian artery, as well as into the superior mesenteric artery and the right renal artery in the upper abdomen. See above discussion. 4. Cardiomegaly. Pericardial effusion has resolved from 06/27/2016. 5. A small amount of chronic pulmonary embolus is seen within the right lower lobar pulmonary artery. 6. There are tree-in-bud airspace opacities with ground glass consolidation in the right upper and right lower lobes as above. The appearance suggests an infectious/inflammatory pneumonitis. Clinical correlation will be required. 7. Suspect emphysema. 8. Additional findings as above. Electronically signed by: Julio Álvarez M.D. 08/28/2017 1:55 PM Dictated Date/Time: 08/28/2017 1:34 PM
== END | disposition home or self-care (01) ==
LOC: C.CTS 12:58
PROVIDERS: ATTEND Internal Medicine Cardiovascular Disease
DX: I71.01 Dissection of thoracic aorta (principal)

== ENCOUNTER 2022-10-11 16:04 | Inpatient (IN) ==
--- NOTE | 2022-10-11 16:34 | Emergency Department Note ---
Impression & Plan Travis-tachy syndrome, A-fib, Fatigue ED Provider Note Provider: Donnell Covarrubias MD DATE OF SERVICE: 10/11/2022 CHIEF COMPLAINT: Fatigue, heart monitor abnormal HISTORY OF PRESENT ILLNESS: Patient is a 67-year-old gentleman history of GERD, repair type a thoracic aortic dissection, CKD, DVT, and atrial fib/flutter presenting here today stating over the past week or 2 has been increasingly fa tigued. Has been dealing with COVID. Denies severe shortness of breath. Denies chest pain or any other pain at this time. States he feels just generally weak. Denies passing out or falls. Reports that he feels like he is getting over the COVID but still very fatigued. Received a call today about the heart monitor he had over the past several weeks that returned with abnormal results. Was referred here for further care. States he has been taking his home medication. Has had some swelling issues recently and has been taking furosemide which has helped some. PAST MEDICAL HISTORY: As noted above MEDICATIONS: Reviewed home medication SOCIAL HISTORY: Lives at home with PHYSICAL EXAM: GENERAL: alert and oriented in no acute distress on stretcher Head: normocephalic and atraumatic EYES: No injection, discharge or icterus. NECK: Trachea midline. ENT: Mucous membranes pink and moist. LUNGS: Airway patent. No retractions. Breath sounds clear with good air entry bilaterally. HEART: Irregular rate and rhythm. No chest wall tenderness ABDOMEN: Soft and non-tender, without guarding or rebound. SKIN: Acyanotic, warm, dry, without rashes EXTREMITIES: Without swelling, tenderness or deformity NEUROLOGICAL: No focal deficits. No aphasia. No facial droop or slurred speech. Ambulatory. EK bpm atrial fibrillation. No acute ST segment elevation or depression with a QTc of 458. CONTINUOUS CARDIAC MONITORING: was ordered and showed a heart rate of 70s-90s bpm in atrial fibrillation Patient's laboratory studies and imaging reviewed. Differential includes Infection, dehydration, metabolic abnormality, hypo/hyperglycemia, electrolyte disturbance, anemia, hypoxia, cardiac sources, intracerebral event/neurologic, as well as other pathologies. IMPRESSION/MEDICAL DECISION MAKING: Patient recently with COVID. Not severely hypoxic. Denies significant shortness of breath. Denies pain complaints. EKG obtained showing A-fib. Patient more referred here today by cardiology due to abnormal outpatient testing. Patient states he was called and told to come here. Reviewing the records from [facility] evidently had a ZIO heart monitor that showed tachybradycardia syndrome with significant cardiac pauses up to greater than 9 seconds. Patient denies syncope. Is on Coumadin and INR therapeutic here. No significant electrolyte abnormalities noted. Has been taking his home medications including this as well as metoprolol. In addition to basic labs, TSH and Lyme was added. Question if the COVID is affecting A-fib causing pauses. Test negative for COVID today. Chest x-ray questions a little bit of bilateral lower lobe airspace opacities in current setting possibly a slight amount of fluid but doubt a significant pneumonia given his vitals labs. Do not feel antibiotics are indicated at this point. Discussed with cardiology ZIO monitor results and possible further observation here given the significant pauses. Discussed with the hospitalist this plan. Patient was agreeable with the plan to stay for further cardiac monitoring and evaluation. DIAGNOSIS: Tachybradycardia syndrome, chronic A-fib DISPOSITION: Hospitalist will evaluate Patient was agreeable with this plan. 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 Chronic pulmonary embolism Dissecting aneurysm of thoracic aorta, Taj type A Femoral artery aneurysm GERD without esophagitis Hyperlipidemia Multiple pulmonary nodules Pulmonary emphysema Surgical History (Updated 08/10/19 @ 12:05 by Raquel Sands) History of dissecting abdominal aortic aneurysm repair History of repair of right rotator cuff History of umbilical hernia repair S/P thyroidectomy Social History (Updated 08/10/19 @ 12:07 by Raquel Sands) Smoking Status: Former smoker (QUIT 05/2016, AGES [age]) Cigarettes Per Day: 20-30; Hx Alcohol Use: No Hx Substance Use: No Preferred Language: Occitan Communication Ability: Effective marital status: Current Living Situation: Spouse 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, 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 Physical Activity Frequency: 3-4 Times per Week Allergies Allergies Allergy/AdvReac Type Severity Reaction Status Date / Time No Known Allergies Allergy Unknown Verified 10/11/22 17:40 Home Meds Home Medications Medication Instructions Recorded Confirmed acetaminophen 325 mg tablet 325 - 650 mg PO Q4H PRN PAIN/FEVER 12/08/18 10/11/22 atorvastatin 20 mg tablet 20 mg PO HS 12/08/18 10/11/22 aspirin 81 mg tablet,delayed 81 mg PO DAILY #90 tabs 01/28/20 10/11/22 release metoprolol succinate 100 mg 100 mg PO DAILY #180 tabs 01/28/20 10/11/22 tablet,extended release 24 hr famotidine 20 mg tablet 20 mg PO BID PRN 10/11/22 10/11/22 HEARTBURN/INDIGESTION furosemide 20 mg tablet 40 mg PO QAM 10/11/22 10/11/22 levothyroxine 200 mcg tablet 200 mcg PO DAILYBB 10/11/22 10/11/22 lisinopril 20 mg tablet 20 mg PO DAILY 10/11/22 10/11/22 sildenafil 100 mg tablet 50 mg PO DAILY PRN Erectile 10/11/22 10/11/22 Dysfunction tamsulosin 0.4 mg capsule 0.4 mg PO HS 10/11/22 10/11/22 Previous Rx's Medication Instructions Recorded warfarin 10 mg tablet See Rx Instructions .Route 04/19/19 .COMPLEX #90 tabs Results & Data (ED) Vital Signs Vital Signs - 24 hr 10/11/22 16:08 10/11/22 16:35 10/11/22 16:35 Temperature 36.8 C Temperature Source Temporal Artery Scan Pulse Rate 85 Pulse Rate [Apical] 81 Respiratory Rate 18 18 Respiratory Effort / Characteristics Non-Labored Respiratory Depth Normal Respiratory Pattern Regular Blood Pressure 157/80 H Blood Pressure [Left Arm] 163/100 H Blood Pressure Mean 105 Blood Pressure Mean [Left Arm] 121 Blood Pressure Position [Left Arm] Lying Pulse Oximetry 96 96 96 Oxygen Delivery Method Room Air Room Air Room Air Sepsis Recent Fever Within 48 Hours No Sepsis New/Unexplained Change in Mental Status No Sepsis Action Taken by Nursing No Action Required 10/11/22 16:22 Temperature Temperature Source Pulse Rate 92 H Pulse Rate [Apical] Respiratory Rate Respiratory Effort / Characteristics Respiratory Depth Respiratory Pattern Blood Pressure Blood Pressure [Left Arm] Blood Pressure Mean Blood Pressure Mean [Left Arm] Blood Pressure Position [Left Arm] Pulse Oximetry Oxygen Delivery Method Sepsis Recent Fever Within 48 Hours Sepsis New/Unexplained Change in Mental Status Sepsis Action Taken by Nursing Laboratory Data 10/11/22 16:27 10/11/22 16:27 Lab Results 10/11/22 10/11/22 10/11/22 Range/Units 16:27 16:27 16:27 WBC 6.28 (4.8-10.8) K/ul RBC 4.34 L (4.70-6.10) M/uL Hgb 13.7 L (14.0-18.0) g/dl Hct 39.2 L (42.0-52.0) % MCV 90.3 (80.0-100.0) fL MCH 31.6 (25.0-34.0) pg MCHC 34.9 (32.0-36.0) g/dL RDW Std Deviation 43.3 (36.4-46.3) fL RDW Coeff of Phu 13.1 (11.5-14.5) % Plt Count 256 (130-400) K/uL MPV 9.5 (9.4-12.4) fL Immature Gran % (Auto) 0.3 % Neut % (Auto) 61.5 % Lymph % (Auto) 26.6 % [place] % (Auto) 9.4 % Eos % (Auto) 1.9 % Baso % (Auto) 0.3 % Neut # (Auto) 3.86 (1.40-6.50) K/uL Lymph # (Auto) 1.67 (1.2-3.4) K/uL [place] # (Auto) 0.59 (0.11-0.59) K/uL Eos # (Auto) 0.12 (0-0.50) K/uL Baso # (Auto) 0.02 (0-0.2) K/uL Immature Gran # (Auto) 0.02 (0.01-0.20) K/uL PT 23.2 H (9.0-12.0) Seconds INR 2.2 H (0.9-1.1) APTT 32.6 H (21.0-31.0) Seconds PTT Ratio 1.2 Sodium 134 L (136-145) mmol/L Potassium 4.2 (3.5-5.1) mmol/L Chloride 98 (98-107) mmol/L Carbon Dioxide 28 (21-32) mmol/L Anion Gap 8 (3-11) BUN 20 (6-23) mg/dl Creatinine 1.12 (0.6-1.4) mg/dl Est Cr Clr Drug Dosing Not Reportable Est GFR ( Amer) 78.9 ml/min Est GFR (Non-Af Amer) 68.1 ml/min BUN/Creatinine Ratio 17.9 (10-20) Glucose 95 (70-99(Fasting)) mg/dl Calcium 8.5 L (8.6-10.3) mg/dl Total Bilirubin 0.7 (0.2-1.0) mg/dl AST 23 (13-39) U/L ALT 20 (7-52) U/L Alkaline Phosphatase 57 (34-104) U/L Troponin I High Sens 7.6 (0-20) pg/ml Total Protein 7.1 (6.0-8.3) gm/dl Albumin 3.9 (3.4-5.0) gm/dl Globulin 3.2 (2.5-4.0) gm/dl Albumin/Globulin Ratio 1.2 (0.9-2) Lipase 22 (11-82) U/L Lyme Disease IgG Ab (Negative) Lyme Disease IgM Ab (Negative) SARS-CoV-2, RNA, NAAT (NEGATIVE) 10/11/22 10/11/22 Range/Units 16:58 17:23 WBC (4.8-10.8) K/ul RBC (4.70-6.10) M/uL Hgb (14.0-18.0) g/dl Hct (42.0-52.0) % MCV (80.0-100.0) fL MCH (25.0-34.0) pg MCHC (32.0-36.0) g/dL RDW Std Deviation (36.4-46.3) fL RDW Coeff of Phu (11.5-14.5) % Plt Count (130-400) K/uL MPV (9.4-12.4) fL Immature Gran % (Auto) % Neut % (Auto) % Lymph % (Auto) % [place] % (Auto) % Eos % (Auto) % Baso % (Auto) % Neut # (Auto) (1.40-6.50) K/uL Lymph # (Auto) (1.2-3.4) K/uL [place] # (Auto) (0.11-0.59) K/uL Eos # (Auto) (0-0.50) K/uL Baso # (Auto) (0-0.2) K/uL Immature Gran # (Auto) (0.01-0.20) K/uL PT (9.0-12.0) Seconds INR (0.9-1.1) APTT (21.0-31.0) Seconds PTT Ratio Sodium (136-145) mmol/L Potassium (3.5-5.1) mmol/L Chloride (98-107) mmol/L Carbon Dioxide (21-32) mmol/L Anion Gap (3-11) BUN (6-23) mg/dl Creatinine (0.6-1.4) mg/dl Est Cr Clr Drug Dosing Est GFR ( Amer) ml/min Est GFR (Non-Af Amer) ml/min BUN/Creatinine Ratio (10-20) Glucose (70-99(Fasting)) mg/dl Calcium (8.6-10.3) mg/dl Total Bilirubin (0.2-1.0) mg/dl AST (13-39) U/L ALT (7-52) U/L Alkaline Phosphatase (34-104) U/L Troponin I High Sens (0-20) pg/ml Total Protein (6.0-8.3) gm/dl Albumin (3.4-5.0) gm/dl Globulin (2.5-4.0) gm/dl Albumin/Globulin Ratio (0.9-2) Lipase (11-82) U/L Lyme Disease IgG Ab Negative (Negative) Lyme Disease IgM Ab Negative (Negative) SARS-CoV-2, RNA, NAAT NEGATIVE (NEGATIVE) Imaging Data Radiologist's Impression: Chest X-Ray 10/11/22 16:22 XR chest 1V portable CLINICAL HISTORY: fatigue TECHNIQUE: Single frontal radiograph of the chest was obtained. Comparison: Comparison is made to chest radiograph 06/27/2016 FINDINGS: Median sternotomy wires are unchanged. Cardiomegaly is noted. Bilateral lower lung predominant airspace opacities are seen. No evidence of pleural effusion or pneumothorax. IMPRESSION: Bilateral lower lung predominant airspace opacities which may represent atelectasis, pneumonia, and/or aspiration. Stable cardiomegaly. ACT 112: Negative or not required by law. Electronically signed by: Javy Modi M.D. 10/11/2022 6:16 PM Discharge Plan Visit Data Chief Complaint: Cardiac Assessment Stated Complaint: WEAKNESS ED Provider: Donnell Covarrubias Discharge Problem: Travis-tachy syndrome, A-fib, Fatigue Patient Disposition: Being Evaluated by Hospitalist Forms Stand Alone Forms: My [facility] Prescriptions Prescriptions: No Action warfarin 10 mg tablet See Rx Instructions .ROUTE .COMPLEX Qty: 90 1RF Dose Instruction: TAKE 1 TABLET BY MOUTH EVERY DAY DIRECTED Rx Instructions: TAKES 10 MG ON FRIDAY & FRIDAY MORNINGS. THEN 5 MG ON FRI, , FRI, FRI & SAT. MORNINGS acetaminophen 325 mg tablet 325 - 650 mg PO Q4H PRN (Reason: PAIN/FEVER) Patient Comments: 1-2 tablets PO Q4H PRN; atorvastatin 20 mg tablet 20 mg PO HS aspirin 81 mg tablet,delayed release (DR/EC) 81 mg PO DAILY Qty: 90 metoprolol succinate 100 mg tablet extended release 24 hr 100 mg PO DAILY Qty: 180 lisinopril 20 mg Tablet 20 mg PO DAILY sildenafil 100 mg Tablet 50 mg PO DAILY PRN (Reason: Erectile Dysfunction) Rx Instructions: administer 30 minutes to 4 hours before activity tamsulosin 0.4 mg Capsule 0.4 mg PO HS furosemide 20 mg tablet 40 mg PO QAM famotidine 20 mg tablet 20 mg PO BID PRN (Reason: HEARTBURN/INDIGESTION) levothyroxine 200 mcg tablet 200 mcg PO DAILYBB Referrals Referrals: Bradford Chamberlain MD [Primary Care Provider] - A-fib Qualifiers: Atrial fibrillation type: unspecified chronic Qualified Code(s): I48.20 - Chronic atrial fibrillation, unspecified
[2022-10-11 16:46] LABS: Basophils # (auto) 0.02 K/uL (0-0.2); Basophils % (auto) 0.3 %; Eosinophils # (auto) 0.12 K/uL (0-0.50); Eosinophils % (auto) 1.9 %; Hematocrit (blood only) 39.2 % (42.0-52.0); Hemoglobin 13.7 g/dl (14.0-18.0); Immature Granulocytes # (auto) 0.02 K/uL (0.01-0.20); Immature Granulocytes % (auto) 0.3 %; Lymphocytes # (auto) 1.67 K/uL (1.2-3.4); Lymphocytes % (auto) 26.6 %; Mean Corpuscular Hemoglobin 31.6 pg (25.0-34.0); Mean Corpuscular Hgb Conc 34.9 g/dL (32.0-36.0); Mean Corpuscular Volume 90.3 fL (80.0-100.0); Mean Platelet Volume 9.5 fL (9.4-12.4); Monocytes # (auto) 0.59 K/uL (0.11-0.59); Monocytes % (auto) 9.4 %; Neutrophils # (auto) 3.86 K/uL (1.40-6.50); Neutrophils % (auto) 61.5 %; Platelet Count 256 K/uL (130-400); RDW Coefficient of Variation 13.1 % (11.5-14.5); RDW Standard Deviation 43.3 fL (36.4-46.3); Red Blood Count 4.34 M/uL (4.70-6.10); White Blood Count 6.28 K/ul (4.8-10.8)
[2022-10-11 17:03] LABS: Alanine Aminotransferase 20 U/L (7-52); Albumin Globulin Ratio 1.2 (0.9-2); Albumin Level 3.9 gm/dl (3.4-5.0); Alkaline Phosphatase 57 U/L (34-104); Anion Gap 8 (3-11); Aspartate Aminotransferase 23 U/L (13-39); BUN Creatinine Ratio 17.9 (10-20); Bilirubin,Total 0.7 mg/dl (0.2-1.0); Blood Urea Nitrogen 20 mg/dl (6-23); Calcium 8.5 mg/dl (8.6-10.3); Carbon Dioxide 28 mmol/L (21-32); Chloride 98 mmol/L (98-107); Est GFR (African American) 78.9 ml/min; Est GFR (Non-African American) 68.1 ml/min; Globulin 3.2 gm/dl (2.5-4.0); Glucose 95 mg/dl (70-99(Fasting)); Lipase 22 U/L (11-82); Potassium 4.2 mmol/L (3.5-5.1); Sodium 134 mmol/L (136-145); Total Protein 7.1 gm/dl (6.0-8.3)
--- NOTE | 2022-10-11 17:07 | Cardiology Consultation ---
Date of Consultation October 11, 2022 Assessment & Plan (1) Travis-tachy syndrome: (2) A-fib: (3) Hypertension: Plan Patient with significant pauses on outpatient hospital monitor some lasting up to 9 seconds. During this time patient had also been diagnosed with COVID and taking Paxlovid. Now improved. Luckily he has not had any significant symptoms related to the tachybrady syndrome and most of these pauses occurred during presumed sleep. Atrial fibrillation was a recent diagnosis in August 2022, but duration was unknown. Monitor was only completed to evaluate for afib burden and assess HR's. He has been on chronic high dose metoprolol succinate 100 mg daily. Would hold metoprolol on admission. Await labs and electrolytes Update echo (ordered as outpatient but not done) Chest xray given recent COVID. Lyme titers ordered as patient recalls having an odd "bug bite" on his leg last month. Further recommendations pending review of labs, testing, hospital monitor, and evaluation with Dr. Butler . Likely will need pacemaker implantation. Case discussed with Dr. Butler I spent a total of 50 minutes on the date of service in preparation, delivery, and documentation of the care provided to this patient, excluding any time spent in the performance of separately billed services. Aminta Quiroga PA-C Department of Cardiology, [facility] This chart was completed in part utilizing Speech Voice Recognition Software. Grammatical errors, random word insertions, pronoun errors, and incomplete sentences are an occasional consequence of this system due to software limitations, ambient noise, and hardware issues. Any formal questions or concerns about the content, text, or information contained within the body of this dictation should be directly addressed to the provider for clarification. Supervising Physician Co-Signing Physician Notes Supervising Physician Attestation: I have personally performed a history and physical examination on the patient. I agree with the physician assistant purchasing manager's findings and plan as documented with the following additions. Subjective: Patient without subjective complaints with the exception of generalized fatigue in the setting of recent COVID illness. His symptoms with COVID more respiratory tract/cold symptoms, with chills, and mild diarrhea. He has been feeling better for about the last week. Exam: Cardiovascular: Irregular rhythm, no murmurs At the time of my assessment telemetry reveals rate controlled atrial fibrillation in the 80s Data: monitoring tech as noted above Assessment and Plan: -Persistent atrial fibrillation, pauses up to 9 seconds during anticipated hours of sleep, without syncope with monitor having been performed, patient was able with acute COVID -Spouse notes witnessed apnea event recently while sleeping. Consider checking nocturnal pulse ox. Lyme screen ordered for completeness. Monitor patient on telemetry. Update echocardiogram. Varun Butler, History of Present Illness Reason for Consultation: Tachybrady; Pauses on outpatient ZIO; Attending Physician: Dr. Butler History of Present Illness Patient is a complex 67 year old male, known to [facility], former patient of Dr. Boland. Most recently evaluated by MARK Manrique in August 2022. 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 he was asymptomatic. Already on anticoagulation(coumadin) for history of Factor 5 Leiden mutation and hsitory of DVT/PE. He was ordered to have outpatient ZIO monitor to assess afib burden and rate control. Metoprolol succinate 100 mg daily was continued. Echo was ordered but not yet completed. ZIO monitor results were obtained today demonstrating persistent A-fib with significant pauses, greater than 80 events in total and some pauses lasting greater than 9 seconds. Monitoring period was from 09/20/22 to 10/04/22. Most of these pauses occurred during the nighttime hours during presumed sleep from 1:00 AM to 5:30 AM. No symptoms were reported. On 09/25 patient developed severe cold symptoms and did home test for COVID which was positive. He contacted PCP office and was prescribed Paxlovid on 09/25 which he took and finished prescription during this time. Symptoms improved. He notes primary symptomd during this time was fatigue and feeling "sluggish'. He denies recent lightheadedness, dizziness, syncope or near syncope. no recent chest pain or SOB. He had "rash" on right ankle last month. [place] he had a bug bite. No known tick bites. No fever or chills. Patient was sent to ER for evaluation upon receiving ZIO results given significant pauses. He is resting in bed in ER feeling well. Denies acute complaints. BP is elevated. He is anxious about findings. He took medications this morning as usual. He denies history of TACHO but has never been tested. Allergies Allergy/AdvReac Type Severity Reaction Status Date / Time No Known Allergies Allergy Unknown Verified 10/11/22 17:40 Home Medications Medication Instructions Recorded Confirmed Type acetaminophen 325 mg tablet 325 - 650 mg PO Q4H PRN PAIN/FEVER 12/08/18 10/11/22 History atorvastatin 20 mg tablet 20 mg PO HS 12/08/18 10/11/22 History warfarin 10 mg tablet See Rx Instructions .Route 04/19/19 10/11/22 Rx .COMPLEX #90 tabs aspirin 81 mg tablet,delayed 81 mg PO DAILY #90 tabs 01/28/20 10/11/22 History release metoprolol succinate 100 mg 100 mg PO DAILY #180 tabs 01/28/20 10/11/22 History tablet,extended release 24 hr famotidine 20 mg tablet 20 mg PO BID PRN 10/11/22 10/11/22 History HEARTBURN/INDIGESTION furosemide 20 mg tablet 40 mg PO QAM 10/11/22 10/11/22 History levothyroxine 200 mcg tablet 200 mcg PO DAILYBB 10/11/22 10/11/22 History lisinopril 20 mg tablet 20 mg PO DAILY 10/11/22 10/11/22 History sildenafil 100 mg tablet 50 mg PO DAILY PRN Erectile 10/11/22 10/11/22 History Dysfunction tamsulosin 0.4 mg capsule 0.4 mg PO HS 10/11/22 10/11/22 History Patient History Medical History 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 Chronic pulmonary embolism Dissecting aneurysm of thoracic aorta, [place] type A Factor V Leiden mutation Femoral artery aneurysm GERD (gastroesophageal reflux disease) GERD without esophagitis H/O deep venous thrombosis Hyperlipidemia Multiple pulmonary nodules Post-surgical hypothyroidism Primary osteoarthritis of hip Pulmonary emphysema Spinal stenosis Surgical History History of dissecting abdominal aortic aneurysm repair History of repair of right rotator cuff History of umbilical hernia repair S/P thyroidectomy Family History Mother Sudden in her 40s Father Cancer Social History Smoking Status: Former smoker (QUIT 05/2016, AGES [age]) Cigarettes Per Day: 20-30; Hx Alcohol Use: No Hx Substance Use: No Preferred Language: Vietnamese Communication Ability: Effective marital status: Current Living Situation: Spouse 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, 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 Physical Activity Frequency: 3-4 Times per Week Review of Systems Review of Systems: All systems reviewed & are unremarkable except as noted in HPI & below Physical Exam Constitutional: WD/WN, vitals as above well nourished and average body habitus; no acute distress Respiratory: normal respiratory effort; no cough Auscultation: lungs clear to auscultation bilaterally Cardiovascular: Rate/Rhythm: + irregularly irregular Heart Sounds: no murmur Extremities: + edema (trace ankle and pretibial edema b/l) Gastrointestinal (Abdomen): normal bowel sounds, soft, nontender, no hepatosplenomegaly Skin: no rashes, warm and dry Neurologic: PERRL, EOMI, accommodation nl, no face palsy, no dysarthria Results & Data Vital Signs (Past 12 Hours) Vital Signs Temp Pulse Pulse Resp BP BP Pulse Ox 10/11/22 16:22 92 H 10/11/22 16:35 96 10/11/22 16:35 81 18 163/100 H 96 10/11/22 16:08 36.8 C 85 18 157/80 H 96 O2 Del Method 10/11/22 16:22 10/11/22 16:35 Room Air 10/11/22 16:35 Room Air 10/11/22 16:08 Room Air Laboratory Results Cardiac Enzymes 10/11/22 Range/Units 16:27 AST 23 (13-39) U/L Troponin I High Sens 7.6 (0-20) pg/ml Coagulation 10/11/22 Range/Units 16:27 PT 23.2 H (9.0-12.0) Seconds APTT 32.6 H (21.0-31.0) Seconds CBC 10/11/22 Range/Units 16:27 WBC 6.28 (4.8-10.8) K/ul RBC 4.34 L (4.70-6.10) M/uL Hgb 13.7 L (14.0-18.0) g/dl Hct 39.2 L (42.0-52.0) % Plt Count 256 (130-400) K/uL Neut # (Auto) 3.86 (1.40-6.50) K/uL Lymph # (Auto) 1.67 (1.2-3.4) K/uL [place] # (Auto) 0.59 (0.11-0.59) K/uL Eos # (Auto) 0.12 (0-0.50) K/uL Baso # (Auto) 0.02 (0-0.2) K/uL Comprehensive Metabolic Panel 10/11/22 Range/Units 16:27 Sodium 134 L (136-145) mmol/L Potassium 4.2 (3.5-5.1) mmol/L Chloride 98 (98-107) mmol/L Carbon Dioxide 28 (21-32) mmol/L BUN 20 (6-23) mg/dl Creatinine 1.12 (0.6-1.4) mg/dl Glucose 95 (70-99(Fasting)) mg/dl Calcium 8.5 L (8.6-10.3) mg/dl AST 23 (13-39) U/L ALT 20 (7-52) U/L Alkaline Phosphatase 57 (34-104) U/L Total Protein 7.1 (6.0-8.3) gm/dl Albumin 3.9 (3.4-5.0) gm/dl Diagnostic Findings Telemetry reviewed since admission - afib with controlled rates. HR in the 80's EKG reviewed: Afib with controlled rates, possible voltage criteria for LVH Outpatient ZIO monitor report reviewed: CONCLUSIONS: Duration: 13 days 20 hours Atrial Fibrillation occurred continuously (100% burden), ranging from 22- 166 bpm (avg of 80 bpm). 80 Pauses occurred, the longest lasting 9.3 secs (6 bpm). Isolated VEs were rare (<1.0%, 29247), VE Couplets were rare (<1.0%, 111), and VE Triplets were rare (<1.0%, 8). Ventricular Bigeminy and Trigeminy were present. MD notification criteria for Slow Atrial Fibrillation and Pauses met - report posted prior to notification per account request (LS). Atrial fibrillation with tachy-travis syndrome and frequent pauses recorded. The longest pause lasting 9.3 seconds without associated symptoms. Atrial fibrillation with slow ventricular response and significant pauses occurred between 0142 AM and 0516 AM. No symptoms were reported throughout the monitoring period. (2) A-fib Atrial fibrillation type: unspecified chronic Qualified Code(s): I48.20 - Chronic atrial fibrillation, unspecified
[2022-10-11 17:09] LABS: Troponin I High Sensitivity 7.6 pg/ml (0-20)
[2022-10-11 17:21] LABS: INR 2.2 (0.9-1.1); Partial Thromboplastin Ratio 1.2; Partial Thromboplastin Time 32.6 Seconds (21.0-31.0); Prothrombin Time 23.2 Seconds (9.0-12.0)
--- NOTE | 2022-10-11 18:17 | XRay Report ---
XR chest 1V portable CLINICAL HISTORY: fatigue TECHNIQUE: Single frontal radiograph of the chest was obtained. Comparison: Comparison is made to chest radiograph 06/27/2016 FINDINGS: Median sternotomy wires are unchanged. Cardiomegaly is noted. Bilateral lower lung predominant airspa ce opacities are seen. No evidence of pleural effusion or pneumothorax. IMPRESSION: Bilateral lower lung predominant airspace opacities which may represent atelectasis, pneumonia, and/o r aspiration. Stable cardiomegaly. ACT 112: Negative or not required by law. Electronically signed by: Javy Modi M.D. 10/11/2022 6:16 PM
[2022-10-11 18:19] LABS: Lyme Ab IgG w/WB Rflx Negative (Negative); Lyme Ab IgM w/WB Rflx Negative (Negative)
--- NOTE | 2022-10-11 19:31 | History & Physical Report ---
Date of Service October 11, 2022 Assessment & Plan (1) Travis-tachy syndrome: Plan: Results of outpatient zio patch revealing tachycardia with significant sinus pauses. Cardiology has evaluated him in the ER and recommends admission with possible pacemaker placement. Chronic high dose metoprolol (100mg daily) is being held. Repeat echo, monitor labs with electrolytes daily. EKG daily. Lyme titers pending. (2) Hypertension: Plan: Likely elevated based on the situation. No changes in home regimen. Continue Laix, lisinopril, and hold Toprol (3) A-fib: Plan: Persistent today with rate controlled. Holding metoprolol as above and cont warfarin. INR therapeutic. Monitor INR daily. (4) CKD (chronic kidney disease), stage III: Plan: chronic, stable and at baseline. Cont to monitor while admitted. (5) Prophylactic use of warfarin for venous thromboembolism (VTE): Plan: h/o FVL mutation with history of PE and DVT in the past. Now with paroxysmal afib. Cont warfarin with goal INR 2-3. Monitor INR daily. 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 The outpatient monitor revealed heart rates as high as 166 bpm wtih 80 pauses, the longest 9.3 seconds. 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 He has a history of paroxysmal atrial flutter s/p successful ablation in October 2016. Afib was recently noted now as of August 2022. He was recently infected with c ovid two weeks ago. The zio patch was originally ordered to assess the new onset afib. Today he is feeling sluggish and tired generally but better since recovering from recent covid infection. Denies fevers, chills, chest pain, SOB. His hip has chronic pain (right) and he is trying to et set up for a hip replacement. He takes tramadol/Tylenol for pain Allergies Allergy/AdvReac Type Severity Reaction Status Date / Time No Known Allergies Allergy Unknown Verified 10/11/22 17:40 Home Medications Medication Instructions Recorded Confirmed Type acetaminophen 325 mg tablet 325 - 650 mg PO Q4H PRN PAIN/FEVER 12/08/18 10/11/22 History atorvastatin 20 mg tablet 20 mg PO HS 12/08/18 10/11/22 History warfarin 10 mg tablet See Rx Instructions .Route 04/19/19 10/11/22 Rx .COMPLEX #90 tabs aspirin 81 mg tablet,delayed 81 mg PO DAILY #90 tabs 01/28/20 10/11/22 History release metoprolol succinate 100 mg 100 mg PO DAILY #180 tabs 01/28/20 10/11/22 History tablet,extended release 24 hr famotidine 20 mg tablet 20 mg PO BID PRN 10/11/22 10/11/22 History HEARTBURN/INDIGESTION furosemide 20 mg tablet 40 mg PO QAM 10/11/22 10/11/22 History levothyroxine 200 mcg tablet 200 mcg PO DAILYBB 10/11/22 10/11/22 History lisinopril 20 mg tablet 20 mg PO DAILY 10/11/22 10/11/22 History sildenafil 100 mg tablet 50 mg PO DAILY PRN Erectile 10/11/22 10/11/22 History Dysfunction tamsulosin 0.4 mg capsule 0.4 mg PO HS 10/11/22 10/11/22 History Past Med/Surg History Medical History 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 Chronic pulmonary embolism Dissecting aneurysm of thoracic aorta, [place] type A Factor V Leiden mutation Femoral artery aneurysm GERD (gastroesophageal reflux disease) GERD without esophagitis H/O deep venous thrombosis Hyperlipidemia Multiple pulmonary nodules Post-surgical hypothyroidism Primary osteoarthritis of hip Pulmonary emphysema Spinal stenosis Surgical History History of dissecting abdominal aortic aneurysm repair History of repair of right rotator cuff History of umbilical hernia repair S/P thyroidectomy Family History Mother Sudden in her 40s Father Cancer Social History Smoking Status: Former smoker (QUIT 05/2016, AGES [age]) Cigarettes Per Day: 20-30; Hx Alcohol Use: No Hx Substance Use: No Preferred Language: Romanian Communication Ability: Effective marital status: Current Living Situation: Spouse 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 Physical Exam 2 Physical Exam: CONSTITUTIONAL: WNWD, vitals as above, generally well-appearing, NAD EYES: normal conjunctivae, no scleral icterus ENT: external ear and nose normal, oropharynx clear, MMM NECK: trachea midline RESPIRATORY: clear to auscultation bilaterally, no crackles, rales or wheezes, normal respiratory effort CARDIOVASCULAR: irregular rate and irregular rhythm, 3/6 NANCIE in LSB, no gallops or rubs, no JVD, no peripheral edema CHEST: inspection of chest was normal GASTROINTESTINAL: soft, nontender, ND, no guarding MUSCULOSKELETAL: strength 5/5 throughout, head is normocephalic and atraumatic SKIN: warm and dry NEUROLOGIC: CN 2-12 grossly intact, no sensory deficit, normal cognition, normal speech, no tremor PSYCHIATRIC: alert cooperative and oriented to person, place and time. Euthymic mood, makes good eye contact, language grossly intact, recent and remote memory grossly intact. Results & Data Results & Data Vital Signs (Past 12 Hours) Vital Signs Temp Pulse Pulse Resp BP BP Pulse Ox 10/11/22 18:36 77 18 149/105 H 98 10/11/22 16:22 92 H 10/11/22 16:35 96 10/11/22 16:35 81 18 163/100 H 96 10/11/22 16:08 36.8 C 85 18 157/80 H 96 O2 Del Method 10/11/22 18:36 Room Air 10/11/22 16:22 10/11/22 16:35 Room Air 10/11/22 16:35 Room Air 10/11/22 16:08 Room Air Laboratory Results Short CBC 10/11/22 Range/Units 16:27 WBC 6.28 (4.8-10.8) K/ul Hgb 13.7 L (14.0-18.0) g/dl Hct 39.2 L (42.0-52.0) % Plt Count 256 (130-400) K/uL BMP 10/11/22 16:27 Sodium 134 L Potassium 4.2 Chloride 98 Carbon Dioxide 28 BUN 20 Creatinine 1.12 Glucose 95 Calcium 8.5 L Liver Function 10/11/22 Range/Units 16:27 Total Bilirubin 0.7 (0.2-1.0) mg/dl AST 23 (13-39) U/L ALT 20 (7-52) U/L Alkaline Phosphatase 57 (34-104) U/L Albumin 3.9 (3.4-5.0) gm/dl Diagnostic Findings Chest X-Ray 10/11/22 16:22 XR chest 1V portable CLINICAL HISTORY: fatigue TECHNIQUE: Single frontal radiograph of the chest was obtained. Comparison: Comparison is made to chest radiograph 06/27/2016 FINDINGS: Median sternotomy wires are unchanged. Cardiomegaly is noted. Bilateral lower lung predominant airspace opacities are seen. No evidence of pleural effusion or pneumothorax. IMPRESSION: Bilateral lower lung predominant airspace opacities which may represent atelectasis, pneumonia, and/or aspiration. Stable cardiomegaly. ACT 112: Negative or not required by law. Electronically signed by: Javy Modi M.D. 10/11/2022 6:16 PM Code Status & VTE Plan VTE Prophylaxis Plan VTE Prophylaxis will be ordered: Yes (3) A-fib Atrial fibrillation type: unspecified chronic Qualified Code(s): I48.20 - Chronic atrial fibrillation, unspecified
[2022-10-11] MEDS ORDERED: FAMOTIDINE 20 MG TAB PO PRN (21:56)
[2022-10-11] MEDS ORDERED: POLYETHYLENE (MIRALAX) 17 GM PACK PO PRN (21:56)
[2022-10-11] MEDS ORDERED: traMADol HCL 50 MG TABLET ONE (22:57)
[2022-10-11] MEDS ORDERED: ACETAMINOPHEN 500 MG TAB ONE (22:57)
[2022-10-11] MEDS: traMADol HCL 50 MG TABLET PO PRN (22:58)
[2022-10-11] MEDS: ACETAMINOPHEN 500 MG TAB PO SCH (22:58)
[2022-10-11] MEDS: ATORVASTATIN 20 MG TAB PO SCH (22:59)
[2022-10-11] MEDS: TAMSULOSIN HCL 0.4 MG CAP PO SCH (22:59)
[2022-10-12] MEDS: ACETAMINOPHEN 500 MG TAB PO SCH ×3 (05:56→21:45)
[2022-10-12] MEDS: LEVOTHYROXINE SODIUM 200 MCG TABLET PO SCH (05:57)
[2022-10-12 08:10] LABS: BUN Creatinine Ratio 17.3 (10-20); Calcium 8.6 mg/dl (8.6-10.3); Creatinine Clr Calc Pharmacy 101.8 ml/min; Est GFR (African American) 86.3 ml/min; Est GFR (Non-African American) 74.5 ml/min; Magnesium 1.8 mg/dl (1.7-2.4); Potassium 3.8 mmol/L (3.5-5.1)
[2022-10-12 08:19] LABS: INR 2.1 (0.9-1.1); Prothrombin Time 22.2 Seconds (9.0-12.0)
[2022-10-12] MEDS: lisinopril 20 MG TAB PO SCH (08:24)
[2022-10-12] MEDS: ASPIRIN 81 MG ECTAB PO SCH (08:24)
[2022-10-12] MEDS: FUROSEMIDE 40 MG TAB PO SCH (08:24)
[2022-10-12 08:54] LABS: Hematocrit (blood only) 37.8 % (42.0-52.0); Hemoglobin 12.8 g/dl (14.0-18.0); Mean Corpuscular Hemoglobin 31.5 pg (25.0-34.0); Mean Corpuscular Hgb Conc 33.9 g/dL (32.0-36.0); Mean Corpuscular Volume 93.1 fL (80.0-100.0); Mean Platelet Volume 9.9 fL (9.4-12.4); Platelet Count 214 K/uL (130-400); RDW Coefficient of Variation 13.2 % (11.5-14.5); RDW Standard Deviation 45.1 fL (36.4-46.3); Red Blood Count 4.06 M/uL (4.70-6.10); White Blood Count 4.82 K/ul (4.8-10.8)
--- NOTE | 2022-10-12 10:29 | Electrocardiogram Report ---
Test Reason : Blood Pressure : / mmHG Vent. Rate : 084 BPM Atrial Rate : 000 BPM P-R Int : 000 ms QRS Dur : 094 ms QT Int : 388 ms P-R-T Axes : 000 -15 067 degrees QTc Int : 458 ms Atrial fibrillation Minimal voltage criteria for LVH, may be normal variant ( Andrey product ) Abnormal ECG When compared with ECG of 12-NOV-2016 14:18, Atrial fibrillation has replaced Sinus rhythm Questionable change in QRS axis Nonspecific T wave abnormality, improved in Lateral leads QT has shortened Confirmed by Rodrick Chisholm ([id number]) on 10/12/2022 10:29:34 AM Referred By: REFERRED SELF Confirmed By:Rodrick Chisholm
--- NOTE | 2022-10-12 10:31 | Cardiology Progress Note ---
Date of Service October 12, 2022 Assessment & Plan (1) Travis-tachy syndrome: (2) A-fib: (3) Hypertension: Plan The patient is in a rate controlled atrial fibrillation. In the early childhood hours he had additional pauses over 3 seconds. I suspect the patient has a component of sleep apnea and I will order a nocturnal pulse ox study. Admission and Anticipated Discharge Date Admission Date: October 11, 2022 Subjective The patient has no complaints today. Review of Systems Review of Systems: Review of Systems: See HPI for pertinent positives. All other 10 point review of systems are negative. Physical Exam Physical Exam: General: no acute distress and stated age Head: normocephalic, no masses, lesions, tenderness or abnormalities Eyes: conjunctiva are pink and non-injected, sclera clear Neck: supple, no adenopathy, no bruits, normal jugular venous pulse, no hepatojugular reflux Chest: normal shape and normal respiratory effort Lungs: clear to auscultation and percussion Cardiac Exam: - regular rate & rhythm, no murmurs gallops or rubs - normal S1, normal S2 Pulses: 2(+) throughout Abdomen: abdomen soft, non-tender, no abnormal masses and no hepatosplenomegaly Musculoskeletal: no gait disturbance, no joint inflammation, no deforming arthritis Extremities: no edema and no cyanosis Neuro: grossly normal exam Results & Data Vital Signs (Past 12 Hours) Vital Signs Temp Pulse Pulse Pulse Resp BP Pulse Ox 10/12/22 07:48 36.5 C 74 16 135/77 97 10/12/22 07:14 54 L 10/12/22 04:45 10/12/22 02:41 36.6 C 71 16 149/77 H 95 10/12/22 01:45 57 L 10/11/22 22:44 36.5 C 70 17 163/91 H 96 Pulse Ox O2 Del Method O2 Del Method 10/12/22 07:48 Room Air 10/12/22 07:14 10/12/22 04:45 95 Room Air 10/12/22 02:41 Room Air 10/12/22 01:45 91 Room Air 10/11/22 22:44 Room Air Laboratory Results Laboratory Results - last 24 hr 10/11/22 10/11/22 10/11/22 16:27 16:27 16:27 WBC 6.28 RBC 4.34 L Hgb 13.7 L Hct 39.2 L MCV 90.3 MCH 31.6 MCHC 34.9 RDW Std Deviation 43.3 RDW Coeff of Phu 13.1 Plt Count 256 MPV 9.5 Immature Gran % (Auto) 0.3 Neut % (Auto) 61.5 Lymph % (Auto) 26.6 Young % (Auto) 9.4 Eos % (Auto) 1.9 Baso % (Auto) 0.3 Neut # (Auto) 3.86 Lymph # (Auto) 1.67 Young # (Auto) 0.59 Eos # (Auto) 0.12 Baso # (Auto) 0.02 Immature Gran # (Auto) 0.02 PT 23.2 H INR 2.2 H APTT 32.6 H PTT Ratio 1.2 Sodium 134 L Potassium 4.2 Chloride 98 Carbon Dioxide 28 Anion Gap 8 BUN 20 Creatinine 1.12 Est Cr Clr Drug Dosing Not Reportable Est GFR ( Amer) 78.9 Est GFR (Non-Af Amer) 68.1 BUN/Creatinine Ratio 17.9 Glucose 95 Calcium 8.5 L Magnesium Total Bilirubin 0.7 AST 23 ALT 20 Alkaline Phosphatase 57 Troponin I High Sens 7.6 Total Protein 7.1 Albumin 3.9 Globulin 3.2 Albumin/Globulin Ratio 1.2 Lipase 22 TSH Lyme Disease IgG Ab Lyme Disease IgM Ab SARS-CoV-2, RNA, NAAT 10/11/22 10/11/22 10/11/22 16:58 17:23 17:23 WBC RBC Hgb Hct MCV MCH MCHC RDW Std Deviation RDW Coeff of Phu Plt Count MPV Immature Gran % (Auto) Neut % (Auto) Lymph % (Auto) Young % (Auto) Eos % (Auto) Baso % (Auto) Neut # (Auto) Lymph # (Auto) Young # (Auto) Eos # (Auto) Baso # (Auto) Immature Gran # (Auto) PT INR APTT PTT Ratio Sodium Potassium Chloride Carbon Dioxide Anion Gap BUN Creatinine Est Cr Clr Drug Dosing Est GFR ( Amer) Est GFR (Non-Af Amer) BUN/Creatinine Ratio Glucose Calcium Magnesium Total Bilirubin AST ALT Alkaline Phosphatase Troponin I High Sens Total Protein Albumin Globulin Albumin/Globulin Ratio Lipase TSH 0.476 Lyme Disease IgG Ab Negative Lyme Disease IgM Ab Negative SARS-CoV-2, RNA, NAAT NEGATIVE 10/12/22 10/12/2223 07:28 07:28 07:28 WBC 4.82 RBC 4.06 L Hgb 12.8 L Hct 37.8 L MCV 93.1 MCH 31.5 MCHC 33.9 RDW Std Deviation 45.1 RDW Coeff of Phu 13.2 Plt Count 214 MPV 9.9 Immature Gran % (Auto) Neut % (Auto) Lymph % (Auto) Young % (Auto) Eos % (Auto) Baso % (Auto) Neut # (Auto) Lymph # (Auto) Young # (Auto) Eos # (Auto) Baso # (Auto) Immature Gran # (Auto) PT 22.2 H INR 2.1 H APTT PTT Ratio Sodium 135 L Potassium 3.8 Chloride 99 Carbon Dioxide 32 Anion Gap 4 BUN 18 Creatinine 1.04 Est Cr Clr Drug Dosing 101.8 Est GFR ( Amer) 86.3 Est GFR (Non-Af Amer) 74.5 BUN/Creatinine Ratio 17.3 Glucose 110 H Calcium 8.6 Magnesium 1.8 Total Bilirubin AST ALT Alkaline Phosphatase Troponin I High Sens Total Protein Albumin Globulin Albumin/Globulin Ratio Lipase TSH Lyme Disease IgG Ab Lyme Disease IgM Ab SARS-CoV-2, RNA, NAAT Medications Administered Current Inpatient Medications Acetaminophen (Acetaminophen 500 Mg Tab) 1,000 mg PO Q8H [facility] Stop: 11/10/22 21:55 Last Admin: 10/12/22 05:56 Dose: Not Given Aspirin (Aspirin 81 Mg Ectab) 81 mg PO DAILY [facility] Stop: 11/11/22 08:59 Last Admin: 10/12/22 08:24 Dose: 81 mg Atorvastatin Calcium (Atorvastatin 20 Mg Tab) 20 mg PO HS [facility] Stop: 11/10/22 21:55 Last Admin: 10/11/22 22:59 Dose: 20 mg Famotidine (Famotidine 20 Mg Tab) 20 mg PO BID PRN PRN Reason: HEARTBURN/INDIGESTION Stop: 11/10/22 21:55 Furosemide (Furosemide 40 Mg Tab) 40 mg PO QAM [facility] Stop: 11/11/22 08:59 Last Admin: 10/12/22 08:24 Dose: 40 mg Levothyroxine Sodium (Levothyroxine Sodium 200 Mcg Tablet) 200 mcg PO DAILYBB [facility] Stop: 11/11/22 06:29 Last Admin: 10/12/22 05:57 Dose: 200 mcg Lisinopril (Lisinopril 20 Mg Tab) 20 mg PO DAILY [facility] Stop: 11/11/22 08:59 Last Admin: 10/12/22 08:24 Dose: 20 mg Polyethylene Glycol (Polyethylene (Miralax) 17 Gm Pack) 17 gm PO DAILY PRN PRN Reason: Constipation Stop: 11/10/22 21:55 Tamsulosin HCl (Tamsulosin Hcl 0.4 Mg Cap) 0.4 mg PO HS [facility] Stop: 11/10/22 21:55 Last Admin: 10/11/22 22:59 Dose: 0.4 mg Tramadol HCl (Tramadol Hcl 50 Mg Tablet) 100 mg PO Q6H PRN PRN Reason: severe pain Stop: 11/10/22 21:55 Last Admin: 10/11/22 22:58 Dose: 100 mg Warfarin Sodium (Warfarin Sod 10 Mg Tab) 10 mg PO SuTh@1600 [facility] Stop: 11/12/22 15:59 Warfarin Sodium (Warfarin Sod 5 Mg Tab) 5 mg PO MoTuWeFrSa@1600 [facility] Stop: 11/11/22 15:59 (2) A-fib Atrial fibrillation type: unspecified chronic Qualified Code(s): I48.20 - Chronic atrial fibrillation, unspecified
--- NOTE | 2022-10-12 10:43 | Electrocardiogram Report ---
Test Reason : Blood Pressure : / mmHG Vent. Rate : 069 BPM Atrial Rate : 234 BPM P-R Int : 000 ms QRS Dur : 094 ms QT Int : 422 ms P-R-T Axes : 000 037 046 degrees QTc Int : 452 ms Atrial fibrillation Abnormal ECG When compared with ECG of 11-OCT-2022 16:29, (unconfirmed) No significant change was found Confirmed by Rodrick Chisholm ([id number]) on 10/12/2022 10:42:46 AM Referred By: REFERRED SELF Confirmed By:Rodrick Chisholm
[2022-10-12] MEDS: traMADol HCL 50 MG TABLET PO PRN ×2 (13:50→21:44)
--- NOTE | 2022-10-12 15:59 | Hospitalist Progress Note ---
Date of Service October 12, 2022 Assessment & Plan (1) Travis-tachy syndrome: Plan Six 7-year-old male with PMH of aortic aneurysm repair presented to the ED 10/11 upon referral from his outpatient cigarette tipper after abnormal Zio patch results. Outpatient monitor revealed heart rate as high as 166 bpm with 80 pauses, the longest 9.3 seconds. He is being managed for the following: Travis-tachy syndrome: Results of outpatient zio patch revealing tachycardia with significant sinus pauses. Cardiology has evaluated him in the ER and recommends admission with possible pacemaker placement. Chronic high dose metoprolol (100mg daily) is on hold. 10/12 ECHO: EF 60-65 %, mild MR, RV and LV systolic fxn is normal. Monitor labs with electrolytes daily. EKG daily. Lyme titers pending. Cardio on board, appreciate recs. Will benefit from OP PSG. Hypertension: Likely elevated based on the situation. No changes in home regimen. Continue Laix, lisinopril, and hold Toprol A-fib: rate controlled. Holding metoprolol as above and cont warfarin. INR therapeutic. Monitor INR daily. c/w tele monitoring. CKD (chronic kidney disease), stage III: chronic, stable and at baseline. Cont to monitor while admitted. 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 Now with paroxysmal afib. Cont warfarin with goal INR 2-3. Monitor INR daily.VTE): DVT prophylaxis: Warfarin CODE STATUS: Full Code dispo-PCU Admission and Anticipated Discharge Date Admission Date: October 11, 2022 Subjective Patient seen and examined at bedside as a follow-up of bradycardia tachycardia syndrome. Patient was sitting up in bed, on room air, NAD, family members at bedside, den ies any new acute events overnight, reports eating okay and moving bowels okay, denies fever/chills/headache/dizziness/chest pain/palpitation/swelling/other review of symptoms. Physical Exam Physical Exam: GENERAL: Alert and oriented x3. NAD, on RA. HEENT: No pallor, no icterus. Pupils equal, round and reactive to light. Oral mucosa moist. NECK: No JVD, no neck masses. HEART: S1 and S2 heard. irregular rate and rhythm. No murmur, no gallop. RESPIRATORY SYSTEM: Normal AP diameter. No accessory muscle use. No wheezing, no crackles. ABDOMEN: Soft, bowel sounds present, nontender, no distention. CENTRAL NERVOUS SYSTEM: No facial droop. Speech is clear. Obeys simple commands. Moves extremities. EXTREMITIES: No edema, no erythema seen. Results & Data Results & Data Vital Signs (Past 12 Hours) Vital Signs Temp Pulse Pulse Resp BP Pulse Ox Pulse Ox 10/12/22 14:59 82 10/12/22 11:39 36.7 C 79 18 125/74 97 10/12/22 07:48 36.5 C 74 16 135/77 97 10/12/22 07:14 54 L 10/12/22 04:45 95 O2 Del Method O2 Del Method 10/12/22 14:59 10/12/22 11:39 Room Air 10/12/22 07:48 Room Air 10/12/22 07:14 10/12/22 04:45 Room Air
[2022-10-12] MEDS ORDERED: WARFARIN SOD 5 MG TAB PO SCH (16:00)
[2022-10-12] MEDS: TAMSULOSIN HCL 0.4 MG CAP PO SCH (21:44)
[2022-10-12] MEDS: ATORVASTATIN 20 MG TAB PO SCH (21:45)
[2022-10-13] MEDS: ACETAMINOPHEN 500 MG TAB PO SCH ×3 (06:13→20:22)
[2022-10-13] MEDS: LEVOTHYROXINE SODIUM 200 MCG TABLET PO SCH (06:14)
[2022-10-13 06:38] LABS: Hematocrit (blood only) 38.9 % (42.0-52.0); Hemoglobin 13.1 g/dl (14.0-18.0); Mean Corpuscular Hemoglobin 31.4 pg (25.0-34.0); Mean Corpuscular Hgb Conc 33.7 g/dL (32.0-36.0); Mean Corpuscular Volume 93.3 fL (80.0-100.0); Mean Platelet Volume 9.6 fL (9.4-12.4); Platelet Count 215 K/uL (130-400); RDW Coefficient of Variation 13.2 % (11.5-14.5); RDW Standard Deviation 44.8 fL (36.4-46.3); Red Blood Count 4.17 M/uL (4.70-6.10); White Blood Count 4.89 K/ul (4.8-10.8)
[2022-10-13 06:59] LABS: BUN Creatinine Ratio 20.7 (10-20); Calcium 8.3 mg/dl (8.6-10.3); Creatinine Clr Calc Pharmacy 95.4 ml/min; Est GFR (African American) 79.8 ml/min; Est GFR (Non-African American) 68.8 ml/min; Magnesium 1.7 mg/dl (1.7-2.4); Phosphorus 3.8 mg/dl (2.5-4.9); Potassium 3.9 mmol/L (3.5-5.1)
[2022-10-13 07:29] LABS: INR 2.1 (0.9-1.1); Prothrombin Time 21.5 Seconds (9.0-12.0)
[2022-10-13] MEDS: lisinopril 20 MG TAB PO SCH (08:48)
[2022-10-13] MEDS: FUROSEMIDE 40 MG TAB PO SCH (08:48)
[2022-10-13] MEDS: ASPIRIN 81 MG ECTAB PO SCH (08:48)
[2022-10-13] MEDS: traMADol HCL 50 MG TABLET PO PRN (10:34)
--- NOTE | 2022-10-13 11:17 | Cardiology Progress Note ---
Date of Service October 13, 2022 Assessment & Plan (1) Travis-tachy syndrome: (2) A-fib: (3) Hypertension: Plan The patient's pulse oximeter through the night did have some episodes of desaturation but not a lot. And not associated to significant bradycardia. He did this morning he had rates in the 30 bpm range. I think the patient may benefit from a pacemaker. Unfortunately, no event staff is available at this time. In anticipation I would hold his warfarin for now. When the INR is below 2 then start heparin. Continue on telemetry. Admission and Anticipated Discharge Date Admission Date: October 11, 2022 Subjective The patient has no new complaints today. He denies dizziness or lightheadedness. Review of Systems Review of Systems: Review of Systems: See HPI for pertinent positives. All other 10 point review of systems are negative. Physical Exam Physical Exam: General: no acute distress and stated age Head: normocephalic, no masses, lesions, tenderness or abnormalities Eyes: conjunctiva are pink and non-injected, sclera clear Neck: supple, no adenopathy, no bruits, normal jugular venous pulse, no hepatojugular reflux Chest: normal shape and normal respiratory effort Lungs: clear to auscultation and percussion Cardiac Exam: - irregular rate & rhythm, no murmurs gallops or rubs - normal S1, normal S2 Pulses: 2(+) throughout Abdomen: abdomen soft, non-tender, no abnormal masses and no hepatosplenomegaly Musculoskeletal: no gait disturbance, no joint inflammation, no deforming arthritis Extremities: no edema and no cyanosis Neuro: grossly normal exam Results & Data Vital Signs (Past 12 Hours) Vital Signs Temp Pulse Pulse Pulse Resp BP Pulse Ox 10/13/22 08:00 36.7 C 88 18 129/52 L 97 10/13/22 07:22 78 10/13/22 03:50 79 10/13/22 02:32 36.6 C 78 16 125/68 94 Pulse Ox O2 Del Method O2 Del Method 10/13/22 08:00 Room Air 10/13/22 07:22 10/13/22 03:50 90 Room Air 10/13/22 02:32 Room Air Laboratory Results Laboratory Results - last 24 hr 10/13/22 10/13/22 10/13/22 05:59 05:59 05:59 WBC 4.89 RBC 4.17 L Hgb 13.1 L Hct 38.9 L MCV 93.3 MCH 31.4 MCHC 33.7 RDW Std Deviation 44.8 RDW Coeff of Phu 13.2 Plt Count 215 MPV 9.6 PT 21.5 H INR 2.1 H Sodium 132 L Potassium 3.9 Chloride 99 Carbon Dioxide 28 Anion Gap 5 BUN 23 Creatinine 1.11 Est Cr Clr Drug Dosing 95.4 Est GFR ( Amer) 79.8 Est GFR (Non-Af Amer) 68.8 BUN/Creatinine Ratio 20.7 H Glucose 112 H Calcium 8.3 L Phosphorus 3.8 Magnesium 1.7 Medications Administered Current Inpatient Medications Acetaminophen (Acetaminophen 500 Mg Tab) 1,000 mg PO Q8H [facility] Stop: 11/10/22 21:55 Last Admin: 10/13/22 06:13 Dose: Not Given Aspirin (Aspirin 81 Mg Ectab) 81 mg PO DAILY [facility] Stop: 11/11/22 08:59 Last Admin: 10/13/22 08:48 Dose: 81 mg Atorvastatin Calcium (Atorvastatin 20 Mg Tab) 20 mg PO HS [facility] Stop: 11/10/22 21:55 Last Admin: 10/12/22 21:45 Dose: 20 mg Famotidine (Famotidine 20 Mg Tab) 20 mg PO BID PRN PRN Reason: HEARTBURN/INDIGESTION Stop: 11/10/22 21:55 Furosemide (Furosemide 40 Mg Tab) 40 mg PO QAM [facility] Stop: 11/11/22 08:59 Last Admin: 10/13/22 08:48 Dose: 40 mg Levothyroxine Sodium (Levothyroxine Sodium 200 Mcg Tablet) 200 mcg PO DAILYBB [facility] Stop: 11/11/22 06:29 Last Admin: 10/13/22 06:14 Dose: 200 mcg Lisinopril (Lisinopril 20 Mg Tab) 20 mg PO DAILY [facility] Stop: 11/11/22 08:59 Last Admin: 10/13/22 08:48 Dose: 20 mg Polyethylene Glycol (Polyethylene (Miralax) 17 Gm Pack) 17 gm PO DAILY PRN PRN Reason: Constipation Stop: 11/10/22 21:55 Tamsulosin HCl (Tamsulosin Hcl 0.4 Mg Cap) 0.4 mg PO HS [facility] Stop: 11/10/22 21:55 Last Admin: 10/12/22 21:44 Dose: 0.4 mg Tramadol HCl (Tramadol Hcl 50 Mg Tablet) 100 mg PO Q6H PRN PRN Reason: severe pain Stop: 11/10/22 21:55 Last Admin: 10/13/22 10:34 Dose: 100 mg Warfarin Sodium (Warfarin Sod 10 Mg Tab) 10 mg PO SuTh@1600 [facility] Stop: 11/12/22 15:59 Warfarin Sodium (Warfarin Sod 5 Mg Tab) 5 mg PO MoTuWeFrSa@1600 [facility] Stop: 11/11/22 15:59 Last Admin: 10/12/22 16:08 Dose: 5 mg (2) A-fib Atrial fibrillation type: unspecified chronic Qualified Code(s): I48.20 - Chronic atrial fibrillation, unspecified
--- NOTE | 2022-10-13 11:18 | Electrocardiogram Report ---
Test Reason : Blood Pressure : / mmHG Vent. Rate : 085 BPM Atrial Rate : 096 BPM P-R Int : 000 ms QRS Dur : 096 ms QT Int : 394 ms P-R-T Axes : 000 040 052 degrees QTc Int : 468 ms Atrial fibrillation Abnormal ECG When compared with ECG of 12-OCT-2022 05:39, No significant change was found Confirmed by Rodrick Chisholm ([id number]) on 10/13/2022 11:18:05 AM Referred By: REFERRED SELF Confirmed By:Rodrick Chisholm
--- NOTE | 2022-10-13 15:17 | Hospitalist Progress Note ---
Date of Service October 13, 2022 Assessment & Plan (1) Travis-tachy syndrome: Plan Six 7-year-old male with PMH of aortic aneurysm repair presented to the ED 10/11 upon referral from his outpatient systems management consultant after abnormal Zio patch results. Outpatient monitor revealed heart rate as high as 166 bpm with 80 pauses, the longest 9.3 seconds. He is being managed for the following: Travis-tachy syndrome: Results of outpatient zio patch revealing tachycardia with significant sinus pauses. Cardiology has evaluated him in the ER and recommends admission with possible pacemaker placement. Chronic high dose metoprolol (100mg daily) is on hold. 10/12 ECHO: EF 60-65 %, mild MR, RV and LV systolic fxn is normal. Monitor labs with electrolytes daily. EKG daily. Lyme screen negative. Cardio on board, appreciate recs. Will benefit from OP PSG. Coumadin on hold, inr daily, hep drip when INR below 2.0. Awaiting EP eval. Hypertension: Likely elevated based on the situation. No changes in home regimen. Continue Laix, lisinopril, and hold Toprol A-fib: rate controlled. Holding metoprolol as above and cont anticoagulation as above. Monitor INR daily. c/w tele monitoring. CKD (chronic kidney disease), stage III: chronic, stable and at baseline. Cont to monitor while admitted. 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 Now with paroxysmal afib. Cw/ anticoagulation as above. Monitor INR daily. DVT prophylaxis: Warfarin held, monitor inr daily, hep drip when inr <2.0 CODE STATUS: Full Code dispo-PCU, awaiting ep eval, pacer. Admission and Anticipated Discharge Date Admission Date: October 11, 2022 Subjective Patient seen and examined at bedside as a follow-up of bradycardia tachycardia syndrome. Patient was sitting up in bed, on room air, NAD, family members at bedside, denies any new acute events overnight, reports eating okay and moving bowels okay, denies fever/chills/headache/dizziness/chest pain/palpitation/swelling/other review of symptoms. Physical Exam Physical Exam: GENERAL: Alert and oriented x3. NAD, on RA. HEENT: No pallor, no icterus. Pupils equal, round and reactive to light. Oral mucosa moist. NECK: No JVD, no neck masses. HEART: S1 and S2 heard. irregular rate and rhythm. No murmur, no gallop. RESPIRATORY SYSTEM: Normal AP diameter. No accessory muscle use. No wheezing, no crackles. ABDOMEN: Soft, bowel sounds present, nontender, no distention. CENTRAL NERVOUS SYSTEM: No facial droop. Speech is clear. Obeys simple commands. Moves extremities. EXTREMITIES: No edema, no erythema seen. Results & Data Results & Data Vital Signs (Past 12 Hours) Vital Signs Temp Pulse Pulse Pulse Resp BP Pulse Ox 10/13/22 12:05 36.7 C 86 18 132/71 95 10/13/22 08:00 36.7 C 88 18 129/52 L 97 10/13/22 07:22 78 10/13/22 03:50 79 Pulse Ox O2 Del Method O2 Del Method 10/13/22 12:05 Room Air 10/13/22 08:00 Room Air 10/13/22 07:22 10/13/22 03:50 90 Room Air
[2022-10-13] MEDS ORDERED: WARFARIN SOD 10 MG TAB PO SCH (16:00)
[2022-10-13] MEDS: TAMSULOSIN HCL 0.4 MG CAP PO SCH (20:22)
[2022-10-13] MEDS: ATORVASTATIN 20 MG TAB PO SCH (20:22)
[2022-10-14] MEDS: LEVOTHYROXINE SODIUM 200 MCG TABLET PO SCH (05:56)
[2022-10-14] MEDS: ACETAMINOPHEN 500 MG TAB PO SCH (05:56)
[2022-10-14 07:16] LABS: BUN Creatinine Ratio 18.5 (10-20); Calcium 8.5 mg/dl (8.6-10.3); Creatinine Clr Calc Pharmacy 84.6 ml/min; Est GFR (African American) 69.8 ml/min; Est GFR (Non-African American) 60.2 ml/min; Magnesium 1.9 mg/dl (1.7-2.4); Phosphorus 3.5 mg/dl (2.5-4.9); Potassium 4.2 mmol/L (3.5-5.1)
[2022-10-14 07:24] LABS: INR 1.8 (0.9-1.1); Prothrombin Time 19.4 Seconds (9.0-12.0)
[2022-10-14] MEDS ORDERED: Heparin IV Adult Wt-Based Low-Dose *NO* Bolus Protocol IV SCH (08:30)
[2022-10-14] MEDS: ASPIRIN 81 MG ECTAB PO SCH (08:40)
[2022-10-14] MEDS: FUROSEMIDE 40 MG TAB PO SCH (08:40)
[2022-10-14] MEDS: lisinopril 20 MG TAB PO SCH (08:40)
[2022-10-14] MEDS ORDERED: HEPARIN SODIUM/DEXTROSE 25,000 UNITS/500 ML BAG IV SCH (08:45)
--- NOTE | 2022-10-14 11:02 | Cardiology Progress Note ---
Date of Service October 14, 2022 Assessment & Plan (1) Travis-tachy syndrome: (2) A-fib: (3) Hypertension: Plan I reviewed the telemetry for the past 24 hours. The patient did not have significant pauses, just a rate controlled atrial fibrillation. In the lap maker hours the longest R-R interval was 3.2 seconds. I think at this point he can be discharged. I will arrange follow-up with the EP service for an evaluation regarding a possible pacemaker as an outpatient. I restarted his warfarin. Admission and Anticipated Discharge Date Admission Date: October 11, 2022 Subjective The patient had an uneventful night. No symptoms of dizziness or lightheadedness. Review of Systems Review of Systems: Review of Systems: See HPI for pertinent positives. All other 10 point review of systems are negative. Physical Exam Physical Exam: General: no acute distress and stated age Head: normocephalic, no masses, lesions, tenderness or abnormalities Eyes: conjunctiva are pink and non-injected, sclera clear Neck: supple, no adenopathy, no bruits, normal jugular venous pulse, no hepatojugular reflux Chest: normal shape and normal respiratory effort Lungs: clear to auscultation and percussion Cardiac Exam: - irregular rate & rhythm, no murmurs gallops or rubs - normal S1, normal S2 Pulses: 2(+) throughout Abdomen: abdomen soft, non-tender, no abnormal masses and no hepatosplenomegaly Musculoskeletal: no gait disturbance, no joint inflammation, no deforming arthritis Extremities: no edema and no cyanosis Neuro: grossly normal exam Results & Data Vital Signs (Past 12 Hours) Vital Signs Temp Pulse Pulse Resp BP Pulse Ox O2 Del Method 10/14/22 07:18 93 H 10/14/22 07:06 36.5 C 87 18 155/90 H 95 Room Air 10/14/22 03:28 36.6 C 92 H 18 125/72 97 Room Air Laboratory Results Laboratory Results - last 24 hr 10/14/22 10/14/22 06:37 06:37 PT 19.4 H INR 1.8 H Sodium 134 L Potassium 4.2 Chloride 98 Carbon Dioxide 31 Anion Gap 5 BUN 23 Creatinine 1.24 Est Cr Clr Drug Dosing 84.6 Est GFR ( Amer) 69.8 Est GFR (Non-Af Amer) 60.2 BUN/Creatinine Ratio 18.5 Glucose 91 Calcium 8.5 L Phosphorus 3.5 Magnesium 1.9 Medications Administered Current Inpatient Medications Acetaminophen (Acetaminophen 500 Mg Tab) 1,000 mg PO Q8H [facility] Stop: 11/10/22 21:55 Last Admin: 10/14/22 05:56 Dose: 1,000 mg Aspirin (Aspirin 81 Mg Ectab) 81 mg PO DAILY [facility] Stop: 11/11/22 08:59 Last Admin: 10/14/22 08:40 Dose: 81 mg Atorvastatin Calcium (Atorvastatin 20 Mg Tab) 20 mg PO HS [facility] Stop: 11/10/22 21:55 Last Admin: 10/13/22 20:22 Dose: 20 mg Famotidine (Famotidine 20 Mg Tab) 20 mg PO BID PRN PRN Reason: HEARTBURN/INDIGESTION Stop: 11/10/22 21:55 Furosemide (Furosemide 40 Mg Tab) 40 mg PO QAM [facility] Stop: 11/11/22 08:59 Last Admin: 10/14/22 08:40 Dose: 40 mg Heparin Sodium/Dextrose (Heparin Sodium/Dextrose) 25,000 units in 500 mls @ 20 mls/hr IV .Q24H [facility]; Protocol Stop: 11/13/22 08:44 Last Admin: 10/14/22 09:23 Dose: 1,000 units/hr, 20 mls/hr Levothyroxine Sodium (Levothyroxine Sodium 200 Mcg Tablet) 200 mcg PO DAILYBB [facility] Stop: 11/11/22 06:29 Last Admin: 10/14/22 05:56 Dose: 200 mcg Lisinopril (Lisinopril 20 Mg Tab) 20 mg PO DAILY [facility] Stop: 11/11/22 08:59 Last Admin: 10/14/22 08:40 Dose: 20 mg Polyethylene Glycol (Polyethylene (Miralax) 17 Gm Pack) 17 gm PO DAILY PRN PRN Reason: Constipation Stop: 11/10/22 21:55 Tamsulosin HCl (Tamsulosin Hcl 0.4 Mg Cap) 0.4 mg PO [facility] Stop: 11/10/22 21:55 Last Admin: 10/13/22 20:22 Dose: 0.4 mg Tramadol HCl (Tramadol Hcl 50 Mg Tablet) 100 mg PO Q6H PRN PRN Reason: severe pain Stop: 11/10/22 21:55 Last Admin: 10/13/22 10:34 Dose: 100 mg Warfarin Sodium (Warfarin Sod 5 Mg Tab) 5 mg PO [email or web address]@1600 [facility] Stop: 11/11/22 15:59 Last Admin: 10/12/22 16:08 Dose: 5 mg (2) A-fib Atrial fibrillation type: unspecified chronic Qualified Code(s): I48.20 - Chronic atrial fibrillation, unspecified
[2022-10-14] MEDS ORDERED: WARFARIN SOD 5 MG TAB PO ONE (12:28)
--- NOTE | 2022-10-14 12:42 | Discharge Summary ---
Date of Service October 14, 2022 Admission HPI Per Admitting Provider 67 yo M with h/o aortic aneurysm repair presents to the ER as a referral from his outpatient associate sales representative after abnormal zio patch results. The outpatient monitor revealed heart rates as high as 166 bpm wtih 80 pauses, the longest 9.3 seconds. 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 He has a history of paroxysmal atrial flutter s/p successful ablation in October 2016. Afib was recently noted now as of August 2022. He was recently infected with covid two weeks ago. The zio patch was originally ordered to assess the new onset afib. Today he is feeling sluggish and tired generally but better since recovering from recent covid infection. Denies fevers, chills, chest pain, SOB. His hip has chronic pain (right) and he is trying to et set up for a hip replacement. He takes tramadol/Tylenol for pain Admission Exam Per Admitting Provider CONSTITUTIONAL: WNWD, vitals as above, generally well-appearing, NAD EYES: normal conjunctivae, no scleral icterus ENT: external ear and nose normal, oropharynx clear, MMM NECK: trachea midline RESPIRATORY: clear to auscultation bilaterally, no crackles, rales or wheezes, normal respiratory effort CARDIOVASCULAR: irregular rate and irregular rhythm, 3/6 NANCIE in LSB, no gallops or rubs, no JVD, no peripheral edema CHEST: inspection of chest was normal GASTROINTESTINAL: soft, nontender, ND, no guarding MUSCULOSKELETAL: strength 5/5 throughout, head is normocephalic and atraumatic SKIN: warm and dry NEUROLOGIC: CN 2-12 grossly intact, no sensory deficit, normal cognition, normal speech, no tremor PSYCHIATRIC: alert cooperative and oriented to person, place and time. Euthymic mood, makes good eye contact, language grossly intact, recent and remote memory grossly intact. Principal Diagnosis Bradycardia tachycardia syndrome Hypertension A-fib Discharge Exam GENERAL: Alert and oriented x3. NAD, on RA. HEENT: No pallor, no icterus. Pupils equal, round and reactive to light. Oral mucosa moist. NECK: No JVD, no neck masses. HEART: S1 and S2 heard. irregular rate and rhythm. No murmur, no gallop. RESPIRATORY SYSTEM: Normal AP diameter. No accessory muscle use. No wheezing, no crackles. ABDOMEN: Soft, bowel sounds present, nontender, no distention. CENTRAL NERVOUS SYSTEM: No facial droop. Speech is clear. Obeys simple commands. Moves extremities. EXTREMITIES: No edema, no erythema seen. Discharge Data Allergies Allergy/AdvReac Type Severity Reaction Status Date / Time No Known Allergies Allergy Unknown Verified 10/11/22 17:40 Consultations 10/11/22 17:30 ED Decision to Admit Stat 10/11/22 21:56 Consult Cardiology Routine Hospital Course (1) Travis-tachy syndrome: Plan Six 7-year-old male with PMH of aortic aneurysm repair presented to the ED 10/11 upon referral from his outpatient associate sales representative after abnormal Zio patch results. Outpatient monitor revealed heart rate as high as 166 bpm with 80 pauses, the longest 9.3 seconds. He is being managed for the following: Travis-tachy syndrome: Results of outpatient zio patch revealing tachycardia with significant sinus pauses. Cardiology has evaluated him in the ER and recommends admission with possible pacemaker placement. Chronic high dose metoprolol (100mg daily) dc'd. Rate controlled. 10/12 ECHO: EF 60-65 %, mild MR, RV and LV systolic fxn is normal. Monitor labs with electrolytes daily. EKG daily. Lyme screen negative. Cardio on board, appreciate recs. Will benefit from OP PSG. f/u w/ cardio on DC, likely will need EP eval for pacer placement eval. CArdio ok w/ DC, pt aware and would like to go home. Pt to f/u w/ coumadin clinic on DC. Hypertension: Likely elevated based on the situation. No changes in home regimen. Continue Laix, lisinopril, and hold Toprol A-fib: rate controlled. Holding metoprolol as above and cont anticoagulation as above. Monitor INR daily. CKD (chronic kidney disease), stage III: chronic, stable and at baseline. Cont to monitor while admitted. 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 Now with paroxysmal afib. Cw/ anticoagulation as above. Monitor INR daily. DVT prophylaxis: Warfarin CODE STATUS: Full Code Patient being discharged home with following instruction at the point of discharge: Follow-up with the primary care physician within 1 week time and likely you will need labs CBC/CMP/magnesium. Follow-up with your cardiology in a month time and likely you will be referred to EP associate sales representative for possible pacemaker placement evaluation. Take your Coumadin as prescribed, follow-up with Coumadin clinic in 2 to 3 days upon discharge. Because of your snoring history, you will benefit from outpatient sleep study, coordinate with your PCP office as discussed at the bedside. Take your medications as prior. Home Health Attestation I certify that this patient is under my care and that I, or a physicians lizzy lozada working with me, had a face to-face encounter that meets the home health [id number] encounter requirements with this patient. The encounter with the patient was in whole, or in part, for the following medical condition, which is the primary reason for home health care (list medical condition): I certify that, based on my findings, the following services are medically necessary home health services: My clinical findings support the need for the above services because: Further, I certify that my clinical findings support that this patient is homebound (i.e. absences from home require considerable and taxing effort and are for medical reasons or mandaen services or infrequently or of short duration when for other reasons) because: Certification for Home Health Services: Based on the above findings, I certify that this patient is confined to the home and needs intermittent snf care, physical therapy and/or speech therapy or continues to need occupational therapy. The patient is under my care, and I have initiated the establishment of the plan of care. This patient will be followed by a physician who will periodically review the plan of care. Total Time Total Time Spent Total Time Spent (In Minutes): 45 Discharge Plan Discharge Items Patient Disposition: Home - Self-Care Reason For Visit: TACHY TRAVIS SYNDROME Discharge Diagnosis: Bradycardia tachycardia syndrome Hypertension A-fib Activity: Resume your previous activity Non-emergency contact: Primary Care Provider Call non-emergency contact if: you have any medication questions and your symptoms worsen Follow-up/Referrals: Bradford Chamberlain MD [Primary Care Provider] - Diet: Heart Healthy and Low Sodium (2gm) Addtl Attending Provider Instructions: Follow-up with the primary care physician within 1 week time and likely you will need labs CBC/CMP/magnesium. Follow-up with your cardiology in a month time and likely you will be referred to EP associate sales representative for possible pacemaker placement evaluation. Take your Coumadin as prescribed, follow-up with Coumadin clinic in 2 to 3 days upon discharge. Because of your snoring history, you will benefit from outpatient sleep study, coordinate with your PCP office as discussed at the bedside. Take your medications as prior. Pending Studies at Discharge: No Stand-Alone Forms: My [facility], Smoking Cessation Medications and DC Order Prescriptions: Continued warfarin 10 mg tablet See Rx Instructions .ROUTE .COMPLEX Qty: 90 1RF Dose Instruction: TAKE 1 TABLET BY MOUTH EVERY DAY DIRECTED Rx Instructions: TAKES 10 MG ON FRIDAY & FRIDAY MORNINGS. THEN 5 MG ON FRI, , FRI, FRI & SAT. MORNINGS acetaminophen 325 mg tablet 325 - 650 mg PO Q4H PRN (Reason: PAIN/FEVER) Patient Comments: 1-2 tablets PO Q4H PRN; atorvastatin 20 mg tablet 20 mg PO HS aspirin 81 mg tablet,delayed release (DR/EC) 81 mg PO DAILY Qty: 90 lisinopril 20 mg Tablet 20 mg PO DAILY sildenafil 100 mg Tablet 50 mg PO DAILY PRN (Reason: Erectile Dysfunction) Rx Instructions: administer 30 minutes to 4 hours before activity tamsulosin 0.4 mg Capsule 0.4 mg PO HS furosemide 20 mg tablet 40 mg PO QAM famotidine 20 mg tablet 20 mg PO BID PRN (Reason: HEARTBURN/INDIGESTION) levothyroxine 200 mcg tablet 200 mcg PO DAILYBB Discontinued metoprolol succinate 100 mg tablet extended release 24 hr 100 mg PO DAILY Qty: 180 Discharge Orders: Discharge Order (Routine); Ordered 10/14/22 Ordered By: Monica Pena Admission Data Admit Date/Time: 10/11/22 19:14 Attending Provider: Monica Pena Admit Provider: Jane Gutiérrez Primary Care Provider: Bradford Chamberlain Other Providers: Jane Gutiérrez ; Varun Butler
[2022-10-17] MEDS ORDERED: WARFARIN SOD 10 MG TAB PO SCH (16:00)
== END 2022-10-14 13:44 | disposition home or self-care (01) | DRG 309 ==
LOC: ED 16:04 → 2S 19:14 → SUATTDRO 19:14 → 2S 20:59
DX: Z87.891 Personal history of nicotine dependence; I49.5 Sick sinus syndrome; Z79.899 Other long term (current) drug therapy; Z79.82 Long term (current) use of aspirin; Z79.01 Long term (current) use of anticoagulants; Z79.890 Hormone replacement therapy; Z86.718 Personal history of other venous thrombosis and embolism; Z86.711 Personal history of pulmonary embolism; N18.30 Chronic kidney disease, stage 3 unspecified; I12.9 Hypertensive chronic kidney disease with stage 1 through stage 4 chronic kidney disease, or unspecified chronic kidney disease; I48.20 Chronic atrial fibrillation, unspecified; Z86.16 Personal history of COVID-19; I48.21 Permanent atrial fibrillation